=== PATIENT | female | born 1930 | race Caucasian/White ===

== ENCOUNTER 2017-08-12 14:50 | Inpatient (IN) | payer MEDICARE, OTHER ==
[~2017-08-12] VITALS: Ht 152.4 cm; Wt 75.4 kg
[~2017-08-12 14:50] MED LIST: CALCTAB36 PO; CAND32TA10 PO; CART300C PO; DORZ2SOL EACH EYE; LATA0.002 EACH EYE; MONT10TA4 PO; MULT1TAB59 PO; TOBRSUS9 RIGHT EYE; VITA2000 PO
[2017-08-12 14:58] VITALS: PULSE 104; RESP 18; TEMP 97.9; O2SAT 95
[2017-08-12 15:02] VITALS: BP 106/50; PULSE 104; RESP 20; O2SAT 95
[2017-08-12 15:10] VITALS: BP 106/50; O2SAT 95
--- NOTE | 2017-08-12 15:11 | PD ---
HPI Chief Complaint: Chest Pain Time Seen by Provider: 14:56 Travel History International Travel<30 days: No Contact w/Intl Traveler<30days: No Traveled to known affect area: No History of Present Illness HPI Patient comes from an [facility] complaining of chest pain that began shortly prior to arrival. Patient states she was sitting when she began feeling of pressure on left side of her chest with associated shortness of breath. Patient received 162 mg of aspirin along with oxygen by EMS that seemed to improve her symptoms, but not completely resolved. 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 Denies anything making it worse. Denies any radiation of the pain. Denies any headache, dizziness, numbness or tingling anywhere, back pain , headache, loss or change in bowel or bladder, or abdominal pain. PFSH Past Medical History Hx Anticoagulant Therapy: No Arthritis: Yes (OSTEOARTHRITIS) Asthma: Yes Autoimmune Disease: No Blood Disorders: Yes Anxiety: No Depression: No Heart Rhythm Problems: No Cancer: No Cardiovascular Problems: Yes High Cholesterol: Yes Chemotherapy: No Chest Pain: No Congestive Heart Failure: No COPD: No Cerebrovascular Accident: No Diabetes: No Diminished Hearing: No Endocrine: No Gastrointestinal Disorders: Yes GERD: No Glaucoma: Yes Genitourinary: No Hepatitis: No Hiatal Hernia: Yes Hypertension: Yes Immune Disorder: Yes (ITP) Musculoskeletal: Yes Neurologic: No Psychiatric: No Reproductive: Yes Respiratory: Yes Immunizations Current: Yes Myocardial Infarction: No Radiation Therapy: No Sickle Cell Disease: No Sleep Apnea: No Ulcer: No ?: Not Menopausal: Yes Past Surgical History Abdominal Surgery: Yes (EPIGASTRIC HERNIA) Appendectomy: Yes Arteriovenous Shunt: No Cholecystectomy: No Eye Surgery: Yes (BILAT CATARACT SURGERY WITH OLR) Gynecologic Surgery: Yes (HYSTERECTOMY) Hysterectomy: No Insulin Pump: No Joint Replacement: Yes (RT TKR; RT RADIAL HEAD) Neurologic Surgery: No Oral Surgery: Yes (DENTURE PREP) Pacemaker: No Other Surgery: Yes (IVC filter April 2007-PE) Social History Alcohol Use: Yes Tobacco Use: No Substance Use: No Allergies-Medications (Allergen,Severity, Reaction): Coded Allergies: No Known Allergies (Verified , 08/12/17) Reported Meds & Prescriptions Reported Meds & Active Scripts Active Dorzolamide Opth Drops (Dorzolamide HCl) 2% Soln 1 Drop EACH EYE BID Latanoprost Opth Drops (Latanoprost) 0.005% Drops 1 Drop EACH EYE HS Refrigerate until opened. Reported Bactrim DS (Sulfamethoxazole-Trimethoprim) 800-160 Mg Tab 1 Tab PO BID Ventolin Hfa 18 GM Inh (Albuterol Sulfate) 90 Mcg/Act Aer 2 Puff INH Q6H PRN Fluticasone Nasal [place] 50 Mcg/Act Naspr 50 Mcg EACH NARE BID 50 mcg/spray Calcium 500+D (Calcium Carbonate-Cholecalciferol) 500-400 Mg-Unit Tab 1 Tab PO DAILY Centrum Women Tablet (Multivitamin/Iron/Folic Acid) 1 Each Tablet 1 Tab PO DAILY Montelukast (Montelukast Sodium) 10 Mg Tab 1 Tab PO HS Cartia Xt (Diltiazem ER 24 HR) 300 Mg Caper 1 Cap PO DAILY Candesartan (Candesartan Cilexetil) 32 Mg Tab 1 Tab PO DAILY Vitamin D3 (Cholecalciferol) 2,000 Unit Cap 1 Cap PO DAILY Review of Systems Except as stated in HPI: all other systems reviewed are Neg Physical Exam Narrative GENERAL: Well-developed, overly nourished, in no acute distress, and non-ill appearing. SKIN: Focused skin assessment warm and dry. HEAD: Atraumatic. Normocephalic. EYES: Pupils equal and round. EOMI. No scleral icterus. No injection or drainage. ENT: No nasal bleeding or discharge. Mucous membranes pink and moist. NECK: Trachea midline. Supple. No nuclear rigidity. CARDIOVASCULAR: Regular rate and rhythm. Murmur appreciated. Radial pulses 2+ , intact, equal bilaterally. RESPIRATORY: No accessory muscle use. No respiratory distress. Clear to auscultation. Breath sounds equal bilaterally. MUSCULOSKELETAL: No obvious deformities. No clubbing. No cyanosis. No edema. Full range of motion. NEUROLOGICAL: Awake and alert. No obvious cranial nerve deficits. Motor grossly within normal limits. Normal speech. PSYCHIATRIC: Appropriate mood and affect; insight and judgment normal. Data Data Last Documented VS Vital Signs Date Time Temp Pulse Resp B/P (MAP) Pulse Ox O2 Delivery O2 Flow Rate FiO2 08/12/17 15:10 106/50 (68) 95 08/12/17 15:08 Room Air 08/12/17 15:02 104 20 08/12/17 14:58 97.9 Orders Orders Electrocardiogram (08/12/17 15:02) Basic Metabolic Panel (Bmp) (08/12/17 15:02) B-Type Natriuretic Peptide (08/12/17 15:02) Ckmb (Isoenzyme) Profile (08/12/17 15:02) Complete Blood Count With Diff (08/12/17 15:02) Magnesium (Mg) (08/12/17 15:02) Prothrombin Time / Inr (Pt) (08/12/17 15:02) Act Partial Throm Time (Ptt) (08/12/17 15:02) Troponin I (08/12/17 15:02) Chest, Single Ap (08/12/17 15:02) Ecg Monitoring (08/12/17 15:02) Bilateral Bp Monitoring (08/12/17 15:02) Iv Access Insert/Monitor (08/12/17 15:02) Oximetry (08/12/17 15:02) Oxygen Administration (08/12/17 15:02) Sodium Chloride 0.9% Flush (Ns Flush) (08/12/17 15:15) Admit Order (Ed Use Only) (08/12/17 16:44) Labs Laboratory Tests Test 08/12/17 15:25 White Blood Count 8.0 TH/MM3 Red Blood Count 4.38 MIL/MM3 Hemoglobin 12.7 GM/DL Hematocrit 39.6 % Mean Corpuscular Volume 90.3 FL Mean Corpuscular Hemoglobin 28.9 PG Mean Corpuscular Hemoglobin Concent 32.0 % Red Cell Distribution Width 16.0 % Platelet Count 63 TH/MM3 Mean Platelet Volume 12.7 FL Neutrophils (%) (Auto) 69.6 % Lymphocytes (%) (Auto) 17.7 % Monocytes (%) (Auto) 10.8 % Eosinophils (%) (Auto) 1.5 % Basophils (%) (Auto) 0.4 % Neutrophils # (Auto) 5.6 TH/MM3 Lymphocytes # (Auto) 1.4 TH/MM3 Monocytes # (Auto) 0.9 TH/MM3 Eosinophils # (Auto) 0.1 TH/MM3 Basophils # (Auto) 0.0 TH/MM3 CBC Comment AUTO DIFF Prothrombin Time 11.7 SEC Prothromb Time International Ratio 1.1 RATIO Activated Partial Thromboplast Time 24.0 SEC Blood Urea Nitrogen 25 MG/DL Creatinine 1.53 MG/DL Random Glucose 121 MG/DL Calcium Level 9.1 MG/DL Magnesium Level 2.5 MG/DL Sodium Level 141 MEQ/L Potassium Level 4.3 MEQ/L Chloride Level 108 MEQ/L Carbon Dioxide Level 26.1 MEQ/L Anion Gap 7 MEQ/L Estimat Glomerular Filtration Rate 32 ML/MIN Total Creatine Kinase 59 U/L Troponin I 0.20 NG/ML B-Type Natriuretic Peptide 311 PG/ML MDM Medical Decision Making Medical Screen Exam Complete: Yes Emergency Medical Condition: Yes Interpretation(s) EKG reviewed by Dr. Wright shows normal sinus rhythm with ventricular rate of 96. No STEMI. Chest x-ray read by the radiologist shows: Cardiomegaly with small left basilar effusion and atelectasis. Differential Diagnosis Acute coronary syndrome, pneumonia, electrolyte abnormality, pneumothorax, angina, other Narrative Course Patient was seen and examined. IV was established patient states and cardiac monitoring. Initial laboratory and radiological studies were ordered. Discussed all findings and plan care of patient was agreeable for admission. All questions were answered. Discussed patient with Dr. Wright, who is in agreement with plan of care and disposition. Discussed patient with hospitalist who is agreeable to admit the patient. Patient remained stable throughout ED course. Physician Communication Physician Communication [id number] Kumar's QUINTEN Emelina, who is agreeable to admit the patient. Diagnosis Primary Impression: Non-STEMI (non-ST elevated myocardial infarction) Additional Impression: Pleural effusion Admitting Information Admitting Physician Requests: Admit Condition: Stable Nguyễn Hernandez Aug 12, 2017 15:11
[2017-08-12] MEDS ORDERED: SODIUM CHLORIDE 0.9% FLUSH 10 ML FLUSH IVF PRN (15:15)
[2017-08-12] MEDS ORDERED: BACT800T5 PO (15:15)
[2017-08-12] MEDS ORDERED: VENTAER INH (15:15)
[2017-08-12] MEDS ORDERED: FLUT50SP EACH NARE (15:15)
--- NOTE | 2017-08-12 15:39 | RADRPT ---
EXAM DATE/TIME: 08/12/2017 15:12 [place] COMPARISON: SHOULDER RIGHT COMPLETE (>2VWS), November 19, 2014, 16:52. INDICATIONS : Short of breath. MEDICAL HISTORY : None. SURGICAL HISTORY : None. ENCOUNTER: Initial ACUITY: 1 day PAIN SCORE: 0/10 LOCATION: Bilateral chest FINDINGS: The exam demonstrates cardiomegaly. There is a small left basilar effusion. There are chronic appeari ng interstitial changes. The visualized bony structures are grossly intact. CONCLUSION: 1. Cardiomegaly with small left basilar effusion and atelectasis. Alex Mondragon MD on August 12, 2017 at 15:33 Board Certified Radiologist. This report was verified electronically.
[2017-08-12 15:41] LABS: AUTOMATED NEUTROPHIL # 5.6 TH/MM3 (1.8-7.7); BASOPHIL % 0.4 % (0.0-2.0); EOSINOPHIL # 0.1 TH/MM3 (0-0.4); EOSINOPHIL % 1.5 % (0.0-4.0); HEMATOCRIT 39.6 % (35.0-46.0); LYMPH % 17.7 % (9.0-44.0); LYMPHOCYTE # 1.4 TH/MM3 (1.0-4.8); MEAN CELL VOLUME 90.3 FL (80.0-100.0); MEAN CORPUSCULAR HEMOGLOBIN 28.9 PG (27.0-34.0); MONO % 10.8 % (0.0-8.0); NEUT % 69.6 % (16.0-70.0); PLATELET COUNT 63 TH/MM3 (150-450); RED BLOOD COUNT 4.38 MIL/MM3 (4.00-5.30)
[2017-08-12 15:49] LABS: INTERNATIONAL NORMALIZED RATIO 1.1 RATIO; PROTHROMBIN TIME - PATIENT 11.7 SEC (9.8-11.6)
[2017-08-12 15:59] LABS: BICARBONATE 26.1 MEQ/L (21.0-32.0); MAGNESIUM 2.5 MG/DL (1.5-2.5); POTASSIUM 4.3 MEQ/L (3.5-5.1)
[2017-08-12 16:19] LABS: HEMO FLAGS AUTO DIFF
[2017-08-12 17:00] VITALS: BP 111/53; PULSE 81; RESP 16; O2SAT 96
[2017-08-12 17:01] LABS: OVALOCYTES 1+ (NORMAL); PLATELET ESTIMATE SMEAR LOW (NORMAL); PLATELET MORPHOLOGY GIANT (NORMAL); SCAN/DIFF AUTO DIFF CONFIRMED
[2017-08-12] MEDS ORDERED: LACTULOSE SYRUP 20 GM/30 ML CUP PO PRN (17:15)
[2017-08-12] MEDS ORDERED: ONDANSETRON HCL 4 MG/2 ML VIAL IVP PRN (17:15)
[2017-08-12] MEDS ORDERED: NALOXONE HCL 0.4 MG/ML AMP IV PUSH PRN (17:15)
[2017-08-12] MEDS ORDERED: SENNOSIDES 8.6 MG TAB PO PRN (17:15)
[2017-08-12] MEDS ORDERED: BISACODYL 10 MG SUPP RECTAL PRN (17:15)
[2017-08-12] MEDS ORDERED: METOCLOPRAMIDE HCL 10 MG/2 ML VIAL IV PUSH PRN (17:15)
[2017-08-12] MEDS ORDERED: SODIUM CHLORIDE 0.9% FLUSH 10 ML FLUSH IV FLUSH PRN (17:15)
[2017-08-12] MEDS ORDERED: ACETAMINOPHEN 325 MG TAB PO PRN (17:15)
[2017-08-12] MEDS ORDERED: MAGNESIUM HYDROXIDE SUSP 30 ML CUP PO PRN (17:15)
[2017-08-12] MEDS ORDERED: PROCHLORPERAZINE 25 MG SUPP RECTAL PRN (17:15)
[2017-08-12] MEDS ORDERED: RESP: ALBUTEROL 2.5 MG/IPRATROPIUM 0.5 MG NEB (PRN) NEB (17:30)
[2017-08-12] MEDS ORDERED: MORPHINE SULFATE 4 MG/ML INJ IV PUSH PRN (17:30)
[2017-08-12] MEDS ORDERED: NITROGLYCERIN 400 MCG/SPRAY 4.9 GM BOTTLE SL PRN (17:45)
[2017-08-12] MEDS ORDERED: ALBUTEROL SULFATE 90 MCG/ACT HFA 8 GM INHALER INH PRN (17:45)
[2017-08-12] MEDS ORDERED: FUROSEMIDE 40 MG/4 ML VIAL IV PUSH ONE (18:00)
[2017-08-12] MEDS ORDERED: PANTOPRAZOLE SOD 40 MG DELAYED RELEASE TAB PO ONE (18:00)
--- NOTE | 2017-08-12 18:05 | HHI.HP ---
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 Covington, aortic stenosis, history of PE previously on Coumadin status post IVC filter placement, dyslipidemia, asthma and glaucoma who presents to [facility] ED with complaints of chest pain and shortness of breath x 1 day. Patient states that she was at the assisted living facility [facility] earlier today when she woke up from a nap and experienced left- sided chest pain while still in bed with associated shortness of breath. Patient denies any radicular complaints. Patient was given 162mg aspirin as well as oxygen by EMS with improvement in her symptoms. At present, patient denies any complaints of chest pain but does report some mild dyspnea. She states she's only had lower extremity swelling since she's been in our ED today. Patient was at home up until last Friday when she was admitted to [facility] due to her normal caregiver being out of town. In the ED, patient was noted to have elevated troponin 0.20. EKG was unremarkable. Patient's BNP is slightly elevated at 311. Chest x-ray revealed a small left pleural effusion. She was also noted to have elevated creatinine 1.53. Patient has a natural science curator who she thinks is Dr. Lao. Review of Systems Constitutional: COMPLAINS OF: Fatigue, DENIES: Diaphoretic episodes, Fever, Weight gain, Weight loss, Chills, Dizziness, Change in appetite Endocrine: DENIES: Abnorml menstrual pattern, Heat/cold intolerance, Polydipsia Eyes: DENIES: Blurred vision, Diplopia, Eye inflammation, Eye pain Ears, nose, mouth, throat: DENIES: Tinnitus, Hearing loss, Vertigo, Nasal discharge, Oral lesions Respiratory: DENIES: Apneas, Cough, Snoring, Wheezing, Hemoptysis Cardiovascular: COMPLAINS OF: Chest pain, Lower Extremity Edema, DENIES: Palpitations, Syncope, Dyspnea on Exertion, PND Gastrointestinal: DENIES: Abdominal pain, Black stools, Bloody stools Genitourinary: DENIES: Abnormal vaginal bleeding, Dysmenorrhea, Dyspareunia Musculoskeletal: DENIES: Joint pain, Muscle aches, Stiffness Integumentary: DENIES: Abnormal pigmentation, Pruritus Hematologic/lymphatic: DENIES: Bruising, Lymphadenopathy Immunologic/allergic: DENIES: Eczema, Urticaria Neurologic: COMPLAINS OF: Abnormal gait, DENIES: Headache, Localized weakness, Paresthesias, Seizures, Speech Problems Psychiatric: DENIES: Anxiety, Confusion, Mood changes, Depression, Hallucinations, Agitation, Suicidal Ideation, Homicidal Ideation Except as stated in HPI: all other systems reviewed are Neg Past Family Social History Past Medical History Hypertension Hyperlipidemia Aortic stenosis Chronic ITP with platelet count chronically around 30,000 Asthma Glaucoma 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 Bactrim DS (Sulfamethoxazole-Trimethoprim) 800-160 Mg Tab 1 Tab PO BID Ventolin Hfa 18 GM Inh (Albuterol Sulfate) 90 Mcg/Act Aer 2 Puff INH Q6H PRN Fluticasone Nasal [place] 50 Mcg/Act Naspr 50 Mcg EACH NARE BID 50 mcg/spray Calcium 500+D (Calcium Carbonate-Cholecalciferol) 500-400 Mg-Unit Tab 1 Tab PO DAILY Centrum Women Tablet (Multivitamin/Iron/Folic Acid) 1 Each Tablet 1 Tab PO DAILY Montelukast (Montelukast Sodium) 10 Mg Tab 1 Tab PO HS Cartia Xt (Diltiazem ER 24 HR) 300 Mg Caper 1 Cap PO DAILY Candesartan (Candesartan Cilexetil) 32 Mg Tab 1 Tab PO DAILY Vitamin D3 (Cholecalciferol) 2,000 Unit Cap 1 Cap PO DAILY Allergies: Coded Allergies: No Known Allergies (Verified , 08/12/17) Active Ordered Medications Current Medications Medications (Trade) Dose Ordered Sig/Anamika Route Start Time Stop Time Status Last Admin (NS Flush) 2 ml UNSCH PRN IVF 08/12/17 15:15 (NS Flush) 2 ml UNSCH PRN IV FLUSH 08/12/17 17:15 UNV (NS Flush) 2 ml BID IV FLUSH 08/12/17 21:00 UNV (Tylenol) 650 mg Q4H PRN PO 08/12/17 17:15 UNV (Zofran Inj) 4 mg Q6H PRN IVP 08/12/17 17:15 UNV (Reglan Inj) 5 mg Q6H PRN IV PUSH 08/12/17 17:15 UNV (Compazine Supp) 25 mg Q12H PRN SD 08/12/17 17:15 UNV (Narcan Inj) 0.4 mg UNSCH PRN IV PUSH 08/12/17 17:15 UNV (Mary-Colace) 1 tab BID PO 08/12/17 21:00 UNV (Milk Of Magnesia Liq) 30 ml Q12H PRN PO 08/12/17 17:15 UNV (Senokot) 17.2 mg Q12H PRN PO 08/12/17 17:15 UNV (Dulcolax Supp) 10 mg DAILY PRN RECTAL 08/12/17 17:15 UNV (Lactulose Liq) 30 ml DAILY PRN PO 08/12/17 17:15 UNV (Lasix Inj) 40 mg ONCE ONCE IV PUSH 08/12/17 17:30 08/12/17 17:31 UNV (Ecotrin Ec) 81 mg DAILY PO 08/13/17 09:00 UNV (Morphine Inj) 2 mg Q3H PRN IV PUSH 08/12/17 17:30 UNV Family History Patient denies any significant past family medical history. Social History Patient denies any tobacco use. She admits alcohol consumption of 2 glasses of white wine nightly. She denies any illicit drug use. 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 Physical Exam Vital Signs Vital Signs Date Time Temp Pulse Resp B/P (MAP) Pulse Ox O2 Delivery O2 Flow Rate FiO2 08/12/17 17:00 81 16 111/53 (72) 96 Room Air 08/12/17 15:10 106/50 (68) 95 08/12/17 15:08 96 Room Air 08/12/17 15:02 104 20 106/50 (68) 95 Room Air 08/12/17 14:58 97.9 104 18 95 Physical Exam GENERAL: This is a well-nourished, well-developed patient, in no apparent distress. Awake and alert. Sitting up in hospital bed. SKIN: (+)hyperpigmentation changes noted anterior BLEs. Warm and dry. HEAD: Atraumatic. Normocephalic. No temporal or scalp tenderness. EYES: Pupils equal round and reactive. Extraocular motions intact. No scleral icterus. No injection or drainage. ENT: Nose without bleeding, purulent drainage. Throat without erythema, tonsillar hypertrophy or exudate. Uvula midline. Airway patent. NECK: Trachea midline. No lymphadenopathy. Supple, nontender, no meningeal signs. CARDIOVASCULAR: Regular rate and rhythm without murmurs, gallops, or rubs. S1. S2 NO S3 OR S4 RESPIRATORY: Clear to auscultation. Breath sounds equal bilaterally. No wheezes , rales, or rhonchi. GASTROINTESTINAL: Abdomen soft, non-tender, nondistended. No hepato-splenomegaly , or palpable masses. No guarding. MUSCULOSKELETAL: 2+ pitting edema bilateral lower extremities. NO CLUBBING OR CYANOSIS NEUROLOGICAL: Awake and alert. Patient is able to move all extremities spontaneously. Normal speech. INSIGHT AND JUDGEMENT ARE GOOD MOOD AND BEHAVIOR ARE APPROPRIATE Laboratory Laboratory Tests Test 08/12/17 15:25 White Blood Count 8.0 Red Blood Count 4.38 Hemoglobin 12.7 Hematocrit 39.6 Mean Corpuscular Volume 90.3 Mean Corpuscular Hemoglobin 28.9 Mean Corpuscular Hemoglobin Concent 32.0 Red Cell Distribution Width 16.0 Platelet Count 63 Mean Platelet Volume 12.7 Neutrophils (%) (Auto) 69.6 Lymphocytes (%) (Auto) 17.7 Monocytes (%) (Auto) 10.8 Eosinophils (%) (Auto) 1.5 Basophils (%) (Auto) 0.4 Neutrophils # (Auto) 5.6 Lymphocytes # (Auto) 1.4 Monocytes # (Auto) 0.9 Eosinophils # (Auto) 0.1 Basophils # (Auto) 0.0 CBC Comment AUTO DIFF Differential Comment AUTO DIFF CONFIRMED Platelet Estimate LOW Platelet Morphology Comment GIANT Ovalocytes 1+ Prothrombin Time 11.7 Prothromb Time International Ratio 1.1 Activated Partial Thromboplast Time 24.0 Blood Urea Nitrogen 25 Creatinine 1.53 Random Glucose 121 Calcium Level 9.1 Magnesium Level 2.5 Sodium Level 141 Potassium Level 4.3 Chloride Level 108 Carbon Dioxide Level 26.1 Anion Gap 7 Estimat Glomerular Filtration Rate 32 Total Creatine Kinase 59 Troponin I 0.20 B-Type Natriuretic Peptide 311 Result Diagram: 08/12/17 1525 08/12/17 1525 Imaging Last Impressions Chest X-Ray 08/12/17 1502 Signed Impressions: Service Date/Time: Saturday, August 12, 2017 15:12 - CONCLUSION: 1. Cardiomegaly with small left basilar effusion and atelectasis. MD Sabina Edwards VTE Risk Assessment Sabina VTE Risk Assessment: Mod/High Risk (score >= 2) VTE Pharm Contraindication: Thrombocytopenia(<50) N[place]ini Risk Assessment Model Point Value = 1 Point Value = 2 Point Value = 3 Point Value = 5 Age 41-60 Minor surgery BMI > 25 kg/m2 Swollen legs Varicose veins or History of unexplained or recurrent spontaneous Oral contraceptives or hormone replacement Sepsis (< 1 month) Serious lung disease, including pneumonia (< 1 month) Abnormal pulmonary function Acute myocardial infarction Congestive heart failure (< 1 month) History of inflammatory bowel disease Medical patient at bed rest Age 61-74 Arthroscopic surgery Major open surgery (> 45 min) Laparoscopic surgery (> 45 min) Malignancy Confined to bed (> 72 hours) Immobilizing plaster cast Central venous access Age >= 75 History of VTE Family history of VTE Factor V Leiden Prothrombin [id number] Lupus anticoagulant Anticardiolipin antibodies Elevated serum homocysteine Heparin-induced thrombocytopenia Other congenital or acquired thrombophilia Stroke (< 1 month) Elective arthroplasty Hip, pelvis, or leg fracture Acute spinal cord injury (< 1 month) Prophylaxis Regimen Total Risk Factor Score Risk Level Prophylaxis Regimen 0-1 Low Early ambulation 2 Moderate Order ONE of the following: *Sequential Compression Device (SCD) *Heparin 5000 units SQ BID 3-4 Higher Order ONE of the following medications: *Heparin 5000 units SQ TID *Enoxaparin/Lovenox 40 mg SQ daily (WT < 150 kg, CrCl > 30 mL/min) *Enoxaparin/Lovenox 30 mg SQ daily (WT < 150 kg, CrCl > 10-29 mL/min) *Enoxaparin/Lovenox 30 mg SQ BID (WT < 150 kg, CrCl > 30 mL/min) AND/OR *Sequential Compression Device (SCD) 5 or more Highest Order ONE of the following medications: *Heparin 5000 units SQ TID (Preferred with Epidurals) *Enoxaparin/Lovenox 40 mg SQ daily (WT < 150 kg, CrCl > 30 mL/min) *Enoxaparin/Lovenox 30 mg SQ daily (WT < 150 kg, CrCl > 10-29 mL/min) *Enoxaparin/Lovenox 30 mg SQ BID (WT < 150 kg, CrCl > 30 mL/min) AND *Sequential Compression Device (SCD) Assessment and Plan Assessment and Plan 86-year-old female with a past medical history significant for hypertension, 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 Covington, aortic stenosis, history of PE previously on Coumadin status post IVC filter placement, dyslipidemia, asthma and glaucoma who presents to [facility] ED with complaints of chest pain and shortness of breath x 1 day. NSTEMI - Initial troponin 0.20 - EKG personally interpreted revealing normal sinus rhythm with no evidence of acute ischemia - Consult cardiology - Continue to cycle cardiac enzymes and EKGs - ASA daily - Morphine IV prn chest pain - Continuous cardiac monitoring - Supplemental oxygen - unable to start on Heparin drip due to hx of chronic ITP CHF, acute - CXR personally reviewed showing cardiomegaly with small left basilar effusion and atelectasis - BNP 311 - Lasix IV 40 mg 1 - strict I&Os - obtain 2D echocardiogram - fluid/salt restricted diet - Supplemental oxygen. Monitor strict I's. SABIHA - Creatinine 1.53, GFR 32 - Baseline creatinine appears to be around 0.9 - Avoid nephrotoxic agents - BUN elevated, possibly due to dehydration - am labs to monitor trend Chronic ITP - Patient follows with Dr. Covington as outpatient with a chronic platelet level of 30,000. Currently plt count 63,000. - Consult hematology/Dr. Covington to assist with anticoagulation Hypertension - Controlled at present - Resume patient's home antihypertensives to include diltiazem 300 mg by mouth daily, candesartan 32mg daily (may need to hold if creatinine fxn worsens) - Monitor BP Asthma, not in acute exacerbation - Albuterol inhaler when necessary - Resume patient's montelukast 10mg daily Glaucoma - Resume home eyedrops Hx of PE previously on Coumadin s/p IVC filter placement - stable Elevated blood sugar - No documented history of diabetes - obtain HgbA1c DVT prophylaxis - Bilateral SCD/TANA hose The exam, history, and the medical decision-making described in the above note were completed with the assistance of the mid-level provider. I reviewed and agree with the findings presented. I attest that I had a [id number] encounter with the patient on the same day, and personally performed and documented my assessment and findings in the medical record. Code Status FULL CODE Discussed Condition With ALEXEY ALMENDAREZ, patient, Dr. Kumar AND FAMILY AT BEDSIDE Physician Certification 2 Midnight Certification Type: Admission for Inpatient Services Order for Inpatient Services The services are ordered in accordance with Medicare regulations or non- Medicare payer requirements, as applicable. In the case of services not specified as inpatient-only, they are appropriately provided as inpatient services in accordance with the 2-midnight benchmark. Estimated LOS (days): 3 3 days is the estimated time the patient will need to remain in the hospital, assuming treatment plan goals are met and no additional complications. Post-Hospital Plan: Not yet determined Emelina Montalvo Aug 12, 2017 18:05 Bradley Kumar DO Aug 12, 2017 18:38
[2017-08-12 18:15] LABS: BACTERIA, URINE RARE /hpf; BLOOD, URINE NEG (NEG); COMMENT (UR) CULTURE INDICATED; CULTURE IF INDICATED CULTURE INDICATED; GLUCOSE,URINE NEG (NEG); KETONE, URINE NEG (NEG); NITRITE,URINE NEG (NEG); RENAL EPITHELIAL CELLS <1 /hpf; URINE COLOR YELLOW (YELLW/STRAW)
[2017-08-12 18:35] VITALS: O2SAT 97
[2017-08-12 20:00] VITALS: BP 107/54; PULSE 69; PULSE 78; RESP 18; TEMP 97.3; O2SAT 96
[2017-08-12] MEDS: DORZOLAMIDE 2% OPTH SOLN 200 DROP/10 ML BTLO EACH EYE SCH (20:33)
[2017-08-12] MEDS: LATANOPROST 0.005% OPHT SOLN 2.5 ML BTL EACH EYE SCH (20:33)
[2017-08-12] MEDS: FLUTICASONE PROPIONATE 50 MCG/ACT 16 GM NASAL SPRAY EACH NARE SCH (20:33)
[2017-08-12] MEDS: SODIUM CHLORIDE 0.9% FLUSH 10 ML FLUSH IV FLUSH SCH (20:34)
[2017-08-12] MEDS: MONTELUKAST SODIUM 10 MG TAB PO SCH (20:35)
[2017-08-12] MEDS: DOCUSATE SODIUM 50 MG/SENNA 8.6 MG TAB PO SCH (20:35)
[2017-08-12] MEDS: guaiFENesin E.R. 600 MG TAB PO SCH (20:35)
[2017-08-12] MEDS: SULFAMETHOXAZOLE-TRIMETHOPRIM DS 800-160 MG TAB PO SCH (20:35)
[2017-08-13] VITALS (9 sets, daily range): BP systolic 96–114; BP diastolic 47–55; PULSE 67–82; RESP 16–20; TEMP 97.3–98.5; O2SAT 93–97
[2017-08-13 03:47] LABS: AUTOMATED NEUTROPHIL # 3.8 TH/MM3 (1.8-7.7); BASOPHIL % 0.4 % (0.0-2.0); EOSINOPHIL # 0.2 TH/MM3 (0-0.4); EOSINOPHIL % 2.9 % (0.0-4.0); HEMATOCRIT 37.2 % (35.0-46.0); LYMPH % 25.3 % (9.0-44.0); LYMPHOCYTE # 1.7 TH/MM3 (1.0-4.8); MEAN CELL VOLUME 89.5 FL (80.0-100.0); MEAN CORPUSCULAR HEMOGLOBIN 29.5 PG (27.0-34.0); NEUT % 56.4 % (16.0-70.0); PLATELET COUNT 53 TH/MM3 (150-450); RED BLOOD COUNT 4.16 MIL/MM3 (4.00-5.30); WHITE BLOOD COUNT 6.8 TH/MM3 (4.0-11.0)
[2017-08-13 03:50] LABS: HEMO FLAGS AUTO DIFF
[2017-08-13 04:04] LABS: ALT (GPT) 30 U/L (10-53); ANION GAP 7 MEQ/L (5-15); AST (GOT) 16 U/L (15-37); BICARBONATE 26.1 MEQ/L (21.0-32.0); BLOOD UREA NITROGEN 26 MG/DL (7-18); CHLORIDE 108 MEQ/L (98-107); GLOMERULAR FILTRATION RATE 33 ML/MIN (>89); MAGNESIUM 2.5 MG/DL (1.5-2.5); POTASSIUM 3.9 MEQ/L (3.5-5.1); SODIUM (NA) 141 MEQ/L (136-145)
[2017-08-13 04:07] LABS: ALKALINE PHOSPHATASE 67 U/L (45-117); FREE T4 0.89 NG/DL (0.76-1.46); HDL CHOLESTEROL 78.2 MG/DL (40.0-60.0); LDL CHOLESTEROL 93 MG/DL (0-99); TOTAL BILIRUBIN ADULT 0.5 MG/DL (0.2-1.0)
[2017-08-13 05:05] LABS: ACANTHOCYTES OCC (NORMAL); OVALOCYTES 1+ (NORMAL); PLATELET ESTIMATE SMEAR LOW (NORMAL); PLATELET MORPHOLOGY ENLARGED (NORMAL); SCAN/DIFF AUTO DIFF CONFIRMED
[2017-08-13] MEDS: guaiFENesin E.R. 600 MG TAB PO SCH ×2 (09:12→20:18)
[2017-08-13] MEDS: DILTIAZEM-CD 300 MG CAP ER PO SCH (09:12)
[2017-08-13] MEDS: LOSARTAN 50 MG TAB PO SCH (09:12)
[2017-08-13] MEDS: SULFAMETHOXAZOLE-TRIMETHOPRIM DS 800-160 MG TAB PO SCH ×2 (09:12→20:18)
[2017-08-13] MEDS: MULTIVITAMIN TAB PO SCH (09:12)
[2017-08-13] MEDS: DOCUSATE SODIUM 50 MG/SENNA 8.6 MG TAB PO SCH (09:13)
[2017-08-13] MEDS: PANTOPRAZOLE SOD 40 MG DELAYED RELEASE TAB PO SCH (09:13)
[2017-08-13] MEDS: FUROSEMIDE 40 MG TAB PO SCH (09:13)
[2017-08-13] MEDS: CALCIUM/VITAMIN D 250 MG/125 U TAB PO SCH (09:13)
[2017-08-13] MEDS: CHOLECALCIFEROL (VIT D3) 1000 UNIT TAB PO SCH (09:13)
[2017-08-13] MEDS: ASPIRIN EC 81 MG TABEC PO SCH (09:13)
[2017-08-13] MEDS: DORZOLAMIDE 2% OPTH SOLN 200 DROP/10 ML BTLO EACH EYE SCH ×2 (09:17→20:19)
[2017-08-13] MEDS: FLUTICASONE PROPIONATE 50 MCG/ACT 16 GM NASAL SPRAY EACH NARE SCH ×2 (09:17→20:19)
[2017-08-13] MEDS: SODIUM CHLORIDE 0.9% FLUSH 10 ML FLUSH IV FLUSH SCH ×2 (09:20→20:17)
[2017-08-13 09:33] LABS: HEMOGLOBIN A1a 1.3 %; HEMOGLOBIN A1b 0.9 %; HEMOGLOBIN Ao 84.5 %; HEMOGLOBIN P3 5.6 %
--- NOTE | 2017-08-13 10:20 | HHI.PR ---
Subjective Remarks Follow-up atypical chest pain/angina 08/13/17-patient seen and examined, denies anymore chest pain since admission. No other issues. Awaiting for cardiology consult Objective Vitals Vital Signs Date Time Temp Pulse Resp B/P (MAP) Pulse Ox O2 Delivery O2 Flow Rate FiO2 08/13/17 08:00 97.3 81 20 107/53 (71) 93 08/13/17 04:00 97.9 82 16 104/52 (69) 95 08/13/17 00:00 98.2 67 18 101/55 (70) 95 08/12/17 20:00 69 08/12/17 20:00 Room Air 08/12/17 20:00 97.3 78 18 107/54 (71) 96 08/12/17 18:35 97 21 08/12/17 17:00 81 16 111/53 (72) 96 Room Air 08/12/17 15:10 106/50 (68) 95 08/12/17 15:08 96 Room Air 08/12/17 15:02 104 20 106/50 (68) 95 Room Air 08/12/17 14:58 97.9 104 18 95 I/O 08/12/17 08/12/17 08/12/17 08/13/17 08/13/17 08/13/17 07:00 15:00 23:00 07:00 15:00 23:00 Output Total 900 ml Balance -900 ml Output Urine Total 900 ml Result Diagram: 08/13/17 0320 08/13/17 0320 Imaging Last Impressions Chest X-Ray 08/12/17 1502 Signed Impressions: Service Date/Time: Saturday, August 12, 2017 15:12 - CONCLUSION: 1. Cardiomegaly with small left basilar effusion and atelectasis. Alex Mondragon MD Objective Remarks GENERAL: NAD SKIN: Warm and dry. HEAD: Normocephalic. EYES: No scleral icterus. No injection or drainage. NECK: Supple, trachea midline. No JVD or lymphadenopathy. CARDIOVASCULAR: Regular rate and rhythm without murmurs, gallops, or rubs. RESPIRATORY: Breath sounds equal bilaterally. No accessory muscle use. GASTROINTESTINAL: Abdomen soft, non-tender, nondistended. MUSCULOSKELETAL: No cyanosis, or edema. BACK: Nontender without obvious deformity. No CVA tenderness. A/P Problem List: (1) Pleural effusion ICD Code: J90 - Pleural effusion, not elsewhere classified Status: Acute (2) Non-STEMI (non-ST elevated myocardial infarction) ICD Code: I21.4 - Non-ST elevation (NSTEMI) myocardial infarction Status: Acute Assessment and Plan 86-year-old female with NSTEMI - Consult cardiology - ASA daily - Morphine IV prn chest pain - unable to start on Heparin drip due to hx of chronic ITP - 2-D echo pending CHF, acute - CXR personally reviewed showing cardiomegaly with small left basilar effusion and atelectasis - BNP 311 - Lasix IV 40 mg 1 - strict I&Os - obtain 2D echocardiogram SABIHA - Creatinine 1.53, GFR 32 - Baseline creatinine appears to be around 0.9 - Avoid nephrotoxic agents Chronic ITP - Patient follows with Dr. Covington as outpatient with a chronic platelet level of 30,000. Currently plt count 63,000. - Consult hematology/Dr. Covington to assist with anticoagulation Hypertension - BP soft - Currently on diltiazem 300 mg by mouth daily, candesartan 32mg daily (may need to hold if creatinine fxn worsens) - Monitor BP Asthma, not in acute exacerbation - Albuterol inhaler when necessary - Continue montelukast 10mg daily Glaucoma - Continue home eyedrops Hx of PE previously on Coumadin s/p IVC filter placement - stable Elevated blood sugar - No documented history of diabetes - HgbA1c pending DVT prophylaxis - Bilateral SCD/Salty Olson MD Aug 13, 2017 10:20
--- NOTE | 2017-08-13 12:20 | ECHRPT ---
Indication: heart failure CONCLUSIONS Normal left ventricular size. Mild concentric left ventricular hypertrophy. The left ventricular systolic function is normal with an estimated ejection fraction in the range of 60-65%. The left atrial size is moderately dilated. Mild mitral valve regurgitation. Mitral annular calcification is present. Severe aortic valve stenosis. There is mild tricuspid valve regurgitation. The estimated pulmonary arterial pressure is 46.2 mmHg. BP: / HR: Rhythm: MEASUREMENTS (Male / Female) Normal Values Technical Quality:Good 2D ECHO LV Diastolic Diameter PLAX 4.6 cm 4.2 - 5.9 / 3.9 - 5.3 cm LV Systolic Diameter PLAX 3.2 cm IVS Diastolic Thickness 1.2 cm 0.6 - 1.0 / 0.6 - 0.9 cm LVPW Diastolic Thickness 0.8 cm 0.6 - 1.0 / 0.6 - 0.9 cm LV Relative Wall Thickness 0.4 RV Internal Dim ED PLAX 2.1 cm LVOT Diameter 1.9 cm LA Systolic Diameter LX 4.2 cm 3.0 - 4.0 / 2.7 - 3.8 cm DOPPLER AV Peak Velocity 554.0 cm/s AV Peak Gradient 122.8 mmHg AV Mean Gradient 79.0 mmHg AV Velocity Time Integral 148.0 cm LVOT Peak Velocity 95.5 cm/s LVOT Peak Gradient 3.7 mmHg LVOT Velocity Time Integral 24.6 cm AV Area Cont Eq vti 0.5 cm AV Area Cont Eq pk 0.5 cm MV Peak Velocity 178.0 cm/s MV Peak Gradient 12.7 mmHg MV Mean Velocity 89.3 cm/s MV Mean Gradient 4.0 mmHg Mitral E Point Velocity 110.0 cm/s Mitral A Point Velocity 150.0 cm/s Mitral E to A Ratio 0.7 TR Peak Velocity 301.0 cm/s TR Peak Gradient 36.2 mmHg Right Atrial Pressure 10.0 mmHg Pulmonary Artery Systolic Pressu 46.2 mmHg Right Ventricular Systolic Press 46.2 mmHg FINDINGS LEFT VENTRICLE Normal left ventricular size. Mild concentric left ventricular hypertrophy. The left ventricular systolic function is normal with an estimated ejection fraction in the range of 60-65%. RIGHT VENTRICLE Normal right ventricular size and systolic function. LEFT ATRIUM The left atrial size is moderately dilated. RIGHT ATRIUM The right atrial size is normal. ATRIAL SEPTUM Normal atrial septal thickness without atrial level shunting by limited color doppler interrogation. AORTA The aortic root and proximal ascending aorta are normal in size on limited imaging. MITRAL VALVE Mild mitral valve regurgitation. Mitral annular calcification is present. AORTIC VALVE Severe aortic valve stenosis. Aortic valve area is 0.47 cm. Aortic valve mean gradient is 79 mmHg. max gradient 123 mmHg Vmax 554 cm/s TRICUSPID VALVE There is mild tricuspid valve regurgitation. The estimated pulmonary arterial pressure is 46.2 mmHg. PULMONARY VALVE No pulmonary valve regurgitation or stenosis. VESSELS The inferior vena cava is normal in size. PERICARDIUM No pericardial effusion. Daryl Tabares MD, FACC (Electronically Signed) Final Date:13 August 2017 12:19
--- NOTE | 2017-08-13 14:26 | MB ---
cc: ROXI HUTCHINSON M.D. DATE OF CONSULTATION: August 13, 2017. ATTENDING PHYSICIAN Dr. Nguyen. REASON FOR CONSULTATION Hematology is consulted to render opinion regarding patient with chronic ITP and to recommend anticoagulation. HISTORY OF PRESENT ILLNESS The patient is a very pleasant 86-year-old female with history of chronic idiopathic thrombocytopenic purpura, presented to the hospital with complaint of chest pain and associated with shortness of breath. She stated that she woke up from a nap and experienced some left-sided chest pain with shortness of breath. She stated that the episode lasted about 3 hours but at that time she came to the emergency room she stated her chest pain had resolved. She was noted to have elevated troponin. On arrival CBC showed platelet count 63,000. She was started on aspirin. She has easy bruising but denies any bleeding. Denies any dysuria, hematuria, denies any bone pains or chronic joint ache. PAST MEDICAL HISTORY 1. Chronic idiopathic thrombocytopenic purpura. 2. Pulmonary embolism, she was on Coumadin until 2013. 3. Hypertension. 4. Aortic stenosis. 5. Hyperlipidemia. 6. Asthma. 7. Glaucoma. 8. Meningioma. PAST SURGICAL HISTORY 1. IVC filter placement. 2. Appendectomy. 3. Bilateral cataract surgery. 4. Hernia repair. 5. Hysterectomy. 6. Right total knee replacement. 7. Right shoulder surgery. FAMILY HISTORY Noncontributory. SOCIAL HISTORY Denies tobacco use. She says she drinks wine occasionally. ALLERGIES No known drug allergy. CURRENT MEDICATIONS 1. Aspirin. 2. Vitamin D3. 3. Diltiazem. 4. Os-Boo. 5. Losartan. 6. Multivitamin. 7. Lasix. 8. Protonix. 9. Flonase. 10. Latanoprost. 11. Montelukast. 12. Bactrim. 13. Mucinex. 14. Trusopt eyedrops. REVIEW OF SYSTEMS CONSTITUTIONAL: Negative. EYES: Negative. ENT: Negative. CARDIOVASCULAR: As above. RESPIRATORY: As above. GI: Negative. : Negative. MUSCULOSKELETAL: Has chronic joint ache. HEMATOLOGY: As above. ENDOCRINE: Negative. DERMATOLOGY: Negative. PSYCHIATRIC: Negative. NEUROLOGIC: Negative. PHYSICAL EXAMINATION VITAL SIGNS: Temperature 98.1, blood pressure 114/53, O2 saturation 96% on room air. GENERAL: She is alert and oriented x3, in no acute distress. HEENT: Atraumatic, normocephalic. Pupils equal, round and reactive to light. Extraocular muscles intact. No scleral icterus. Oropharynx moist mucosa. No lesion, no thrush. NECK: No thyromegaly. No palpable masses. LYMPHATIC: No palpable cervical, clavicular, axillary, inguinal lymph node. CARDIOVASCULAR: Regular, S1-S2. Ejection murmur noted. LUNGS: Clear to auscultation bilaterally. ABDOMEN: Soft, nontender. I could not palpate liver or spleen. EXTREMITIES: No cyanosis, clubbing. Bilateral lower extremity hyperpigmentation noted. LABORATORY DATA Laboratory data reviewed. ASSESSMENT 1. Chronic idiopathic thrombocytopenic purpura. Her platelet count fluctuated between 30,000-40,000, yesterday when she presented to the hospital her platelet count was 63,000. She has easy bruising but no bleeding, Despite her thrombocytopenia she tolerated Coumadin well from 2006 to 2013. She is currently on baby aspirin and I do not see any contraindication for that. 2. History of bilateral pulmonary embolism. Hypercoagulable workup was negative. She had IVC filter placement. She was on Coumadin from 2006 to 2013. The Coumadin was stopped because of frequent fall. She has no recurrent clot at this time. 3. Asthma with frequent exacerbation. 4. Aortic stenosis, awaiting cardiology evaluation. 5. Meningioma. She has no symptom. PLAN 1. Agree with aspirin. Await cardiology evaluation. 2. Monitor CBC. Thank you Dr. Nguyen for asking me to see this patient. MD TL Sandoval/CHRISTIAN /1:20 PM /2:00 PM KATLIN
--- NOTE | 2017-08-13 14:49 | EKG ---
Date Performed: 08/13/2017 Time Performed: 02:51:42 PTAGE: 86 years EKG: Sinus rhythm Possible left ventricular hypertrophy Extensive ST-T changes may be due to hypertrophy and/or ischem ia Abnormal ECG PREVIOUS TRACING : 08/12/2017 21.52 Compared to prior tracing no significant change DOCTOR: Fior Amin Interpretating Date/Time 08/13/2017 14:47:50
--- NOTE | 2017-08-13 14:59 | EKG ---
Date Performed: 08/12/2017 Time Performed: 21:52:48 PTAGE: 86 years EKG: Sinus rhythm WITH OCCASIONAL SUPRAVENTRICULAR PREMATURE COMPLEXES VOLTAGE CRITERIA FOR LVH NONSPECIFIC ST & T-WAV E ABNORMALITY ABNORMAL ECG PREVIOUS TRACING : 08/12/2017 15.15 Compared to prior tracing no significant change DOCTOR: Fior Amin Interpretating Date/Time 08/13/2017 14:58:48
--- NOTE | 2017-08-13 15:16 | EKG ---
Date Performed: 08/12/2017 Time Performed: 15:15:31 PTAGE: 86 years EKG: Sinus rhythm LEFT VENTRICULAR HYPERTROPHY AND ST-T CHANGE ABNORMAL ECG PREVIOUS TRACING : 05/06/2007 20.16 Compared to prior tracing no significant change DOCTOR: Fior Amin Interpretating Date/Time 08/13/2017 15:16:14
--- NOTE | 2017-08-13 19:32 | MB ---
cc: TEX BELL DO DATE OF CONSULTATION: 08/13/2017 REASON FOR CONSULTATION: Chest pain, elevated troponin. HISTORY OF PRESENT ILLNESS Helene Mulligan is a pleasant 86 year-old female who sees my partner, Dr. Lao in the office, who presented to [facility] emergency room on August 12, 2017 due to chest pain. She states that she was in the assisted living facility [facility] when she woke up from a nap and had left-sided chest pain while still in bed. This was associated with shortness of breath. She states that this lasted for about 3 hours and then she came to the emergency room. She states that for sometime she has been extremely short of breath with walking out to the mailbox. In seeing her, she is currently stable without chest pain or shortness of breath. PAST MEDICAL HISTORY 1. Known severe aortic stenosis. 2. Hypertension 3. Hyperlipidemia 4. Chronic ITP with platelet counts chronically around 30,000. 5. Asthma. 6. Glaucoma 7. History of bilateral PE, status post IVC filter placement. 8. 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 9. Meningioma. PAST SURGICAL HISTORY 1. IVC filter placement due to bilateral PE. 2. Appendectomy. 3. Bilateral cataract surgery. 4. Epigastric hernia repair 5. Hysterectomy 6. Right total knee replacement. 7. Right shoulder replacement. ALLERGIES NO KNOWN DRUG ALLERGIES. MEDICATIONS 1. Bactrim 800/160 mg b.i.d. 2. Albuterol 2 puffs every 6 hours as needed for shortness of breath. 3. Cardizem 300 mg daily. 4. Candesartan 32 milligrams daily. 5. Montelukast 10 mg every night 6. Fluticasone 50 mcg b.i.d. 7. Dorzolamide one drop each eye. 8. Latanoprost one drop each eye every night. FAMILY HISTORY Denies premature coronary artery disease or sudden cardiac within the family. SOCIAL HISTORY The patient denies tobacco abuse. She drinks one to two glasses of wine nightly. Denies drug abuse. 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 REVIEW OF SYSTEMS 14-systems were reviewed including osteopathic, pertinent positives and negatives above otherwise negative. PHYSICAL EXAMINATION Vital signs: Temperature 98.1. Heart rate 73, blood pressure 114/53, respiratory rate 18, pulse ox 96% on room air. In general, the patient appears well in no acute distress, alert awake and oriented x3. HEENT: Extraocular muscles intact. Mucous membranes moist. NECK: Neck is supple. JVD at 45 degrees. No carotid bruits heard bilaterally. Carotid upstrokes brisk in nature. HEART: Heart is regular rate and rhythm. Positive first and second heart sounds with a 3/6 crescendo-decrescendo murmur which is late peaking to the right sternal border. LUNGS: Lungs are relatively clear bilaterally. No wheezes, rales or rhonchi. ABDOMEN: Abdomen is soft, nontender, nondistended. No organomegaly noted. EXTREMITIES: No clubbing or cyanosis, bilateral hyperpigmentation noted. NEUROLOGIC: No focal deficits. Osteopathic, mild lordosis, no kyphoscoliosis or paraspinal tender points. LABORATORY WORK: Hemoglobin 12.3, hematocrit 37.2, platelet count 53. Potassium 3.9, BUN 26, creatinine 1.48, troponin 0.2, increasing to 0.46, decreasing to 0.37. Electrocardiogram (August 13, 2017 at 12:51) sinus rhythm, LVH, nonspecific ST-T wave changes possibly due to LVH versus ischemia. IMPRESSION 1. Chest pain possibly due to coronary insufficiency versus severe aortic stenosis. 2. Elevated troponin due to possible coronary insufficiency versus severe aortic stenosis. 3. Ejection fraction of 60-65%, mild concentric LVH, mild mitral regurgitation, mild tricuspid regurgitation, severe aortic stenosis (peak velocity 554, mean gradient 79, aortic valve area 0.5 cm squared) by echocardiogram (August 13, 2017). 4. Chronic idiopathic thrombocytopenic purpura. 5. History of bilateral PE status post IVC filter placement. 6. Asthma. 7. Meningioma. 8. Acute kidney injury. 9. History of hypertension. RECOMMENDATIONS 1. Ms. Mulligan presented with chest pain and an elevated troponin which could be due to either her severe aortic stenosis or possible coronary artery disease or a combination of the two. 2. I discussed with her consideration for further workup, although my overall concern is her chronic ITP. Her baseline platelet count is around 30,000. It would be difficult with numbers similar to this to be placed on dual antiplatelet therapy with stenting and TAVR versus consideration of open heart surgery which she would have to at least be on aspirin and possibly Coumadin therapy. 3. I discussed this with Ms. Mulligan and she would not like any procedures if possible. Notes going back a few years showing that the patient would not want any procedures done. 4. I will further discuss this with her to make sure that we are on the same page over this. The plan would be to continue to treat her medically as best as possible but there is no medical treatment for her aortic stenosis other than blood pressure control. 5. Further recommendations will be made based on the hospital course. Thank you for allowing me to see Helene Mulligan. If there are any questions please do not hesitate to call. Tex Bell DO VGMike/MALINI /4:46 PM /6:31 PM
[2017-08-13] MEDS: MONTELUKAST SODIUM 10 MG TAB PO SCH (20:18)
[2017-08-13] MEDS: LATANOPROST 0.005% OPHT SOLN 2.5 ML BTL EACH EYE SCH (20:19)
[2017-08-14] VITALS (8 sets, daily range): BP systolic 103–121; BP diastolic 54–57; PULSE 62–91; RESP 18–22; TEMP 97.5–98; O2SAT 95–97
[2017-08-14] MEDS: guaiFENesin E.R. 600 MG TAB PO SCH ×2 (08:39→21:55)
[2017-08-14] MEDS: PANTOPRAZOLE SOD 40 MG DELAYED RELEASE TAB PO SCH (08:39)
[2017-08-14] MEDS: LOSARTAN 50 MG TAB PO SCH (08:39)
[2017-08-14] MEDS: DILTIAZEM-CD 300 MG CAP ER PO SCH (08:39)
[2017-08-14] MEDS: FUROSEMIDE 40 MG TAB PO SCH (08:39)
[2017-08-14] MEDS: ASPIRIN EC 81 MG TABEC PO SCH (08:39)
[2017-08-14] MEDS: MULTIVITAMIN TAB PO SCH (08:39)
[2017-08-14] MEDS: SULFAMETHOXAZOLE-TRIMETHOPRIM DS 800-160 MG TAB PO SCH ×2 (08:39→21:55)
[2017-08-14] MEDS: CALCIUM/VITAMIN D 250 MG/125 U TAB PO SCH (08:40)
[2017-08-14] MEDS: SODIUM CHLORIDE 0.9% FLUSH 10 ML FLUSH IV FLUSH SCH ×2 (08:40→21:55)
[2017-08-14] MEDS: CHOLECALCIFEROL (VIT D3) 1000 UNIT TAB PO SCH (08:40)
[2017-08-14] MEDS: FLUTICASONE PROPIONATE 50 MCG/ACT 16 GM NASAL SPRAY EACH NARE SCH ×2 (08:41→21:00)
[2017-08-14] MEDS: LATANOPROST 0.005% OPHT SOLN 2.5 ML BTL EACH EYE SCH (08:41)
[2017-08-14] MEDS: DORZOLAMIDE 2% OPTH SOLN 200 DROP/10 ML BTLO EACH EYE SCH ×2 (08:41→21:00)
--- NOTE | 2017-08-14 10:00 | HHI.PR ---
Subjective Remarks Follow-up atypical chest pain/angina 08/13/17-patient seen and examined, denies anymore chest pain since admission. No other issues. Awaiting for cardiology consult 08/14/17-patient seen and examined, she denies any chest pain or shortness of breath. Cardiology recommended medical management Objective Vitals Vital Signs Date Time Temp Pulse Resp B/P (MAP) Pulse Ox O2 Delivery O2 Flow Rate FiO2 08/14/17 08:00 97.7 91 22 105/57 (73) 95 08/14/17 04:00 97.7 76 20 114/56 (75) 95 08/14/17 00:00 98.0 79 20 103/57 (72) 95 08/13/17 21:16 97 08/13/17 20:15 Room Air 08/13/17 20:15 76 08/13/17 20:00 98.5 78 20 96/47 (63) 95 08/13/17 16:00 97.6 71 20 107/52 (70) 96 08/13/17 12:00 98.1 73 18 114/53 (73) 96 I/O 08/13/17 08/13/17 08/13/17 08/14/17 08/14/17 08/14/17 07:00 15:00 23:00 07:00 15:00 23:00 Intake Total 1420 ml 220 ml Output Total 900 ml 700 ml 300 ml Balance -900 ml 720 ml -80 ml Intake Oral 1420 ml 220 ml Output Urine Total 900 ml 700 ml 300 ml # Voids 1 # Bowel Movements 0 0 Result Diagram: 08/13/17 0320 08/13/17 0320 Imaging Last Impressions Chest X-Ray 08/12/17 1502 Signed Impressions: Service Date/Time: Saturday, August 12, 2017 15:12 - CONCLUSION: 1. Cardiomegaly with small left basilar effusion and atelectasis. Alex Mondragon MD Objective Remarks GENERAL: NAD SKIN: Warm and dry. HEAD: Normocephalic. EYES: No scleral icterus. No injection or drainage. NECK: Supple, trachea midline. No JVD or lymphadenopathy. CARDIOVASCULAR: Regular rate and rhythm without murmurs, gallops, or rubs. RESPIRATORY: Breath sounds equal bilaterally. No accessory muscle use. GASTROINTESTINAL: Abdomen soft, non-tender, nondistended. MUSCULOSKELETAL: No cyanosis, or edema. BACK: Nontender without obvious deformity. No CVA tenderness. Procedures none A/P Problem List: (1) Pleural effusion ICD Code: J90 - Pleural effusion, not elsewhere classified Status: Acute (2) Non-STEMI (non-ST elevated myocardial infarction) ICD Code: I21.4 - Non-ST elevation (NSTEMI) myocardial infarction Status: Acute Assessment and Plan 86-year-old female with NSTEMI - Appreciate input from cardiology who recommended continue medical management - ASA daily - Morphine IV prn chest pain - unable to start on Heparin drip due to hx of chronic ITP - 2-D echo with EF 60-65% Severe aortic stenosis Appreciate input from cardiology Patient does not want any procedure Continue with aspirin, currently patient not a candidate for oral anticoagulation CHF, acute - CXR personally reviewed showing cardiomegaly with small left basilar effusion and atelectasis - BNP 311 - Lasix IV 40 mg 1 - strict I&Os - 2D echocardiogram with EF 60-65% SABIHA - Creatinine 1.53, GFR 32 - Baseline creatinine appears to be around 0.9 - Avoid nephrotoxic agents Chronic ITP - Patient follows with Dr. Covington as outpatient with a chronic platelet level of 30,000. Currently plt count 63,000. - Appreciate input from hematology/Dr. Covington Hypertension - BP soft - Currently on diltiazem 300 mg by mouth daily, candesartan 32mg daily - Monitor BP Asthma, not in acute exacerbation - Albuterol inhaler when necessary - Continue montelukast 10mg daily Glaucoma - Continue home eyedrops Hx of PE previously on Coumadin s/p IVC filter placement - stable Elevated blood sugar - No documented history of diabetes - HgbA1c pending DVT prophylaxis - Bilateral SCD/Salty Olson MD Aug 14, 2017 10:00
[2017-08-14] MEDS ORDERED: ASPI-99 PO (10:04)
--- NOTE | 2017-08-14 10:07 | HHI.DS ---
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 Covington, aortic stenosis, history of PE previously on Coumadin status post IVC filter placement, dyslipidemia, asthma and glaucoma who presents to [facility] ED with complaints of chest pain and shortness of breath x 1 day. Patient states that she was at the assisted living facility [facility] earlier today when she woke up from a nap and experienced left- sided chest pain while still in bed with associated shortness of breath. Patient denies any radicular complaints. Patient was given 162mg aspirin as well as oxygen by EMS with improvement in her symptoms. At present, patient denies any complaints of chest pain but does report some mild dyspnea. She states she's only had lower extremity swelling since she's been in our ED today. Patient was at home up until last Friday when she was admitted to [facility] due to her normal caregiver being out of town. In the ED, patient was noted to have elevated troponin 0.20. EKG was unremarkable. Patient's BNP is slightly elevated at 311. Chest x-ray revealed a small left pleural effusion. She was also noted to have elevated creatinine 1.53. Patient has a plant cytologist who she thinks is Dr. Lao. CBC/BMP: 08/13/17 0320 08/13/17 0320 Significant Findings Laboratory Tests Test 08/12/17 15:25 08/12/17 17:40 08/12/17 21:19 08/13/17 03:20 Platelet Count 63 TH/MM3 (150-450) 53 TH/MM3 (150-450) Mean Platelet Volume 12.7 FL (7.0-11.0) 13.1 FL (7.0-11.0) Monocytes (%) (Auto) 10.8 % (0.0-8.0) 15.0 % (0.0-8.0) Platelet Estimate LOW (NORMAL) LOW (NORMAL) Platelet Morphology Comment GIANT (NORMAL) ENLARGED (NORMAL) Ovalocytes 1+ (NORMAL) 1+ (NORMAL) Prothrombin Time 11.7 SEC (9.8-11.6) Activated Partial Thromboplast Time 24.0 SEC (24.3-30.1) Blood Urea Nitrogen 25 MG/DL (7-18) 26 MG/DL (7-18) Creatinine 1.53 MG/DL (0.50-1.00) 1.48 MG/DL (0.50-1.00) Random Glucose 121 MG/DL (74-106) Chloride Level 108 MEQ/L (98-107) 108 MEQ/L (98-107) Estimat Glomerular Filtration Rate 32 ML/MIN (>89) 33 ML/MIN (>89) Troponin I 0.20 NG/ML (0.02-0.05) 0.46 NG/ML (0.02-0.05) 0.37 NG/ML (0.02-0.05) B-Type Natriuretic Peptide 311 PG/ML (0-100) Urine Turbidity HAZY (CLEAR) Urine WBC 10 /hpf (0-5) Urine Bacteria RARE /hpf (NONE) Monocytes # (Auto) 1.0 TH/MM3 (0-0.9) Acanthocytes OCC (NORMAL) Total Protein 6.1 GM/DL (6.4-8.2) Albumin 3.3 GM/DL (3.4-5.0) Calcium Level 8.3 MG/DL (8.5-10.1) HDL Cholesterol 78.2 MG/DL (40.0-60.0) Imaging Last Impressions Chest X-Ray 08/12/17 1502 Signed Impressions: Service Date/Time: Saturday, August 12, 2017 15:12 - CONCLUSION: 1. Cardiomegaly with small left basilar effusion and atelectasis. Alex Mondragon MD PE at Discharge GENERAL: NAD SKIN: Warm and dry. HEAD: Normocephalic. EYES: No scleral icterus. No injection or drainage. NECK: Supple, trachea midline. No JVD or lymphadenopathy. CARDIOVASCULAR: Regular rate and rhythm without murmurs, gallops, or rubs. RESPIRATORY: Breath sounds equal bilaterally. No accessory muscle use. GASTROINTESTINAL: Abdomen soft, non-tender, nondistended. MUSCULOSKELETAL: No cyanosis, or edema. BACK: Nontender without obvious deformity. No CVA tenderness. Hospital Course Patient admitted secondary to non-ST elevation PR for which cardiology was consulted however she was treated medically secondary to history of chronic ITP. Hematology was also consulted regarding history of ITP and advised on continue baby aspirin. She was continued on her treatment for other chronic medical conditions. Patient discharged in stable condition. Pt Condition on Discharge: Stable Discharge Disposition: Discharge Home Discharge Time: > 30 minutes Discharge Instructions DIET: Follow Instructions for: Heart Healthy Diet Activities you can perform: Regular-No Restrictions Follow up Referrals: Cardiology Oncology PCP Follow-up - 1 Week New Medications: Aspirin DR (Adult Aspirin EC Low Strength) 81 Mg Tabec 81 MG PO DAILY for Prevent Blood Clot, #30 TAB Continued Medications: Albuterol 18 GM Inh (Ventolin Hfa 18 GM Inh) 90 Mcg/Act Aer 2 PUFF INH Q6H PRN for SHORTNESS OF BREATH, #1 INHALER 0 Refills Calcium Carbonate-Cholecalciferol (Calcium 500+D) 500-400 Mg-Unit Tab 1 TAB PO DAILY, TAB Candesartan (Candesartan) 32 Mg Tab 1 TAB PO DAILY for Blood Pressure Management, #30 TAB 0 Refills Cholecalciferol (Vitamin D3) 2,000 Unit Cap 1 CAP PO DAILY for Nutritional Supplement, #1 BOTTLE 0 Refills Diltiazem ER 24 HR (Cartia Xt) 300 Mg Caper 1 CAP PO DAILY, #30 CAP 0 Refills Dorzolamide Opth Drops (Dorzolamide Opth Drops) 2% Soln 1 DROP EACH EYE BID for Glaucoma, #1 BOTTLE 6 Refills Fluticasone Nasal Avinger (Fluticasone Nasal Avinger) 50 Mcg/Act Naspr 50 MCG EACH NARE BID for Allergy Management, #1 BOTTLE 0 Refills 50 mcg/spray Latanoprost Opth Drops (Latanoprost Opth Drops) 0.005% Drops 1 DROP EACH EYE HS for Glaucoma, #2.5 ML 6 Refills Refrigerate until opened. Montelukast (Montelukast) 10 Mg Tab 1 TAB PO HS, #30 TAB 0 Refills Multivitamin/Iron/Folic Acid (Centrum Women Tablet) 1 Each Tablet 1 TAB PO DAILY Sulfamethoxazole-Trimethoprim (Bactrim DS) 800-160 Mg Tab 1 TAB PO BID for Infection, TAB 0 Refills Salty Nguyen MD Aug 14, 2017 10:06
--- NOTE | 2017-08-14 10:35 | HHI.PR ---
Addendum to Inpatient Note Addendum Reason: Additional Documentation Additional Information Case discussed with Cardiology this AM Will keep patient for 1 more day discharge 08/15/17 Salty Nguyen MD Aug 14, 2017 10:35
[2017-08-14 12:28] LABS: AUTOMATED NEUTROPHIL # 5.4 TH/MM3 (1.8-7.7); BASOPHIL % 0.3 % (0.0-2.0); EOSINOPHIL # 0.2 TH/MM3 (0-0.4); HEMATOCRIT 40.7 % (35.0-46.0); LYMPH % 18.4 % (9.0-44.0); LYMPHOCYTE # 1.5 TH/MM3 (1.0-4.8); MEAN CORPUSCULAR HEMOGLOBIN 29.6 PG (27.0-34.0); MEAN CORPUSCULAR HGB CONC 32.9 % (32.0-36.0); MONO % 12.4 % (0.0-8.0); NEUT % 66.9 % (16.0-70.0); PLATELET COUNT 64 TH/MM3 (150-450); RED BLOOD COUNT 4.52 MIL/MM3 (4.00-5.30); RED CELL DISTRIBUTION WIDTH 16.1 % (11.6-17.2)
[2017-08-14 12:37] LABS: HEMO FLAGS AUTO DIFF
--- NOTE | 2017-08-14 13:03 | PD.ONC.PN ---
Subjective Subjective Remarks Afebrile Patient looking forward to going home today No bleeding Objective Data Date Time Temp Pulse Resp B/P (MAP) Pulse Ox O2 Delivery O2 Flow Rate FiO2 08/14/17 08:00 97.7 91 22 105/57 (73) 95 08/14/17 08:00 Room Air 08/14/17 04:00 97.7 76 20 114/56 (75) 95 08/14/17 00:00 98.0 79 20 103/57 (72) 95 08/13/17 21:16 97 08/13/17 20:15 Room Air 08/13/17 20:15 76 08/13/17 20:00 98.5 78 20 96/47 (63) 95 08/13/17 16:00 97.6 71 20 107/52 (70) 96 08/14/17 08/14/17 08/14/17 07:00 15:00 23:00 Intake Total 220 ml Output Total 300 ml Balance -80 ml Result Diagram: 08/14/17 1202 08/13/17 0320 Laboratory Results Laboratory Tests Test 08/14/17 12:02 08/14/17 12:12 White Blood Count 8.0 TH/MM3 Red Blood Count 4.52 MIL/MM3 Hemoglobin 13.4 GM/DL Hematocrit 40.7 % Mean Corpuscular Volume 90.0 FL Mean Corpuscular Hemoglobin 29.6 PG Mean Corpuscular Hemoglobin Concent 32.9 % Red Cell Distribution Width 16.1 % Platelet Count 64 TH/MM3 Mean Platelet Volume 13.6 FL Neutrophils (%) (Auto) 66.9 % Lymphocytes (%) (Auto) 18.4 % Monocytes (%) (Auto) 12.4 % Eosinophils (%) (Auto) 2.0 % Basophils (%) (Auto) 0.3 % Neutrophils # (Auto) 5.4 TH/MM3 Lymphocytes # (Auto) 1.5 TH/MM3 Monocytes # (Auto) 1.0 TH/MM3 Eosinophils # (Auto) 0.2 TH/MM3 Basophils # (Auto) 0.0 TH/MM3 CBC Comment AUTO DIFF Culture Results Microbiology Date/Time Source Procedure Growth Status 08/12/17 17:40 Urine Clean Catch Urine Culture - Final NO GROWTH IN 48 HOURS. Complete Administered Medications Medications (Trade) Dose Ordered Sig/Anamika Route PRN Reason Start Time Stop Time Status Last Admin Dose Admin Sodium Chloride (NS Flush) 2 ml BID IV FLUSH 08/12/17 21:00 08/14/17 08:40 Aspirin (Ecotrin Ec) 81 mg DAILY PO 08/13/17 09:00 08/14/17 08:39 Cholecalciferol (Vitamin D3) 2,000 units DAILY PO 08/13/17 09:00 08/14/17 08:40 Diltiazem HCl (Cardizem Cd) 300 mg DAILY PO 08/13/17 09:00 08/14/17 08:39 Dorzolamide HCl (Trusopt 2% Opth Soln) 1 drop BID EACH EYE 08/12/17 21:00 08/14/17 08:41 Fluticasone Propionate (Flonase Luis Spr) 1 spray BID EACH NARE 08/12/17 21:00 08/14/17 08:41 Latanoprost (Xalatan 0.005% Opth Soln) 1 drop HS EACH EYE 08/12/17 21:00 08/14/17 08:41 Montelukast Sodium (Singulair) 10 mg HS PO 08/12/17 21:00 08/13/17 20:18 Trimethoprim/ Sulfamethoxazole (Bactrim Ds 800-160 Mg) 1 tab BID PO 08/12/17 21:00 08/14/17 08:39 Calcium/Vitamin D (Oscal-D 250-125) 500 mg DAILY PO 08/13/17 09:00 08/14/17 08:40 Losartan Potassium (Cozaar) 100 mg DAILY PO 08/13/17 09:00 08/14/17 08:39 Multivitamins (Theragran) 1 tab DAILY PO 08/13/17 09:00 08/14/17 08:39 Furosemide (Lasix) 40 mg DAILY PO 08/13/17 09:00 08/14/17 08:39 Pantoprazole Sodium (Protonix) 40 mg DAILY PO 08/13/17 09:00 08/14/17 08:39 Guaifenesin (Mucinex Er) 600 mg BID PO 08/12/17 21:00 08/14/17 08:39 Objective Remarks GENERAL: Well appearing elderly female sitting up in chair at bedside in no acute distress SKIN: Warm and dry. HEAD: Normocephalic. EYES: No injection or drainage. NECK: Supple, trachea midline. CARDIOVASCULAR: Regular rate and rhythm without murmurs. RESPIRATORY: Breath sounds equal bilaterally. No accessory muscle use. GASTROINTESTINAL: Abdomen soft, non-tender, nondistended. EXTREMITIES: No cyanosis. MUSCULOSKELETAL: Adequate muscle tone. NEUROLOGICAL: No obvious focal deficit. Awake, alert, and oriented x3. Assessment/Plan Problem List: (1) Chronic ITP (idiopathic thrombocytopenia) ICD Codes: D69.3 - Immune thrombocytopenic purpura Plan: -- Patient has history of chronic idiopathic, cytopenic purpura -- Okay for aspirin -- Platelet count fluctuates between 30-40,000 (2) Non-STEMI (non-ST elevated myocardial infarction) ICD Codes: I21.4 - Non-ST elevation (NSTEMI) myocardial infarction Status: Acute Plan: -- Cardiology following -- Patient was previously on Coumadin for many years for a history of pulmonary embolism Assessment 86-year-old female admitted for cardiac workup; hematology consulted for chronic ITP and recommendations on anticoagulation Plan 1. Agree with 81 mg aspirin daily 2. Monitor CBC 3. Okay for discharge from hematology standpoint 4. Follow up in clinic Attending Statement The exam, history, and the medical decision-making described in the above note were completed with the assistance of the mid-level provider. I reviewed and agree with the findings presented. I attest that I had a [id number] encounter with the patient on the same day, and personally performed and documented my assessment and findings in the medical record. No CP/SOB. No bleeding. Platelet stable 64k. Continue ASA. Monitor platelet. Alivia Espinosa Aug 14, 2017 13:03 Silvano Covington MD Aug 14, 2017 13:36
[2017-08-14 13:09] LABS: OVALOCYTES 1+ (NORMAL); PLATELET ESTIMATE SMEAR LOW (NORMAL); PLATELET MORPHOLOGY ENLARGED (NORMAL); SCAN/DIFF AUTO DIFF CONFIRMED
[2017-08-14 13:16] LABS: BICARBONATE 24.6 MEQ/L (21.0-32.0); POTASSIUM 3.9 MEQ/L (3.5-5.1)
--- NOTE | 2017-08-14 17:18 | PD.CARD.PN ---
Subjective Subjective Remarks No events overnight Doing well today, less SOB Objective Medications Current Medications Medications (Trade) Dose Ordered Sig/Anamika Route Start Time Stop Time Status Last Admin (NS Flush) 2 ml UNSCH PRN IV FLUSH 08/12/17 17:15 (NS Flush) 2 ml BID IV FLUSH 08/12/17 21:00 08/14/17 08:40 (Tylenol) 650 mg Q4H PRN PO 08/12/17 17:15 (Zofran Inj) 4 mg Q6H PRN IVP 08/12/17 17:15 (Reglan Inj) 5 mg Q6H PRN IV PUSH 08/12/17 17:15 (Compazine Supp) 25 mg Q12H PRN RECTAL 08/12/17 17:15 (Narcan Inj) 0.4 mg UNSCH PRN IV PUSH 08/12/17 17:15 (Milk Of Magnesia Liq) 30 ml Q12H PRN PO 08/12/17 17:15 (Ecotrin Ec) 81 mg DAILY PO 08/13/17 09:00 08/14/17 08:39 (Morphine Inj) 2 mg Q3H PRN IV PUSH 08/12/17 17:30 (Duoneb Neb) 1 ampule Q4HR NEB PRN NEB 08/12/17 17:30 (Proair Hfa Inh) 2 puff Q6H PRN INH 08/12/17 17:45 (Vitamin D3) 2,000 units DAILY PO 08/13/17 09:00 08/14/17 08:40 (Cardizem Cd) 300 mg DAILY PO 08/13/17 09:00 08/14/17 08:39 (Trusopt 2% Opth Soln) 1 drop BID EACH EYE 08/12/17 21:00 08/14/17 08:41 (Flonase Luis Spr) 1 spray BID EACH NARE 08/12/17 21:00 08/14/17 08:41 (Xalatan 0.005% Opth Soln) 1 drop HS EACH EYE 08/12/17 21:00 08/14/17 08:41 (Singulair) 10 mg HS PO 08/12/17 21:00 08/13/17 20:18 (Bactrim Ds 800-160 Mg) 1 tab BID PO 08/12/17 21:00 08/14/17 08:39 (Oscal-D 250-125) 500 mg DAILY PO 08/13/17 09:00 08/14/17 08:40 (Cozaar) 100 mg DAILY PO 08/13/17 09:00 08/14/17 08:39 (Theragran) 1 tab DAILY PO 08/13/17 09:00 08/14/17 08:39 (Lasix) 40 mg DAILY PO 08/13/17 09:00 08/14/17 08:39 (Nitrolingual Sl [place]) 1 spray Q5M PRN SL 08/12/17 17:45 (Protonix) 40 mg DAILY PO 08/13/17 09:00 08/14/17 08:39 (Mucinex Er) 600 mg BID PO 08/12/17 21:00 08/14/17 08:39 Vital Signs / I&O Vital Signs Date Time Temp Pulse Resp B/P (MAP) Pulse Ox O2 Delivery O2 Flow Rate FiO2 08/14/17 12:00 97.5 91 20 108/54 (72) 96 08/14/17 08:07 89 08/14/17 08:00 97.7 91 22 105/57 (73) 95 08/14/17 08:00 Room Air 08/14/17 04:00 97.7 76 20 114/56 (75) 95 08/14/17 00:00 98.0 79 20 103/57 (72) 95 08/13/17 21:16 97 08/13/17 20:15 Room Air 08/13/17 20:15 76 08/13/17 20:00 98.5 78 20 96/47 (63) 95 I/O 08/13/17 08/13/17 08/13/17 08/14/17 08/14/17 08/14/17 07:00 15:00 23:00 07:00 15:00 23:00 Intake Total 1420 ml 220 ml Output Total 900 ml 700 ml 300 ml Balance -900 ml 720 ml -80 ml Intake Oral 1420 ml 220 ml Output Urine Total 900 ml 700 ml 300 ml # Voids 1 # Bowel Movements 0 0 Physical Exam GENERAL: NAD, AAOx3 SKIN: Warm and dry. HEAD: Atraumatic. Normocephalic. EYES: Pupils equal and round. No scleral icterus. No injection or drainage. ENT: No nasal bleeding or discharge. Mucous membranes pink and moist. NECK: Trachea midline. No JVD. CARDIOVASCULAR: Regular rate and rhythm. 3/6 crescendo-decrescendo murmur to RSB RESPIRATORY: No accessory muscle use. Clear to auscultation. Breath sounds equal bilaterally. GASTROINTESTINAL: Abdomen soft, non-tender, nondistended. Hepatic and splenic margins not palpable. MUSCULOSKELETAL: Extremities without clubbing, cyanosis. Bilateral venous stasis changes. No obvious deformities. NEUROLOGICAL: Awake and alert. No obvious cranial nerve deficits. Motor grossly within normal limits. Five out of 5 muscle strength in the arms and legs. Normal speech. PSYCHIATRIC: Appropriate mood and affect; insight and judgment normal. Laboratory Laboratory Tests Test 08/14/17 12:02 08/14/17 12:12 White Blood Count 8.0 TH/MM3 Red Blood Count 4.52 MIL/MM3 Hemoglobin 13.4 GM/DL Hematocrit 40.7 % Mean Corpuscular Volume 90.0 FL Mean Corpuscular Hemoglobin 29.6 PG Mean Corpuscular Hemoglobin Concent 32.9 % Red Cell Distribution Width 16.1 % Platelet Count 64 TH/MM3 Mean Platelet Volume 13.6 FL Neutrophils (%) (Auto) 66.9 % Lymphocytes (%) (Auto) 18.4 % Monocytes (%) (Auto) 12.4 % Eosinophils (%) (Auto) 2.0 % Basophils (%) (Auto) 0.3 % Neutrophils # (Auto) 5.4 TH/MM3 Lymphocytes # (Auto) 1.5 TH/MM3 Monocytes # (Auto) 1.0 TH/MM3 Eosinophils # (Auto) 0.2 TH/MM3 Basophils # (Auto) 0.0 TH/MM3 CBC Comment AUTO DIFF Differential Comment AUTO DIFF CONFIRMED Platelet Estimate LOW Platelet Morphology Comment ENLARGED Ovalocytes 1+ Blood Urea Nitrogen 28 MG/DL Creatinine 1.43 MG/DL Random Glucose 102 MG/DL Calcium Level 9.2 MG/DL Sodium Level 136 MEQ/L Potassium Level 3.9 MEQ/L Chloride Level 102 MEQ/L Carbon Dioxide Level 24.6 MEQ/L Anion Gap 9 MEQ/L Estimat Glomerular Filtration Rate 35 ML/MIN Assessment and Plan Problem List: (1) Aortic stenosis, severe ICD Codes: I35.0 - Nonrheumatic aortic (valve) stenosis (2) Elevated troponin I level ICD Codes: R74.8 - Abnormal levels of other serum enzymes (3) Pleural effusion ICD Codes: J90 - Pleural effusion, not elsewhere classified Status: Acute (4) Meningioma ICD Codes: D32.9 - Benign neoplasm of meninges, unspecified Status: Acute Assessment and Plan 1) Discussed with the patient her options for elevated troponin and severe aortic stenosis She would like to continue medical management, not ready to decide one way or another on what she should have done She would like to further discuss this with her niece who is currently out of town, as well as Dr. Lao 2) ITP with platelets around 60k, previously mostly in the 30s 3) Con't ASA 4) Watch overnight, if stable then discharge in the morning, but overall looks well 5) Elevated troponin most likely due to severe aortic stenosis, but also possible CAD In discussion with her, overall most likely would be a TAVR candidate, concern would be placing on ASA/Plavix post-procedure intermediate Tex Delgadillo DO Aug 14, 2017 17:18
[2017-08-14] MEDS: MONTELUKAST SODIUM 10 MG TAB PO SCH (21:00)
[2017-08-15] VITALS: BP 96/51; PULSE 73; RESP 18; TEMP 98.4; O2SAT 97
[2017-08-15 04:00] VITALS: BP 96/50; PULSE 70; RESP 18; TEMP 98.5; O2SAT 96
[2017-08-15 08:00] VITALS: BP 101/56; PULSE 82; RESP 22; TEMP 97.4; O2SAT 96
[2017-08-15] MEDS: PANTOPRAZOLE SOD 40 MG DELAYED RELEASE TAB PO SCH (09:29)
[2017-08-15] MEDS: guaiFENesin E.R. 600 MG TAB PO SCH (09:29)
[2017-08-15] MEDS: SULFAMETHOXAZOLE-TRIMETHOPRIM DS 800-160 MG TAB PO SCH (09:29)
[2017-08-15] MEDS: CHOLECALCIFEROL (VIT D3) 1000 UNIT TAB PO SCH (09:30)
[2017-08-15] MEDS: CALCIUM/VITAMIN D 250 MG/125 U TAB PO SCH (09:30)
[2017-08-15] MEDS: ASPIRIN EC 81 MG TABEC PO SCH (09:30)
[2017-08-15] MEDS: FUROSEMIDE 40 MG TAB PO SCH (09:30)
[2017-08-15] MEDS: SODIUM CHLORIDE 0.9% FLUSH 10 ML FLUSH IV FLUSH SCH (09:30)
[2017-08-15] MEDS: MULTIVITAMIN TAB PO SCH (09:30)
[2017-08-15] MEDS: DORZOLAMIDE 2% OPTH SOLN 200 DROP/10 ML BTLO EACH EYE SCH (09:32)
[2017-08-15] MEDS: FLUTICASONE PROPIONATE 50 MCG/ACT 16 GM NASAL SPRAY EACH NARE SCH (09:32)
--- NOTE | 2017-08-15 10:20 | HHI.PR ---
Subjective Remarks Follow-up atypical chest pain/angina 08/13/17-patient seen and examined, denies anymore chest pain since admission. No other issues. Awaiting for cardiology consult 08/14/17-patient seen and examined, she denies any chest pain or shortness of breath. Cardiology recommended medical management 08/15/17-patient seen and examined, reports shortness of breath however states this is not new for her. Objective Vitals Vital Signs Date Time Temp Pulse Resp B/P (MAP) Pulse Ox O2 Delivery O2 Flow Rate FiO2 08/15/17 08:00 97.4 82 22 101/56 (71) 96 08/15/17 04:00 98.5 70 18 96/50 (65) 96 08/15/17 00:00 98.4 73 18 96/51 (66) 97 08/14/17 20:00 97.7 63 18 113/54 (73) 97 08/14/17 19:45 62 08/14/17 19:45 Room Air 08/14/17 16:00 97.6 80 22 121/54 (76) 96 08/14/17 12:00 97.5 91 20 108/54 (72) 96 I/O 08/14/17 08/14/17 08/14/17 08/15/17 08/15/17 08/15/17 07:00 15:00 23:00 07:00 15:00 23:00 Intake Total 220 ml 720 ml 480 ml Output Total 300 ml Balance -80 ml 720 ml 480 ml Intake Oral 220 ml 720 ml 480 ml Output Urine Total 300 ml # Voids 4 3 # Bowel Movements 0 1 1 Result Diagram: 08/14/17 1202 08/14/17 1212 Objective Remarks GENERAL: NAD SKIN: Warm and dry. HEAD: Normocephalic. EYES: No scleral icterus. No injection or drainage. NECK: Supple, trachea midline. No JVD or lymphadenopathy. CARDIOVASCULAR: Regular rate and rhythm without murmurs, gallops, or rubs. RESPIRATORY: Breath sounds equal bilaterally. No accessory muscle use. GASTROINTESTINAL: Abdomen soft, non-tender, nondistended. MUSCULOSKELETAL: No cyanosis, or edema. BACK: Nontender without obvious deformity. No CVA tenderness. Procedures none A/P Problem List: (1) Pleural effusion ICD Code: J90 - Pleural effusion, not elsewhere classified Status: Acute (2) Non-STEMI (non-ST elevated myocardial infarction) ICD Code: I21.4 - Non-ST elevation (NSTEMI) myocardial infarction Status: Acute Assessment and Plan 86-year-old female with NSTEMI - Appreciate input from cardiology who recommended continue medical management - ASA daily - Morphine IV prn chest pain - unable to start on Heparin drip due to hx of chronic ITP - 2-D echo with EF 60-65% Severe aortic stenosis Appreciate input from cardiology Patient does not want any procedure Continue with aspirin, currently patient not a candidate for oral anticoagulation CHF, acute - CXR personally reviewed showing cardiomegaly with small left basilar effusion and atelectasis - BNP 311 - Lasix IV 40 mg 1 - strict I&Os - 2D echocardiogram with EF 60-65% SABIHA - Creatinine 1.53, GFR 32 - Baseline creatinine appears to be around 0.9 - Avoid nephrotoxic agents Chronic ITP - Patient follows with Dr. Covington as outpatient with a chronic platelet level of 30,000. - Appreciate input from hematology/Dr. Covington Hypertension - BP soft - Currently on diltiazem 300 mg by mouth daily, candesartan 32mg daily - Monitor BP Asthma, not in acute exacerbation - Albuterol inhaler when necessary - Continue montelukast 10mg daily Glaucoma - Continue home eyedrops Hx of PE previously on Coumadin s/p IVC filter placement - stable Elevated blood sugar - No documented history of diabetes - HgbA1c 5.8 DVT prophylaxis - Bilateral SCD/Salty Olson MD Aug 15, 2017 10:20
--- NOTE | 2017-08-15 10:21 | PD.ONC.PN ---
Subjective Subjective Remarks Afebrile overnight. Patient resting in room in nad. She is hoping to go home soon. Objective Data Date Time Temp Pulse Resp B/P (MAP) Pulse Ox O2 Delivery O2 Flow Rate FiO2 08/15/17 08:00 97.4 82 22 101/56 (71) 96 08/15/17 04:00 98.5 70 18 96/50 (65) 96 08/15/17 00:00 98.4 73 18 96/51 (66) 97 08/14/17 20:00 97.7 63 18 113/54 (73) 97 08/14/17 19:45 62 08/14/17 19:45 Room Air 08/14/17 16:00 97.6 80 22 121/54 (76) 96 08/14/17 12:00 97.5 91 20 108/54 (72) 96 08/15/17 08/15/17 08/15/17 07:00 15:00 23:00 Intake Total 480 ml Balance 480 ml Result Diagram: 08/14/17 1202 08/14/17 1212 Laboratory Results Laboratory Tests Test 08/14/17 12:02 08/14/17 12:12 White Blood Count 8.0 TH/MM3 Red Blood Count 4.52 MIL/MM3 Hemoglobin 13.4 GM/DL Hematocrit 40.7 % Mean Corpuscular Volume 90.0 FL Mean Corpuscular Hemoglobin 29.6 PG Mean Corpuscular Hemoglobin Concent 32.9 % Red Cell Distribution Width 16.1 % Platelet Count 64 TH/MM3 Mean Platelet Volume 13.6 FL Neutrophils (%) (Auto) 66.9 % Lymphocytes (%) (Auto) 18.4 % Monocytes (%) (Auto) 12.4 % Eosinophils (%) (Auto) 2.0 % Basophils (%) (Auto) 0.3 % Neutrophils # (Auto) 5.4 TH/MM3 Lymphocytes # (Auto) 1.5 TH/MM3 Monocytes # (Auto) 1.0 TH/MM3 Eosinophils # (Auto) 0.2 TH/MM3 Basophils # (Auto) 0.0 TH/MM3 CBC Comment AUTO DIFF Differential Comment AUTO DIFF CONFIRMED Platelet Estimate LOW Platelet Morphology Comment ENLARGED Ovalocytes 1+ Blood Urea Nitrogen 28 MG/DL Creatinine 1.43 MG/DL Random Glucose 102 MG/DL Calcium Level 9.2 MG/DL Sodium Level 136 MEQ/L Potassium Level 3.9 MEQ/L Chloride Level 102 MEQ/L Carbon Dioxide Level 24.6 MEQ/L Anion Gap 9 MEQ/L Estimat Glomerular Filtration Rate 35 ML/MIN Culture Results Microbiology Date/Time Source Procedure Growth Status 08/12/17 17:40 Urine Clean Catch Urine Culture - Final NO GROWTH IN 48 HOURS. Complete Administered Medications Medications (Trade) Dose Ordered Sig/Anamika Route PRN Reason Start Time Stop Time Status Last Admin Dose Admin Sodium Chloride (NS Flush) 2 ml BID IV FLUSH 08/12/17 21:00 08/15/17 09:30 Aspirin (Ecotrin Ec) 81 mg DAILY PO 08/13/17 09:00 08/15/17 09:30 Cholecalciferol (Vitamin D3) 2,000 units DAILY PO 08/13/17 09:00 08/15/17 09:30 Diltiazem HCl (Cardizem Cd) 300 mg DAILY PO 08/13/17 09:00 08/14/17 08:39 Dorzolamide HCl (Trusopt 2% Opt Soln) 1 drop BID EACH EYE 08/12/17 21:00 08/15/17 09:32 Fluticasone Propionate (Flonase Luis Spr) 1 spray BID EACH NARE 08/12/17 21:00 08/15/17 09:32 Latanoprost (Xalatan 0.005% Opth Soln) 1 drop HS EACH EYE 08/12/17 21:00 08/14/17 08:41 Montelukast Sodium (Singulair) 10 mg HS PO 08/12/17 21:00 08/14/17 21:00 Trimethoprim/ Sulfamethoxazole (Bactrim Ds 800-160 Mg) 1 tab BID PO 08/12/17 21:00 08/15/17 09:29 Calcium/Vitamin D (Oscal-D 250-125) 500 mg DAILY PO 08/13/17 09:00 08/15/17 09:30 Losartan Potassium (Cozaar) 100 mg DAILY PO 08/13/17 09:00 08/14/17 08:39 Multivitamins (Theragran) 1 tab DAILY PO 08/13/17 09:00 08/15/17 09:30 Furosemide (Lasix) 40 mg DAILY PO 08/13/17 09:00 08/15/17 09:30 Pantoprazole Sodium (Protonix) 40 mg DAILY PO 08/13/17 09:00 08/15/17 09:29 Guaifenesin (Mucinex Er) 600 mg BID PO 08/12/17 21:00 08/15/17 09:29 Objective Remarks GENERAL: Elderly female upright in bed in nad. SKIN: Warm and dry. HEAD: Normocephalic. EYES: No injection or drainage. NECK: Supple, trachea midline. CARDIOVASCULAR: Regular rate and rhythm RESPIRATORY: Breath sounds equal bilaterally. No accessory muscle use. GASTROINTESTINAL: Abdomen soft, non-tender, nondistended. EXTREMITIES: No cyanosis NEUROLOGICAL: awake and alert, normal speech. moving all extremities. Assessment/Plan Problem List: (1) Chronic ITP (idiopathic thrombocytopenia) ICD Codes: D69.3 - Immune thrombocytopenic purpura Plan: -- Patient has history of chronic idiopathic, cytopenic purpura -- Okay for aspirin -- Platelet count fluctuates between 30-40,000 (2) Non-STEMI (non-ST elevated myocardial infarction) ICD Codes: I21.4 - Non-ST elevation (NSTEMI) myocardial infarction Status: Acute Plan: -- Cardiology following -- Patient was previously on Coumadin for many years for a history of pulmonary embolism Assessment 86-year-old female admitted for cardiac workup; hematology consulted for chronic ITP and recommendations on anticoagulation Plan 1. hematology clear for discharge 2. ok to continue ASA 3. monitor CBC Attending Statement The exam, history, and the medical decision-making described in the above note were completed with the assistance of the mid-level provider. I reviewed and agree with the findings presented. I attest that I had a [id number] encounter with the patient on the same day, and personally performed and documented my assessment and findings in the medical record. Late entry. No CP /SOB. No bleeding, +easy bruising. Platelet stable. Continue ASA. F/u hematology clinic. 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 Milly Mcelroy Aug 15, 2017 10:21 Silvano Covington MD Aug 15, 2017 15:32
[2017-08-15] MEDS ORDERED: PNEUMOCOCCAL POLYVALENT INJ 25 MCG/0.5 ML SYR IM ONE (11:00)
[2017-08-15] MEDS ORDERED: INFLUENZA VIRUS VACCINE (QUADRIVALENT) 0.5 ML SYR IM ONE (11:00)
--- NOTE | 2017-08-15 13:26 | PD.CARD.PN ---
Subjective Subjective Remarks Patient seen earlier No complaints, back to baseline Waiting to be discharged Objective Medications Current Medications Sodium Chloride (NS Flush) 2 ml UNSCH PRN IVF FLUSH AFTER USING IV ACCESS; Start 08/12/17 at 15:15; Stop 08/12/17 at 17:35; Status DC Sodium Chloride (NS Flush) 2 ml UNSCH PRN IV FLUSH FLUSH AFTER USING IV ACCESS ; Start 08/12/17 at 17:15; Stop 08/15/17 at 12:15; Status DC Sodium Chloride (NS Flush) 2 ml BID IV FLUSH Last administered on 08/15/17 09: 30; Start 08/12/17 at 21:00; Stop 08/15/17 at 12:15; Status DC Acetaminophen (Tylenol) 650 mg Q4H PRN PO TEMP > 100.4; Start 08/12/17 at 17:15 ; Stop 08/15/17 at 12:15; Status DC Ondansetron HCl (Zofran Inj) 4 mg Q6H PRN IVP NAUSEA OR VOMITING; Start at 17:15; Stop 08/15/17 at 12:15; Status DC Metoclopramide HCl (Reglan Inj) 5 mg Q6H PRN IV PUSH NAUSEA OR VOMITING; Start 08/12/17 at 17:15; Stop 08/15/17 at 12:15; Status DC Prochlorperazine (Compazine Supp) 25 mg Q12H PRN RECTAL NAUSEA OR VOMITING; Start 08/12/17 at 17:15; Stop 08/15/17 at 12:15; Status DC Naloxone HCl (Narcan Inj) 0.4 mg UNSCH PRN IV PUSH SEE LABEL COMMENTS; Start at 17:15; Stop 08/15/17 at 12:15; Status DC Senna/Docusate Sodium (Mary-Colace) 1 tab BID PO Last administered on 09:13; Start 08/12/17 at 21:00; Stop 08/13/17 at 10:17; Status DC Magnesium Hydroxide (Milk Of Magnesia Liq) 30 ml Q12H PRN PO MILD - MODERATE CONSTIPATION; Start 08/12/17 at 17:15; Stop 08/15/17 at 12:15; Status DC Sennosides (Senokot) 17.2 mg Q12H PRN PO MODERATE - SEVERE CONSTIPATION; Start 08/12/17 at 17:15; Stop 08/13/17 at 10:17; Status DC Bisacodyl (Dulcolax Supp) 10 mg DAILY PRN RECTAL SEVERE CONSITIPATION; Start at 17:15; Stop 08/13/17 at 10:17; Status DC Lactulose (Lactulose Liq) 30 ml DAILY PRN PO SEVERE CONSITIPATION; Start at 17:15; Stop 08/13/17 at 10:17; Status DC Furosemide (Lasix Inj) 40 mg ONCE ONCE IV PUSH Last administered on 08/12/17 17:49; Start 08/12/17 at 18:00; Stop 08/12/17 at 18:01; Status DC Aspirin (Ecotrin Ec) 81 mg DAILY PO Last administered on 08/15/17 09:30; Start 08/13/17 at 09:00; Stop 08/15/17 at 12:15; Status DC Morphine Sulfate (Morphine Inj) 2 mg Q3H PRN IV PUSH CHEST PAIN; Start at 17:30; Stop 08/15/17 at 12:15; Status DC Albuterol/ Ipratropium (Duoneb Neb) 1 ampule Q4HR NEB PRN NEB WHEEZING, SOB; Start 08/12/17 at 17:30; Stop 08/15/17 at 12:15; Status DC Albuterol Sulfate (Proair Hfa Inh) 2 puff Q6H PRN INH SHORTNESS OF BREATH; Start 08/12/17 at 17:45; Stop 08/15/17 at 12:15; Status DC Cholecalciferol (Vitamin D3) 2,000 units DAILY PO Last administered on 09:30; Start 08/13/17 at 09:00; Stop 08/15/17 at 12:15; Status DC Diltiazem HCl (Cardizem Cd) 300 mg DAILY PO Last administered on 08/14/17 08: 39; Start 08/13/17 at 09:00; Stop 08/15/17 at 12:15; Status DC Dorzolamide HCl (Trusopt 2% Opt Soln) 1 drop BID EACH EYE Last administered on 08/15/17 09:32; Start 08/12/17 at 21:00; Stop 08/15/17 at 12:15; Status DC Fluticasone Propionate (Flonase Luis Spr) 1 spray BID EACH NARE Last administered on 08/15/17 09:32; Start 08/12/17 at 21:00; Stop 08/15/17 at 12:15 ; Status DC Latanoprost (Xalatan 0.005% Opt Soln) 1 drop HS EACH EYE Last administered on 08/14/17 08:41; Start 08/12/17 at 21:00; Stop 08/15/17 at 12:15; Status DC Montelukast Sodium (Singulair) 10 mg HS PO Last administered on 08/14/17 21:00 ; Start 08/12/17 at 21:00; Stop 08/15/17 at 12:15; Status DC Trimethoprim/ Sulfamethoxazole (Bactrim Ds 800-160 Mg) 1 tab BID PO Last administered on 08/15/17 09:29; Start 08/12/17 at 21:00; Stop 08/15/17 at 12:15 ; Status DC Calcium/Vitamin D (Oscal-D 250-125) 500 mg DAILY PO Last administered on 09:30; Start 08/13/17 at 09:00; Stop 08/15/17 at 12:15; Status DC Losartan Potassium (Cozaar) 100 mg DAILY PO Last administered on 08/14/17 08: 39; Start 08/13/17 at 09:00; Stop 08/15/17 at 12:15; Status DC Multivitamins (Theragran) 1 tab DAILY PO Last administered on 08/15/17 09:30; Start 08/13/17 at 09:00; Stop 08/15/17 at 12:15; Status DC Furosemide (Lasix) 40 mg DAILY PO Last administered on 08/15/17 09:30; Start 08/13/17 at 09:00; Stop 08/15/17 at 12:15; Status DC Nitroglycerin (Nitrolingual Sl [place]) 1 spray Q5M PRN SL CHEST PAIN; Start at 17:45; Stop 08/15/17 at 12:15; Status DC Pantoprazole Sodium (Protonix) 40 mg ONCE ONCE PO Last administered on 17:52; Start 08/12/17 at 18:00; Stop 08/12/17 at 18:01; Status DC Pantoprazole Sodium (Protonix) 40 mg DAILY PO Last administered on 08/15/17 09 :29; Start 08/13/17 at 09:00; Stop 08/15/17 at 12:15; Status DC Guaifenesin (Mucinex Er) 600 mg BID PO Last administered on 08/15/17 09:; Start 08/12/17 at 21:00; Stop 08/15/17 at 12:15; Status DC Pneumococcal Polyvalent Vaccine (Pneumovax-23 Inj) 25 mcg ONCE ONCE IM ; Start 08/15/17 at 11:00; Stop 08/15/17 at 11:01; Status DC Influenza Virus Vaccine (Flu (Quadrivalent) Vaccine Inj) 0.5 ml ONCE ONCE IM ; Start 08/15/17 at 11:00; Stop 08/15/17 at 11:01; Status DC Vital Signs / I&O Vital Signs Date Time Temp Pulse Resp B/P (MAP) Pulse Ox O2 Delivery O2 Flow Rate FiO2 08/15/17 08:00 97.4 82 22 101/56 (71) 96 08/15/17 08:00 Room Air 08/15/17 04:00 98.5 70 18 96/50 (65) 96 08/15/17 00:00 98.4 73 18 96/51 (66) 97 08/14/17 20:00 97.7 63 18 113/54 (73) 97 08/14/17 19:45 62 08/14/17 19:45 Room Air 08/14/17 16:00 97.6 80 22 121/54 (76) 96 I/O 08/14/17 08/14/17 08/14/17 08/15/17 08/15/17 08/15/17 07:00 15:00 23:00 07:00 15:00 23:00 Intake Total 220 ml 720 ml 480 ml Output Total 300 ml Balance -80 ml 720 ml 480 ml Intake Oral 220 ml 720 ml 480 ml Output Urine Total 300 ml # Voids 4 3 # Bowel Movements 0 1 1 Physical Exam GENERAL: NAD, AAOx3 SKIN: Warm and dry. HEAD: Atraumatic. Normocephalic. EYES: Pupils equal and round. No scleral icterus. No injection or drainage. ENT: No nasal bleeding or discharge. Mucous membranes pink and moist. NECK: Trachea midline. No JVD. CARDIOVASCULAR: Regular rate and rhythm. 3/6 crescendo-decrescendo murmur to RSB RESPIRATORY: No accessory muscle use. Clear to auscultation. Breath sounds equal bilaterally. GASTROINTESTINAL: Abdomen soft, non-tender, nondistended. Hepatic and splenic margins not palpable. MUSCULOSKELETAL: Extremities without clubbing, cyanosis. Bilateral venous stasis changes. No obvious deformities. NEUROLOGICAL: Awake and alert. No obvious cranial nerve deficits. Motor grossly within normal limits. Five out of 5 muscle strength in the arms and legs. Normal speech. PSYCHIATRIC: Appropriate mood and affect; insight and judgment normal. Assessment and Plan Problem List: (1) Aortic stenosis, severe ICD Codes: I35.0 - Nonrheumatic aortic (valve) stenosis (2) Elevated troponin I level ICD Codes: R74.8 - Abnormal levels of other serum enzymes (3) Pleural effusion ICD Codes: J90 - Pleural effusion, not elsewhere classified Status: Acute (4) Meningioma ICD Codes: D32.9 - Benign neoplasm of meninges, unspecified Status: Acute Assessment and Plan 1) Discussed with the patient her options for elevated troponin and severe aortic stenosis She would like to continue medical management, not ready to decide one way or another on what she should have done She would like to further discuss this with her niece who is currently out of town, as well as Dr. Lao 2) ITP with platelets around 50k, previously mostly in the 30s 3) Con't ASA 4) Cardiovascularly stable for discharge 5) Elevated troponin most likely due to severe aortic stenosis, but also possible CAD In discussion with her, overall most likely would be a TAVR candidate, concern would be placing on ASA/Plavix post-procedure halfway Tex Delgadillo DO Aug 15, 2017 13:26
== END 2017-08-15 12:12 | DRG 281 ==
LOC: NEPE 14:50 → NEDA 16:45 → N04A 18:41
PROVIDERS: ADMIT Hospitalist; ATTEND Hospitalist
DX: I21.4 Non-ST elevation (NSTEMI) myocardial infarction (principal); D69.3 Immune thrombocytopenic purpura; N17.9 Acute kidney failure, unspecified; I11.0 Hypertensive heart disease with heart failure; I50.9 Heart failure, unspecified; J98.11 Atelectasis; I08.3 Combined rheumatic disorders of mitral, aortic and tricuspid valves; E78.5 Hyperlipidemia, unspecified; I25.119 Atherosclerotic heart disease of native coronary artery with unspecified angina pectoris; J45.909 Unspecified asthma, uncomplicated; Z86.011 Personal history of benign neoplasm of the brain; Z96.611 Presence of right artificial shoulder joint; Z96.651 Presence of right artificial knee joint; H40.9 Unspecified glaucoma
CPT/HCPCS: 71010; 80048; 80053; 80061; 81001; 82550; 83036; 83735; 83880; 84100; 84439; 84443; 84484; 85025; 85610; 85730; 87086; 93005; 93306; 94150; J1940

== ENCOUNTER 2017-09-03 15:27 | Inpatient (IN) | payer MEDICARE, OTHER ==
[~2017-09-03] VITALS: Ht 160 cm; Wt 80.2 kg
[2017-09-03] VITALS (13 sets, daily range): BP systolic 79–162; BP diastolic 49–94; PULSE 82–127; RESP 20–25; TEMP 97.7–98.6; O2SAT 94–98
[~2017-09-03 15:27] MED LIST changes: +ASPI-99 PO; +BACT800T5 PO; +FLUT50SP EACH NARE; -TOBRSUS9 RIGHT EYE; +VENTAER INH
[2017-09-03] MEDS ORDERED: SODIUM CHLORIDE 0.9% FLUSH 10 ML FLUSH IVF PRN (15:45)
[2017-09-03] MEDS ORDERED: SODIUM CHLORID 0.9% 500 ML INJ 500 ML IV ONE (15:45)
[2017-09-03] MEDS ORDERED: POTA-243 PO (15:48)
[2017-09-03] MEDS ORDERED: FURO20TA PO (15:48)
[2017-09-03] MEDS ORDERED: SODIUM CHLOR 0.9% 250 ML INJ 250 ML IV ONE (16:00)
--- NOTE | 2017-09-03 16:09 | RADRPT ---
EXAM DATE/TIME: 09/03/2017 15:39 [facility] COMPARISON: CHEST SINGLE AP, August 12, 2017, 15:12. INDICATIONS : Chest pain. MEDICAL HISTORY : None. SURGICAL HISTORY : None. ENCOUNTER: Initial ACUITY: 1 day PAIN SCORE: 3/10 LOCATION: Bilateral chest FINDINGS: Portable AP view of the chest demonstrates cardiac silhouette size of the upper limits for normal wit h calcification of the aorta. There is slight blunting of the costophrenic sulci bilaterally. Interst itial prominence is stable bilaterally. No airspace consolidation or pneumothorax is identified. Bone s and soft tissues demonstrate no acute finding. CONCLUSION: 1. Stable slight blunting of the left costophrenic sulcus likely representing a small pleural effusio n. There is questionable trace right pleural fluid as well. 2. Stable bilateral interstitial prominence. Regan Payne MD on September 03, 2017 at 16:05 Board Certified Radiologist. This report was verified electronically.
[2017-09-03 16:12] LABS: AUTOMATED NEUTROPHIL # 6.3 TH/MM3 (1.8-7.7); BASOPHIL % 0.4 % (0.0-2.0); EOSINOPHIL # 0.3 TH/MM3 (0-0.4); EOSINOPHIL % 3.8 % (0.0-4.0); HEMATOCRIT 33.1 % (35.0-46.0); LYMPHOCYTE # 1.4 TH/MM3 (1.0-4.8); MEAN CELL VOLUME 89.3 FL (80.0-100.0); MEAN CORPUSCULAR HEMOGLOBIN 29.7 PG (27.0-34.0); MEAN CORPUSCULAR HGB CONC 33.2 % (32.0-36.0); MONO % 8.1 % (0.0-8.0); NEUT % 71.7 % (16.0-70.0); PLATELET COUNT 67 TH/MM3 (150-450); RED BLOOD COUNT 3.71 MIL/MM3 (4.00-5.30); WHITE BLOOD COUNT 8.9 TH/MM3 (4.0-11.0)
--- NOTE | 2017-09-03 16:15 | PD ---
HPI Chief Complaint: Cardiac Complaint Time Seen by Provider: 15:38 Travel History International Travel<30 days: No Contact w/Intl Traveler<30days: No Traveled to known affect area: No History of Present Illness HPI Patient is an 86-year-old female with history of severe aortic stenosis, coronary artery disease, hypertension, osteoarthritis, presents to emergency room with complaints of syncope with chest pain. Patient lives at assisted living facility, reports that they were on a trip today and patient had a syncopal episode on the bus. Reports that they tried to take the patient off the bus, patient appeared unresponsive and blue in the lips. Patient was able to come to after a few minutes, EMS arrived on scene, reports that she was given an aspirin. Reports the patient had another syncopal episode while they are trying to put on a stretcher. Reports that she was unresponsive for a few minutes. Reports that she was hypoxic with a pulse ox of 88% on room air. She was also hypotensive with a blood pressure 78/45. She presents to the emergency room hypotensive with a blood pressure of 78/39, reports that she has "a little pressure to her left chest." Patient reports that chest pain is not radiating nature. Patient does report diaphoresis as well as shortness of breath with her symptoms. Patient follows with Dr. Bowman in the office [facility] Past Medical History Hx Anticoagulant Therapy: No Arthritis: Yes (OSTEOARTHRITIS) Asthma: Yes Autoimmune Disease: No Blood Disorders: Yes Anxiety: No Depression: No Heart Rhythm Problems: No Cancer: No Cardiovascular Problems: Yes (cardiac artery stenosis) High Cholesterol: Yes Chemotherapy: No Chest Pain: No Congestive Heart Failure: Yes COPD: No Cerebrovascular Accident: No Diabetes: No Diminished Hearing: No Endocrine: No Gastrointestinal Disorders: Yes GERD: No Glaucoma: Yes Genitourinary: No Hepatitis: No Hiatal Hernia: Yes Hypertension: Yes Immune Disorder: Yes (ITP) Kidney Stones: No Musculoskeletal: Yes Neurologic: No Psychiatric: No Reproductive: Yes Respiratory: Yes Immunizations Current: Yes Migraines: No Myocardial Infarction: No Radiation Therapy: No Renal Failure: No Seizures: No Sickle Cell Disease: No Sleep Apnea: No Thyroid Disease: No Ulcer: No Menopausal: Yes Past Surgical History Abdominal Surgery: Yes (EPIGASTRIC HERNIA) AICD: No Appendectomy: Yes Arteriovenous Shunt: No Cardiac Surgery: No Cholecystectomy: No Ear Surgery: No Endocrine Surgery: No Eye Surgery: Yes (BILAT CATARACT SURGERY WITH OLR) Genitourinary Surgery: No Gynecologic Surgery: Yes (HYSTERECTOMY) Hysterectomy: No Insulin Pump: No Joint Replacement: Yes (RT TKR; RT RADIAL HEAD) Neurologic Surgery: No Oral Surgery: Yes (DENTURE PREP) Pacemaker: No Thoracic Surgery: No Tonsillectomy: Yes Other Surgery: Yes (IVC filter April 2007-PE) Social History Alcohol Use: Yes (wine occas) Tobacco Use: No Substance Use: No Allergies-Medications (Allergen,Severity, Reaction): Coded Allergies: No Known Allergies (Verified , 09/03/17) Reported Meds & Prescriptions Reported Meds & Active Scripts Active Adult Aspirin EC Low Strength (Aspirin) 81 Mg Tabec 81 Mg PO DAILY Dorzolamide Opth Drops (Dorzolamide HCl) 2% Soln 1 Drop EACH EYE BID Latanoprost Opth Drops (Latanoprost) 0.005% Drops 1 Drop EACH EYE HS Refrigerate until opened. Reported Klor-Con 10 (Potassium Chloride) 10 Meq Tab 10 Meq PO DAILY Furosemide 20 Mg Tab 20 Mg PO DAILY Ventolin Hfa 18 GM Inh (Albuterol Sulfate) 90 Mcg/Act Aer 2 Puff INH Q6H PRN Fluticasone Nasal [place] 50 Mcg/Act Naspr 50 Mcg EACH NARE BID 50 mcg/spray Calcium 500+D (Calcium Carbonate-Cholecalciferol) 500-400 Mg-Unit Tab 1 Tab PO DAILY Centrum Women Tablet (Multivitamin/Iron/Folic Acid) 1 Each Tablet 1 Tab PO DAILY Montelukast (Montelukast Sodium) 10 Mg Tab 1 Tab PO HS Cartia Xt (Diltiazem ER 24 HR) 300 Mg Caper 1 Cap PO DAILY Candesartan (Candesartan Cilexetil) 32 Mg Tab 1 Tab PO DAILY Vitamin D3 (Cholecalciferol) 2,000 Unit Cap 1 Cap PO DAILY Review of Systems General / Constitutional: No: Fever Eyes: No: Visual changes HENT: No: Headaches Cardiovascular: Positive: Chest Pain or Discomfort, Syncope Respiratory: Positive: Shortness of Breath Gastrointestinal: No: Abdominal Pain Genitourinary: No: Dysuria Musculoskeletal: No: Pain Skin: No Rash Neurologic: No: Weakness Psychiatric: No: Depression Endocrine: No: Polydipsia Hematologic/Lymphatic: No: Easy Bruising Physical Exam Narrative GENERAL: severe distress SKIN: Focused skin assessment warm/dry. HEAD: Atraumatic. Normocephalic. EYES: Pupils equal and round. No scleral icterus. No injection or drainage. ENT: No nasal bleeding or discharge. Mucous membranes pink and moist. NECK: Trachea midline. No JVD. CARDIOVASCULAR: Irregular rate and rhythm. 5/6 murmur appreciated. RESPIRATORY: No accessory muscle use. mild rales to lung bases. Breath sounds equal bilaterally. GASTROINTESTINAL: Abdomen soft, non-tender, nondistended. Hepatic and splenic margins not palpable. MUSCULOSKELETAL: No obvious deformities. No clubbing. No cyanosis. No edema. NEUROLOGICAL: Awake and alert. No obvious cranial nerve deficits. Motor grossly within normal limits. Normal speech. PSYCHIATRIC: Appropriate mood and affect; insight and judgment normal. Data Data Last Documented VS Vital Signs Date Time Temp Pulse Resp B/P (MAP) Pulse Ox O2 Delivery O2 Flow Rate FiO2 09/03/17 17:02 103 22 109/52 (71) 96 Nasal Cannula 2.00 09/03/17 15:30 97.7 Orders Orders Electrocardiogram (09/03/17 15:38) B-Type Natriuretic Peptide (09/03/17 15:38) Ckmb (Isoenzyme) Profile (09/03/17 15:38) Complete Blood Count With Diff (09/03/17 15:38) Comprehensive Metabolic Panel (09/03/17 15:38) Magnesium (Mg) (09/03/17 15:38) Prothrombin Time / Inr (Pt) (09/03/17 15:38) Act Partial Throm Time (Ptt) (09/03/17 15:38) Troponin I (09/03/17 15:38) Lipase (09/03/17 15:38) Chest, Single Ap (09/03/17 15:38) Ecg Monitoring (09/03/17 15:38) Iv Access Insert/Monitor (09/03/17 15:38) Oximetry (09/03/17 15:38) Sodium Chloride 0.9% Flush (Ns Flush) (09/03/17 15:45) Sodium Chlorid 0.9% 500 Ml Inj (Ns 500 M (09/03/17 15:45) Sodium Chlor 0.9% 250 Ml Inj (Ns 250 Ml (09/03/17 16:00) Consult Cardiology (09/03/17 ) (Hub Use Only)Inp Phy Cons/Ref (09/03/17 ) Heparin Infusion MADISNO.Q1H (09/03/17 16:54) Heparin-D5w 25,000 U/250 Ml (Heparin-D5w (09/03/17 17:00) ^ Infusion (09/03/17 ) Norepinephrine Inj (Levophed Inj) (09/03/17 17:15) Admit Order (Ed Use Only) (09/03/17 17:12) Labs Laboratory Tests Test 09/03/17 15:40 White Blood Count 8.9 TH/MM3 Red Blood Count 3.71 MIL/MM3 Hemoglobin 11.0 GM/DL Hematocrit 33.1 % Mean Corpuscular Volume 89.3 FL Mean Corpuscular Hemoglobin 29.7 PG Mean Corpuscular Hemoglobin Concent 33.2 % Red Cell Distribution Width 16.0 % Platelet Count 67 TH/MM3 Mean Platelet Volume 11.5 FL Neutrophils (%) (Auto) 71.7 % Lymphocytes (%) (Auto) 16.0 % Monocytes (%) (Auto) 8.1 % Eosinophils (%) (Auto) 3.8 % Basophils (%) (Auto) 0.4 % Neutrophils # (Auto) 6.3 TH/MM3 Lymphocytes # (Auto) 1.4 TH/MM3 Monocytes # (Auto) 0.7 TH/MM3 Eosinophils # (Auto) 0.3 TH/MM3 Basophils # (Auto) 0.0 TH/MM3 CBC Comment AUTO DIFF Differential Comment AUTO DIFF CONFIRMED Platelet Estimate LOW Platelet Morphology Comment ENLARGED Prothrombin Time 11.9 SEC Prothromb Time International Ratio 1.1 RATIO Activated Partial Thromboplast Time 24.8 SEC Blood Urea Nitrogen 27 MG/DL Creatinine 1.15 MG/DL Random Glucose 176 MG/DL Total Protein 6.5 GM/DL Albumin 3.3 GM/DL Calcium Level 8.6 MG/DL Magnesium Level 2.2 MG/DL Alkaline Phosphatase 66 U/L Aspartate Amino Transf (AST/SGOT) 131 U/L Alanine Aminotransferase (ALT/SGPT) 115 U/L Total Bilirubin 0.6 MG/DL Sodium Level 141 MEQ/L Potassium Level 4.5 MEQ/L Chloride Level 108 MEQ/L Carbon Dioxide Level 21.6 MEQ/L Anion Gap 11 MEQ/L Estimat Glomerular Filtration Rate 45 ML/MIN Total Creatine Kinase 72 U/L Troponin I 0.30 NG/ML B-Type Natriuretic Peptide 787 PG/ML Lipase 192 U/L MDM Medical Decision Making Medical Screen Exam Complete: Yes Emergency Medical Condition: Yes Medical Record Reviewed: Yes Interpretation(s) EKG at 1535: Atrial flutter at 125 bpm, QT/QTC 241/[address] segment depressions in inferior lateral leads Vital Signs Date Time Temp Pulse Resp B/P (MAP) Pulse Ox O2 Delivery O2 Flow Rate FiO2 09/03/17 16:04 110 22 79/49 (59) 96 Nasal Cannula 2.00 09/03/17 15:40 97 Nasal Cannula 2.00 09/03/17 15:30 97.7 127 24 162/94 (116) 94 Differential Diagnosis Differential includes ACS, arrhythmia, severe aortic stenosis,electrolyte abnormality Narrative Course 86-year-old female with severe aortic stenosis, hypertension, cerumen after having multiple syncopal episodes today. Patient was found to be hypotensive and hypoxic by EMS, she was given a dose of aspirin. Patient is presenting to emergency room with complaints of left-sided chest pain, reports that she has a mild left-sided pressure to her chest. Pain is nonradiating in nature. Patient was placed on a school lunch monitor upon arrival to the emergency room. Patient will be given fluids lightly at 250ml boluses. Case reviewed with Dr. Sidhu with [facility]. Recommends conservative IV fluid hydration given her hypotension as well as her severe aortic stenosis. May try amiodarone 150mg IV if she does not respond to IVF Vital Signs Date Time Temp Pulse Resp B/P (MAP) Pulse Ox O2 Delivery O2 Flow Rate FiO2 09/03/17 16:31 97 22 87/51 (63) 96 Nasal Cannula 2.00 09/03/17 16:04 110 22 79/49 (59) 96 Nasal Cannula 2.00 09/03/17 15:40 97 Nasal Cannula 2.00 09/03/17 15:30 97.7 127 24 162/94 (116) 94 BP now 109/52 after 250cc of IVF, patient with labile BP CBC & BMP Diagram 09/03/17 15:40 Total Protein 6.5, Albumin 3.3 L, Calcium Level 8.6, Magnesium Level 2.2, Alkaline Phosphatase 66, Aspartate Amino Transf (AST/SGOT) 131 H, Alanine Aminotransferase (ALT/SGPT) 115 H, Total Bilirubin 0.6 Patient with trop of 0.3, bnp 787, plan to start heparin drip and admit to ICU. She has already received dose of aspirin by EMS today Case reviewed with Dr Spears who accepts pt to service Critical Care Narrative Aggregate critical care time was 45 minutes. Time to perform other separately billable procedures was not included in the critical care time. My time did not include minutes spent treating any other patients simultaneously or on activities that did not directly contribute to the patient's treatment. The services I provided to this patient were to treat and/or prevent clinically significant deterioration that could result in: , decompensation, deterioration I provided critical care services requiring my management, as noted below: Chart data review, documentation time, medication orders and management, vital sign assessments/reviewing monitor data, ordering and reviewing lab tests, ordering and interpreting/reviewing x-rays and diagnostic studies, care of the patient and discussion of the patient with the admitting physicians. Diagnosis Primary Impression: Unstable angina Additional Impression: NSTEMI (non-ST elevated myocardial infarction) Admitting Information Admitting Physician Requests: Kendra Nagy DO Sep 03, 2017 16:15
[2017-09-03 16:20] LABS: APTT (PATIENT) 24.8 SEC (24.3-30.1); INTERNATIONAL NORMALIZED RATIO 1.1 RATIO; PROTHROMBIN TIME - PATIENT 11.9 SEC (9.8-11.6)
[2017-09-03 16:22] LABS: ANION GAP 11 MEQ/L (5-15); AST (GOT) 131 U/L (15-37); BICARBONATE 21.6 MEQ/L (21.0-32.0); BLOOD UREA NITROGEN 27 MG/DL (7-18); CHLORIDE 108 MEQ/L (98-107); GLOMERULAR FILTRATION RATE 45 ML/MIN (>89); MAGNESIUM 2.2 MG/DL (1.5-2.5); POTASSIUM 4.5 MEQ/L (3.5-5.1); SODIUM (NA) 141 MEQ/L (136-145)
[2017-09-03 16:23] LABS: ALT (GPT) 115 U/L (10-53)
[2017-09-03 16:27] LABS: ALKALINE PHOSPHATASE 66 U/L (45-117); HEMO FLAGS AUTO DIFF; TOTAL BILIRUBIN ADULT 0.6 MG/DL (0.2-1.0)
[2017-09-03 16:35] LABS: CREATINE KINASE 72 U/L (26-192)
[2017-09-03] MEDS ORDERED: HEPARIN-D5W 25,000 U/250 ML 250 ML IV PRN (17:00)
[2017-09-03 17:33] LABS: PLATELET ESTIMATE SMEAR LOW (NORMAL)
[2017-09-03 17:34] LABS: PLATELET MORPHOLOGY ENLARGED (NORMAL); SCAN/DIFF AUTO DIFF CONFIRMED
[2017-09-03] MEDS: NOREPINEPHRINE INJ 4 MG in SODIUM CHLOR 0.9% 250 ML INJ 246 ML IV PRN ×2 (17:34→18:49)
[2017-09-03] MEDS ORDERED: AMIODARONE INJ 150 MG in DEXTROSE 5% IN WATER 100ML INJ 100 ML IV ONE ×2 (18:01)
[2017-09-03] MEDS: ASPIRIN EC 81 MG TABEC PO SCH (19:46)
--- NOTE | 2017-09-03 20:21 | MB ---
cc: CYNDI LAO M.D., [place] DATE OF CONSULTATION: 09/03/2017 REASON FOR CONSULTATION: Chest pain, syncope, abnormal EKG, history of aortic stenosis. HISTORY OF PRESENT ILLNESS: The patient is an 86 year-old white female, followed in our office by Dr. Cyndi Lao, with a history of severe aortic stenosis, hypertension, hyperlipidemia, pulmonary embolism, congestive heart failure, who apparently had two syncopal episodes while traveling in a bus with assisted living facility residents today. The patient states she remembers feeling lightheaded before losing consciousness. She was able to regain consciousness briefly but lost consciousness again for a few minutes. She denies any prior episodes of syncope. Today, she also reports intermittent episodes of left upper chest discomfort described as "just a pain" never lasting more than a couple of minutes. Over the last few weeks she has noticed progressively worsening shortness of breath and pedal edema. She denies paroxysmal nocturnal dyspnea. Earlier today she also states she may have felt some rapid palpitations which she has never felt before. At the present time, she is resting comfortably denying chest pain, dizziness, shortness of breath. In the emergency department she was hypotensive with systolic blood pressures in the 70s. Her systolic pressure now is 98 with a heart rate of 90. Initial EKG suggested possible atrial fibrillation with a rapid ventricular response. PAST MEDICAL HISTORY: 1. Severe aortic stenosis. An echocardiogram 08/13/2017 showed a mean transvalvular aortic gradient of 79 mmHg with aortic valve area of 0.5 square cm. 2. Asthma 3. Deep venous thrombosis of the left lower extremity 2006. 4. Diverticulosis. 5. Hyperlipidemia. 6. Hypertension 7. Pulmonary embolism 2006 with subsequent placement of an inferior vena cava filter. 8. 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 CARDIAC MEDICATIONS AT HOME: 1. Aspirin 81 mg daily. 2. Atacand 32 mg daily. 3. Cardizem CD 300 mg daily. 4. Furosemide 20 mg daily. 5. Klor-Con 10 milliequivalents qd. ALLERGIES NO KNOWN DRUG ALLERGIES. FAMILY HISTORY Noncontributory. SOCIAL HISTORY The patient denies alcohol or tobacco abuse. REVIEW OF SYSTEMS: As in the history of present illness, otherwise negative or noncontributory. She also currently denies headache, visual changes, unilateral weakness or numbness, abdominal pain, melena, dyspepsia, bright red blood per rectum, cough. Occasionally she experiences mild wheezing. PHYSICAL EXAMINATION: On physical examination her blood pressure 92/50 with a pulse of 90, respirations 20. In general she is a well-developed, well-nourished white female in no acute distress. HEENT examination: Jugular venous pressure is 7 cm of water. Carotid pulses are trace bilaterally and without bruits. CHEST: Diminished breath sounds at the bases. CARDIAC: She has a regular rhythm and rate with grade 2/6 aortic stenosis murmur, heard best at the base of the heart. The S2 heart sound is markedly diminished. No gallop is audible. ABDOMEN: She has a soft, obese, nontender abdomen. Bowel sounds are present. There is no definite hepatosplenomegaly. EXTREMITIES: No clubbing or cyanosis. There is 2 to 3+ pretibial edema bilaterally. LABORATORY DATA: Includes WBC 8.9, hemoglobin 11.0, platelet count 67, potassium 4.5, BUN 27, creatinine 1.15. AST 131, ALT 115. Troponin 0.03. CK 72. B-natriuretic peptide level 787, INR 1.1. Chest x-ray shows possible small bilateral pleural effusion. The EKG shows probable atrial fibrillation with rapid ventricular response, marked inferior and anterolateral ST depression consider ischemia. IMPRESSION Syncope, chest pain, paroxysmal atrial fibrillation, hypotension, congestive heart failure in this 86-year-old white female with a history of severe aortic stenosis, chronic renal insufficiency, chronic thrombocytopenia, hypertension, hyperlipidemia, pulmonary embolism and deep venous thrombosis 2006. I suspect atrial fibrillation with rapid ventricular response and its associated loss of atrial contribution to left ventricular filling, in the setting of severe aortic stenosis, caused a considerable drop in the patient's blood pressure, resulting in loss of consciousness. She is now back in sinus rhythm and normotensive. By exam, symptoms, and chest x-ray she has congestive heart failure as well. The chest pains she experienced today are overall atypical for myocardial ischemia, although she has marked ST segment depression on EKG. 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 Her prognosis without intervention on her aortic valve is very poor. At this point the patient would be willing to undergo transcatheter aortic valve replacement. However, they would like to have it done at a center with more established experience. RECOMMENDATIONS 1. Start amiodarone to help maintain sinus rhythm. 2. Gentle diuresis. 3. Consider beta-norma therapy if her blood pressures will tolerate. 4. Continue daily aspirin. 5. Await subsequent cardiac enzymes. 6. When hemodynamically and clinically stable she can be discharged home with subsequent referral for transcatheter aortic valve replacement possibly in [place]. MD JONATHAN Altamirano/MALINI /5:51 PM /7:51 PM MTDFer
[2017-09-03] MEDS: AMIODARONE INJ 450 MG in DEXTROSE 5% IN WATE(EXCEL) INJ 241 ML IV PRN ×2 (22:29)
[2017-09-03] MEDS ORDERED: CHLORHEXIDINE GLUCONATE 2 % 1 PACK (2 CLOTHS)(extra cloths) TOPICAL PRN (23:00)
[2017-09-03] MEDS: CHLORHEXIDINE GLUCONATE 2 % 1 PACK (2 CLOTHS)(taper/protocol) TOPICAL SCH (23:17)
--- NOTE | 2017-09-03 23:21 | HHI.HP ---
HPI Service Critical Care Medicine Primary Care Physician Deann Bains MD Admission Diagnosis NSTEMI, unstable angina Diagnosis: Chief Complaint: shortness of breath Travel History International Travel<30 Days: No Contact w/Intl Traveler <30 Da: No Traveled to Known Affected Are: No History of Present Illness This is an 86-year-old female with a history of severe aortic stenosis who was deciding whether or not she wanted to pursue transcatheter aortic valve replacement as an outpatient who was recently admitted to an outside hospital for an STEMI secondary to her aortic stenosis who presents with a few day history of worsening shortness of breath and exertional dyspnea and was found to be in new onset A. fib RVR along with hypotension, lactic acidosis, and positive troponins. She denies overt chest pain. Does state she feels very fatigued and unable to do the same things that she was able to do earlier. Over the past few months she's had a fairly rapid decline in functional status and her long term facility. She does say that her treasury accountant was talking to her about transcatheter aortic valve replacement, she does not know if she wants to undergo this. She has idiopathic cytopenic purpura and is followed by a full time paramedic. In the emergency department, and amiodarone infusion was started along with norepinephrine to maintain coronary perfusion pressure. Review of Systems Constitutional: COMPLAINS OF: Fatigue, DENIES: Fever, Chills Respiratory: COMPLAINS OF: Shortness of breath, DENIES: Cough, Wheezing, Hemoptysis, Sputum production Cardiovascular: COMPLAINS OF: Palpitations, Dyspnea on Exertion, Lower Extremity Edema, Orthopnea, DENIES: Chest pain, Syncope Gastrointestinal: DENIES: Abdominal pain, Black stools, Constipation, Diarrhea , Nausea, Vomiting Neurologic: DENIES: Abnormal gait, Headache, Localized weakness Psychiatric: DENIES: Confusion Past Family Social History Allergies: Coded Allergies: No Known Allergies (Verified , 09/03/17) Past Medical History Severe aortic stenosis, echocardiogram 08/13 with mean gradient of 79, Aortic valve area 0.5 Asthma DVT in 2006 Diverticulosis Hyperlipidemia Hypertension Pulmonary embolism 2006 with subsequent IVC filter placement Idiopathic thrombocytopenia purpura Past Surgical History IVC filter placement Reported Medications Adult Aspirin EC Low Strength (Aspirin) 81 Mg Tabec 81 Mg PO DAILY Dorzolamide Opth Drops (Dorzolamide HCl) 2% Soln 1 Drop EACH EYE BID Latanoprost Opth Drops (Latanoprost) 0.005% Drops 1 Drop EACH EYE HS Refrigerate until opened. Klor-Con 10 (Potassium Chloride) 10 Meq Tab 10 Meq PO DAILY Furosemide 20 Mg Tab 20 Mg PO DAILY Ventolin Hfa 18 GM Inh (Albuterol Sulfate) 90 Mcg/Act Aer 2 Puff INH Q6H PRN Fluticasone Nasal [place] 50 Mcg/Act Naspr 50 Mcg EACH NARE BID 50 mcg/spray Calcium 500+D (Calcium Carbonate-Cholecalciferol) 500-400 Mg-Unit Tab 1 Tab PO DAILY Centrum Women Tablet (Multivitamin/Iron/Folic Acid) 1 Each Tablet 1 Tab PO DAILY Montelukast (Montelukast Sodium) 10 Mg Tab 1 Tab PO HS Cartia Xt (Diltiazem ER 24 HR) 300 Mg Caper 1 Cap PO DAILY Candesartan (Candesartan Cilexetil) 32 Mg Tab 1 Tab PO DAILY Vitamin D3 (Cholecalciferol) 2,000 Unit Cap 1 Cap PO DAILY Active Ordered Medications See MAR Family History Reviewed and found to be noncontributory to her acute illness Social History Denies tobacco, EtOH Physical Exam Vital Signs Vital Signs Date Time Temp Pulse Resp B/P (MAP) Pulse Ox O2 Delivery O2 Flow Rate FiO2 09/03/17 23:00 90 09/03/17 23:00 98.3 90 25 124/63 (83) 94 09/03/17 23:00 98.6 90 25 126/66 (86) 95 09/03/17 23:00 09/03/17 22:29 80 115/55 09/03/17 21:12 85 20 111/58 (75) 97 Nasal Cannula 2.00 09/03/17 20:00 86 25 115/55 (75) 98 Nasal Cannula 2.00 09/03/17 19:38 82 20 110/56 (74) 97 Nasal Cannula 2.00 09/03/17 19:27 84 108/54 09/03/17 18:49 80 106/52 09/03/17 18:25 102/58 (73) 09/03/17 18:00 97/54 (68) 09/03/17 17:26 86 22 92/50 (64) 96 Nasal Cannula 2.00 09/03/17 17:02 103 22 109/52 (71) 96 Nasal Cannula 2.00 09/03/17 16:31 97 22 87/51 (63) 96 Nasal Cannula 2.00 09/03/17 16:04 110 22 79/49 (59) 96 Nasal Cannula 2.00 09/03/17 15:40 97 Nasal Cannula 2.00 09/03/17 15:30 97.7 127 24 162/94 (116) 94 Physical Exam gen: frail elderly lady in mild distress, lying in bed heent: perrl. mucous membranes moist neck: distended neck veins. trachea midline chest: mildly tachypneic. equal chest rise cv: on my initial evaluation, HR in the 140s, irregularly irregular. on re- evaluation, NSR in the 80s. abd: soft, nontender, nondistended. no guarding extr: 1+ pitting edema. left mendes with skin tear, barrier dressing applied neuro: RASS 0. GCS 15. no focal deficits. follows commands x 4. Laboratory Laboratory Tests Test 09/03/17 15:40 White Blood Count 8.9 Red Blood Count 3.71 Hemoglobin 11.0 Hematocrit 33.1 Mean Corpuscular Volume 89.3 Mean Corpuscular Hemoglobin 29.7 Mean Corpuscular Hemoglobin Concent 33.2 Red Cell Distribution Width 16.0 Platelet Count 67 Mean Platelet Volume 11.5 Neutrophils (%) (Auto) 71.7 Lymphocytes (%) (Auto) 16.0 Monocytes (%) (Auto) 8.1 Eosinophils (%) (Auto) 3.8 Basophils (%) (Auto) 0.4 Neutrophils # (Auto) 6.3 Lymphocytes # (Auto) 1.4 Monocytes # (Auto) 0.7 Eosinophils # (Auto) 0.3 Basophils # (Auto) 0.0 CBC Comment AUTO DIFF Differential Comment AUTO DIFF CONFIRMED Platelet Estimate LOW Platelet Morphology Comment ENLARGED Prothrombin Time 11.9 Prothromb Time International Ratio 1.1 Activated Partial Thromboplast Time 24.8 Blood Urea Nitrogen 27 Creatinine 1.15 Random Glucose 176 Total Protein 6.5 Albumin 3.3 Calcium Level 8.6 Magnesium Level 2.2 Alkaline Phosphatase 66 Aspartate Amino Transf (AST/SGOT) 131 Alanine Aminotransferase (ALT/SGPT) 115 Total Bilirubin 0.6 Sodium Level 141 Potassium Level 4.5 Chloride Level 108 Carbon Dioxide Level 21.6 Anion Gap 11 Estimat Glomerular Filtration Rate 45 Total Creatine Kinase 72 Troponin I 0.30 B-Type Natriuretic Peptide 787 Lipase 192 Result Diagram: 09/03/17 1540 09/03/17 1540 Imaging Last Impressions Chest X-Ray 09/03/17 1538 Signed Impressions: Service Date/Time: Sunday, September 03, 2017 15:39 - CONCLUSION: 1. Stable slight blunting of the left costophrenic sulcus likely representing a small pleural effusion. There is questionable trace right pleural fluid as well. 2. Stable bilateral interstitial prominence. MD Sabina Beltran VTE Risk Assessment Sabina VTE Risk Assessment: Mod/High Risk (score >= 2) Caprini Risk Assessment Model Point Value = 1 Point Value = 2 Point Value = 3 Point Value = 5 Age 41-60 Minor surgery BMI > 25 kg/m2 Swollen legs Varicose veins or History of unexplained or recurrent spontaneous Oral contraceptives or hormone replacement Sepsis (< 1 month) Serious lung disease, including pneumonia (< 1 month) Abnormal pulmonary function Acute myocardial infarction Congestive heart failure (< 1 month) History of inflammatory bowel disease Medical patient at bed rest Age 61-74 Arthroscopic surgery Major open surgery (> 45 min) Laparoscopic surgery (> 45 min) Malignancy Confined to bed (> 72 hours) Immobilizing plaster cast Central venous access Age >= 75 History of VTE Family history of VTE Factor V Leiden Prothrombin [id number] Lupus anticoagulant Anticardiolipin antibodies Elevated serum homocysteine Heparin-induced thrombocytopenia Other congenital or acquired thrombophilia Stroke (< 1 month) Elective arthroplasty Hip, pelvis, or leg fracture Acute spinal cord injury (< 1 month) Prophylaxis Regimen Total Risk Factor Score Risk Level Prophylaxis Regimen 0-1 Low Early ambulation 2 Moderate Order ONE of the following: *Sequential Compression Device (SCD) *Heparin 5000 units SQ BID 3-4 Higher Order ONE of the following medications: *Heparin 5000 units SQ TID *Enoxaparin/Lovenox 40 mg SQ daily (WT < 150 kg, CrCl > 30 mL/min) *Enoxaparin/Lovenox 30 mg SQ daily (WT < 150 kg, CrCl > 10-29 mL/min) *Enoxaparin/Lovenox 30 mg SQ BID (WT < 150 kg, CrCl > 30 mL/min) AND/OR *Sequential Compression Device (SCD) 5 or more Highest Order ONE of the following medications: *Heparin 5000 units SQ TID (Preferred with Epidurals) *Enoxaparin/Lovenox 40 mg SQ daily (WT < 150 kg, CrCl > 30 mL/min) *Enoxaparin/Lovenox 30 mg SQ daily (WT < 150 kg, CrCl > 10-29 mL/min) *Enoxaparin/Lovenox 30 mg SQ BID (WT < 150 kg, CrCl > 30 mL/min) AND *Sequential Compression Device (SCD) Assessment and Plan Assessment and Plan Assessment: 86yF with severe aortic stenosis, recent NSTEMI, myocardial ischemia from LVH, and now new-onset atrial fibrillation with associated cardiogenic shock, CHF exacerbation secondary to valvulopathy, and recurrent NSTEMI. Critically ill. I have talked at length with the patient about her need to continue work-up for TAVR. If she does not elect to undergo TAVR, she would likely be a good Hospice candidate, as she has had multiple recent NSTEMI secondary to severe aortic stenosis, and her functionality is rapidly declining in her SNF. Her median survival is < 1 year at best. She said she would like to talk again to Dr. Bowman and re-address the possibility of TAVR. Plan: New-onset atrial fibrillation - now back in NSR - continue amio drip. will need to convert this to PO amio once complete - continue heparin drip NSTEMI - secondary to severe aortic stenosis and demand ischemia from CAD and LVH - trend troponins until downtrending - heparin drip - cards consult Severe aortic stenosis - high risk for open AVR - good TAVR candidate - patient needs to decide if she wants to undergo elective TAVR in the future - goal HR < 90, maintain adequate coronary perfusion pressure Cardiogenic Shock - secondary to tachycardia and afib - wean levophed for map > 65 mmHg. - now back in sinus rhythm, will likely wean more quickly. Acute kidney injury - unknown baseline Cr - appears euvolemic - renal injury likely secondary to cardiogenic shock from tachycardia. - trend Cr, close monitoring of UOP, strict I/Os Acute hypoxemia CHF exacerbation secondary to valvular heart disease - wean o2 by NC for spo2 > 90% - will not pursue aggressive forced diuresis: now that she is back in sinus rhythm, should autodiurese. IVC with significant respiratory variation- likely not grossly volume overloaded. - prn nebs. Left leg laceration - wound care consult. SCDs, heparin drip Remain in ICU. Critically ill on vasopressors, in cardiogenic shock with recurrent NSTEMI. Critical Care time: 51 minutes, exclusive of separately billable procedures. Norman Knight MD Sep 03, 2017 23:21
[2017-09-04] VITALS (22 sets, daily range): BP systolic 86–130; BP diastolic 50–69; PULSE 71–119; RESP 16–39; TEMP 98–98.5; O2SAT 93–100
[2017-09-04 00:37] LABS: APTT (PATIENT) 32.6 SEC (24.3-30.1)
[2017-09-04] MEDS ORDERED: DEXTROSE 50% IN WATER 50 ML VIAL(D50) IV PUSH PRN (02:00)
[2017-09-04] MEDS ORDERED: MAGNESIUM SULFATE INJ 2 GM in SODIUM CHLORIDE 0.9% INJ 96 ML IV PRN (02:00)
[2017-09-04] MEDS ORDERED: POTASSIUM PHOSPHATE MONOBASIC 500 MG TAB PO PRN (02:00)
[2017-09-04] MEDS ORDERED: MAGNESIUM SULFATE INJ 4 GM in SODIUM CHLORIDE 0.9% INJ 92 ML IV PRN (02:00)
[2017-09-04] MEDS ORDERED: MAGNESIUM OXIDE 400 MG TAB PO PRN (02:00)
[2017-09-04] MEDS ORDERED: ONDANSETRON HCL 4 MG/2 ML VIAL IV PUSH PRN (02:00)
[2017-09-04] MEDS ORDERED: MAGNESIUM HYDROXIDE SUSP 30 ML CUP PO PRN (02:00)
[2017-09-04] MEDS ORDERED: POTASSIUM PHOSPHATE INJ 30 MMOL in SODIUM CHLOR 0.9% 250 ML INJ 250 ML IV PRN (02:00)
[2017-09-04] MEDS ORDERED: POTASSIUM PHOSPHATE MONOBASIC 500 MG TAB PO/TUBE PRN (02:00)
[2017-09-04] MEDS ORDERED: MISCELLANEOUS NURSING INFORMATION XX SCH (02:00)
[2017-09-04] MEDS ORDERED: SODIUM PHOSPHATE INJ 30 MMOL in SODIUM CHLOR 0.9% 250 ML INJ 240 ML IV PRN (02:00)
[2017-09-04] MEDS ORDERED: POTASSIUM CHLOR 20 MEQ PREMIX 100 ML IV PRN ×2 (02:00)
[2017-09-04] MEDS ORDERED: RESP: ALBUTEROL 2.5 MG/IPRATROPIUM 0.5 MG NEB (PRN) INH (02:00)
[2017-09-04] MEDS ORDERED: CHLORHEXIDINE GLUCONATE 2 % 1 PACK (2 CLOTHS) TOP PRN (02:00)
[2017-09-04] MEDS ORDERED: POTASSIUM CHLOR 40 MEQ PREMIX 100 ML IV PRN ×2 (02:00)
[2017-09-04] MEDS: CHLORHEXIDINE GLUCONATE 2 % 1 PACK (2 CLOTHS) TOP SCH (02:03)
[2017-09-04] MEDS: AMIODARONE INJ 450 MG in DEXTROSE 5% IN WATE(EXCEL) INJ 241 ML IV PRN ×4 (04:54→22:38)
[2017-09-04] MEDS: INSULIN NovoLIN REGULAR SUPPLEMENTAL SCALE SQ SCH ×2 (05:31→12:00)
--- NOTE | 2017-09-04 07:27 | PD.CARD.PN ---
Subjective Subjective Remarks Feels "much better". Denies CP, dyspnea, dizziness, palpitations, nausea, abdominal pain. Objective Medications Item Value Date Time Aspirin 81 mg 09/03/17 1900 (Ecotrin Ec) DAILY/PO 09/03/17 1946 Amiodarone HCl 250 ml @ 33.33 mls/hr 09/03/17 1811 450 mg/Dextrose .Q7H31M PRN/IV 09/04/17 0454 Norepinephrine 250 ml @ 7.5 mls/hr 09/03/17 1715 Bitartrate 4 mg/ TITRATE PRN/IV 09/03/17 1849 Sodium Chloride Heparin Sodium/ 250 ml @ 8 mls/hr 09/03/17 1700 Dextrose TITRATE PRN/IV 09/03/17 1807 Current Medications Medications (Trade) Dose Ordered Sig/Anamika Route Start Time Stop Time Status Last Admin (NS Flush) 2 ml UNSCH PRN IVF 09/03/17 15:45 Heparin Sodium/ Dextrose 250 ml @ 8 mls/hr TITRATE PRN IV 09/03/17 17:00 09/03/17 18:07 Norepinephrine Bitartrate 4 mg/ Sodium Chloride 250 ml @ 7.5 mls/hr TITRATE PRN IV 09/03/17 17:15 09/03/17 18:49 (Ecotrin Ec) 81 mg DAILY PO 09/03/17 19:00 09/03/17 19:46 Amiodarone HCl 450 mg/Dextrose 250 ml @ 33.33 mls/ hr Q7H31M PRN IV 09/03/17 18:11 09/04/17 04:54 Miscellaneous Information Patient in critical care unit? Ass... Q361D .XX 09/03/17 23:00 09/03/17 23:00 (Chlorhexidine 2% Cloth) 3 pack DAILY@04 TOPICAL 09/04/17 04:00 09/08/17 04:01 09/03/17 23:17 (Chlorhexidine 2% Cloth) 3 pack UNSCH PRN TOPICAL 09/03/17 23:00 09/08/17 22:54 (Mag-Ox) 800 mg UNSCH PRN PO 09/04/17 02:00 Magnesium Sulfate 4 gm/Sodium Chloride 100 ml @ 50 mls/hr UNSCH PRN IV 09/04/17 02:00 Magnesium Sulfate 2 gm/Sodium Chloride 100 ml @ 50 mls/hr UNSCH PRN IV 09/04/17 02:00 Potassium Chloride 100 ml @ 50 mls/hr Q2H PRN IV 09/04/17 02:00 Potassium Chloride 100 ml @ 50 mls/hr Q2H PRN IV 09/04/17 02:00 Potassium Chloride 100 ml @ 50 mls/hr Q2H PRN IV 09/04/17 02:00 Potassium Chloride 100 ml @ 25 mls/hr UNSCH PRN IV 09/04/17 02:00 (K-Phos) 2,000 mg Q4H PRN PO 09/04/17 02:00 (K-Phos) 2,000 mg UNSCH PRN PO/TUBE 09/04/17 02:00 Potassium Phosphate 30 mmol/ Sodium Chloride 260 ml @ 42 mls/hr UNSCH PRN IV 09/04/17 02:00 Sodium Phosphate 30 mmol/Sodium Chloride 250 ml @ 42 mls/hr UNSCH PRN IV 09/04/17 02:00 (D50w (Vial) Inj) 25 ml UNSCH PRN IV PUSH 09/04/17 02:00 (NovoLIN R SUPPLEMENTAL SCALE) 1 Q6HR SQ 09/04/17 06:00 (Zofran Inj) 4 mg Q6H PRN IV PUSH 09/04/17 02:00 (Duoneb Neb) 1 ampule Q2HR NEB PRN INH 09/04/17 02:00 09/04/17 04:02 Miscellaneous Information 1 Q361D XX 09/04/17 02:00 09/04/17 02:00 (Chlorhexidine 2% Cloth) 3 pack Taper DAILY@04 TOP 09/04/17 04:00 08/31/18 03:59 09/04/17 02:03 (Chlorhexidine 2% Cloth) 3 pack UNSCH PRN TOP 09/04/17 02:00 (Mary-Colace) 1 tab BID PO 09/04/17 09:00 (Milk Of Magnesia Liq) 30 ml Q12H PRN PO 09/04/17 02:00 (Duoneb Neb) 1 ampule Q4HR NEB NEB 09/04/17 08:00 Vital Signs / I&O Vital Signs Date Time Temp Pulse Resp B/P (MAP) Pulse Ox O2 Delivery O2 Flow Rate FiO2 10/19/17 06:00 80 09/04/17 04:54 80 102/52 09/04/17 04:00 79 09/04/17 04:00 98.0 79 20 109/62 (78) 95 09/04/17 02:00 98.0 80 22 119/69 (86) 96 09/04/17 02:00 81 09/04/17 00:38 98 Nasal Cannula 2.00 09/04/17 00:00 90 09/04/17 00:00 98.3 90 22 130/66 (87) 96 09/03/17 23:21 98.6 91 20 120/62 (81) 96 09/03/17 23:00 90 09/03/17 23:00 98.3 90 25 124/63 (83) 94 09/03/17 23:00 98.6 90 25 126/66 (86) 95 09/03/17 23:00 09/03/17 22:29 80 115/55 09/03/17 21:12 85 20 111/58 (75) 97 Nasal Cannula 2.00 09/03/17 20:00 86 25 115/55 (75) 98 Nasal Cannula 2.00 09/03/17 19:38 82 20 110/56 (74) 97 Nasal Cannula 2.00 09/03/17 19:27 84 108/54 09/03/17 18:49 80 106/52 09/03/17 18:25 102/58 (73) 09/03/17 18:00 97/54 (68) 09/03/17 17:26 86 22 92/50 (64) 96 Nasal Cannula 2.00 09/03/17 17:02 103 22 109/52 (71) 96 Nasal Cannula 2.00 09/03/17 16:31 97 22 87/51 (63) 96 Nasal Cannula 2.00 09/03/17 16:04 110 22 79/49 (59) 96 Nasal Cannula 2.00 09/03/17 15:40 97 Nasal Cannula 2.00 09/03/17 15:30 97.7 127 24 162/94 (116) 94 I/O 09/03/17 09/03/17 09/03/17 09/04/17 09/04/17 09/04/17 07:00 15:00 23:00 07:00 15:00 23:00 Intake Total 353 ml Balance 353 ml Intake IV Total 353 ml # Voids 3 Physical Exam GENERAL: Well developed, well nourished. No acute distress. HEENT: Jugular venous pressure is normal. CHEST: Diffuse rhonchi. CARDIAC: Regular rate and rhythm without S3, S4. II/ SOHAIL base. Diminished S2. ABDOMEN: Soft, nontender, no hepatosplenomegaly. Bowel sounds present. EXTREMITIES: No clubbing, cyanosis. 2+ pretibial edema. Laboratory Laboratory Tests Test 09/03/17 15:40 09/03/17 22:49 09/04/17 00:12 White Blood Count 8.9 TH/MM3 Red Blood Count 3.71 MIL/MM3 Hemoglobin 11.0 GM/DL Hematocrit 33.1 % Mean Corpuscular Volume 89.3 FL Mean Corpuscular Hemoglobin 29.7 PG Mean Corpuscular Hemoglobin Concent 33.2 % Red Cell Distribution Width 16.0 % Platelet Count 67 TH/MM3 Mean Platelet Volume 11.5 FL Neutrophils (%) (Auto) 71.7 % Lymphocytes (%) (Auto) 16.0 % Monocytes (%) (Auto) 8.1 % Eosinophils (%) (Auto) 3.8 % Basophils (%) (Auto) 0.4 % Neutrophils # (Auto) 6.3 TH/MM3 Lymphocytes # (Auto) 1.4 TH/MM3 Monocytes # (Auto) 0.7 TH/MM3 Eosinophils # (Auto) 0.3 TH/MM3 Basophils # (Auto) 0.0 TH/MM3 CBC Comment AUTO DIFF Differential Comment AUTO DIFF CONFIRMED Platelet Estimate LOW Platelet Morphology Comment ENLARGED Prothrombin Time 11.9 SEC Prothromb Time International Ratio 1.1 RATIO Activated Partial Thromboplast Time 24.8 SEC 32.6 SEC Blood Urea Nitrogen 27 MG/DL Creatinine 1.15 MG/DL Random Glucose 176 MG/DL Total Protein 6.5 GM/DL Albumin 3.3 GM/DL Calcium Level 8.6 MG/DL Magnesium Level 2.2 MG/DL Alkaline Phosphatase 66 U/L Aspartate Amino Transf (AST/SGOT) 131 U/L Alanine Aminotransferase (ALT/SGPT) 115 U/L Total Bilirubin 0.6 MG/DL Sodium Level 141 MEQ/L Potassium Level 4.5 MEQ/L Chloride Level 108 MEQ/L Carbon Dioxide Level 21.6 MEQ/L Anion Gap 11 MEQ/L Estimat Glomerular Filtration Rate 45 ML/MIN Total Creatine Kinase 72 U/L Troponin I 0.30 NG/ML B-Type Natriuretic Peptide 787 PG/ML Lipase 192 U/L Nasal Screen MRSA (PCR) MRSA NOT DETECTED Imaging Last 24 hours Impressions Chest X-Ray 09/03/17 1538 Signed Impressions: Service Date/Time: Sunday, September 03, 2017 15:39 - CONCLUSION: 1. Stable slight blunting of the left costophrenic sulcus likely representing a small pleural effusion. There is questionable trace right pleural fluid as well. 2. Stable bilateral interstitial prominence. Regan Payne MD Assessment and Plan Problem List: (1) Syncope ICD Codes: R55 - Syncope and collapse Status: Acute Plan: Hemodynamically more stable overnight. No further syncope. Suspect patient developed atrial fibrillation with RVR in the setting of severe , resulting in hemodynamic compromise and loss of consciousness. REC continue Amiodarone to help maintain NSR (2) Paroxysmal atrial fibrillation ICD Codes: I48.0 - Paroxysmal atrial fibrillation Status: Acute Plan: Remains in NSR on IV Amiodarone. Continue same. Continue heparin drip. Overall rec anticoagulation therapy such as with Eliquis as her thromboembolic risk is at least moderately elevated. (3) Chest pain ICD Codes: R07.9 - Chest pain, unspecified Status: Acute Plan: No further atypical CP's. Subsequent cardiac enzymes pending. (4) Congestive heart failure (CHF) ICD Codes: I50.9 - Heart failure, unspecified Status: Acute Plan: Clinically stable. Suspect mild CHF precipitated by atrial fib with RVR in the setting of severe . Her chronic pedal edema probably more due to chronic deep venous insufficiency. Consider mild diuresis. (5) Aortic stenosis, severe ICD Codes: I35.0 - Nonrheumatic aortic (valve) stenosis Status: Chronic Plan: Severe by echo last month and by exam. Long discussion with patient and cement rubber yesterday. They both agree to TAVR, but in [place]. Rec referral to TAVR program in [place] after discharge. Code Status full code Discussed Condition With patient Problem Qualifiers (1) Syncope: Qualified Codes: R55 - Syncope and collapse (2) Chest pain: Qualified Codes: R07.9 - Chest pain, unspecified (3) Congestive heart failure (CHF): Qualified Codes: I50.9 - Heart failure, unspecified Cirilo Sidhu MD Sep 04, 2017 07:27
[2017-09-04 07:56] LABS: HEMATOCRIT 32.1 % (35.0-46.0); MEAN CELL VOLUME 90.6 FL (80.0-100.0); MEAN CORPUSCULAR HEMOGLOBIN 29.7 PG (27.0-34.0); MEAN CORPUSCULAR HGB CONC 32.7 % (32.0-36.0); RED BLOOD COUNT 3.55 MIL/MM3 (4.00-5.30); RED CELL DISTRIBUTION WIDTH 16.4 % (11.6-17.2); WHITE BLOOD COUNT 8.8 TH/MM3 (4.0-11.0)
[2017-09-04] MEDS: RESP: ALBUTEROL 2.5 MG/IPRATROPIUM 0.5 MG NEB (SCH) NEB ×4 (08:30→19:52)
[2017-09-04 08:32] LABS: BICARBONATE 23.8 MEQ/L (21.0-32.0); POTASSIUM 3.9 MEQ/L (3.5-5.1)
[2017-09-04 08:51] LABS: REVIEW FLAG AUTO DIFF
[2017-09-04] MEDS: DOCUSATE SODIUM 50 MG/SENNA 8.6 MG TAB PO SCH ×2 (09:00→21:46)
[2017-09-04] MEDS: ASPIRIN EC 81 MG TABEC PO SCH (09:05)
--- NOTE | 2017-09-04 11:02 | HHI.CCPN ---
Subjective Remarks/Hospital Course DUPLICATE NOTE Objective Vital Signs Date Time Temp Pulse Resp B/P (MAP) Pulse Ox O2 Delivery O2 Flow Rate FiO2 09/04/17 09:30 93 Nasal Cannula 6.00 09/04/17 06:00 80 09/04/17 04:54 102/52 09/04/17 04:00 98.0 20 Result Diagram: 09/04/17 0616 09/04/17 0616 Imaging Last Impressions Chest X-Ray 09/03/17 1538 Signed Impressions: Service Date/Time: Sunday, September 03, 2017 15:39 - CONCLUSION: 1. Stable slight blunting of the left costophrenic sulcus likely representing a small pleural effusion. There is questionable trace right pleural fluid as well. 2. Stable bilateral interstitial prominence. MD Regan Beltran Sinoj K. MD Sep 04, 2017 11:02
--- NOTE | 2017-09-04 11:25 | HHI.CCPN ---
Subjective Remarks/Hospital Course This is an 86-year-old female with a history of severe aortic stenosis who was deciding whether or not she wanted to pursue transcatheter aortic valve replacement as an outpatient who was recently admitted to an outside hospital for an STEMI secondary to her aortic stenosis who presents with a few day history of worsening shortness of breath and exertional dyspnea and was found to be in new onset A. fib RVR along with hypotension, lactic acidosis, and positive troponins. She denies overt chest pain. Does state she feels very fatigued and unable to do the same things that she was able to do earlier. Over the past few months she's had a fairly rapid decline in functional status and her longterm facility. She does say that her cullet crusher and washer was talking to her about transcatheter aortic valve replacement, she does not know if she wants to undergo this. She has idiopathic cytopenic purpura and is followed by a resizer operator. In the emergency department, and amiodarone infusion was started along with norepinephrine to maintain coronary perfusion pressure. SUBJ 09/04/17: Remains on Amiodarone and IV heparin. Complaints of intermittent chest pain. Troponin peaked at 23. Getting cardiac catheterization by Dr. Sidhu today. Patient is requesting PO TAVR eval at [place]. Objective Vital Signs Date Time Temp Pulse Resp B/P (MAP) Pulse Ox O2 Delivery O2 Flow Rate FiO2 09/04/17 09:30 93 Nasal Cannula 6.00 09/04/17 06:00 80 09/04/17 04:54 102/52 09/04/17 04:00 98.0 20 Result Diagram: 09/04/17 0616 09/04/17 0616 Imaging Last Impressions Chest X-Ray 09/03/17 1538 Signed Impressions: Service Date/Time: Sunday, September 03, 2017 15:39 - CONCLUSION: 1. Stable slight blunting of the left costophrenic sulcus likely representing a small pleural effusion. There is questionable trace right pleural fluid as well. 2. Stable bilateral interstitial prominence. Regan Payne MD Objective Remarks gen: frail elderly lady in mild distress, lying in bed heent: perrl. mucous membranes moist neck: distended neck veins. trachea midline chest: mildly tachypneic. equal chest rise. Bilateral expiratory wheezes cv: HR in the 80s, sinus rhythm. Systolic murmur at the left sternal border abd: soft, nontender, nondistended. no guarding extr: 1+ pitting edema. left mendes with skin tear, barrier dressing applied neuro: AOx3. no focal deficits. follows commands x 4. A/P Assessment and Plan Assessment: 86yF with severe aortic stenosis, recent NSTEMI, myocardial ischemia from LVH, and now new-onset atrial fibrillation with associated cardiogenic shock, CHF exacerbation secondary to valvulopathy, and no with recurrent NSTEMI. Critically ill. I have talked at length with the patient about her need to continue work-up for TAVR. If she does not elect to undergo TAVR, she would likely be a good Hospice candidate, as she has had multiple recent NSTEMI secondary to severe aortic stenosis, and her functionality is rapidly declining in her SNF. Her median survival is < 1 year at best. She said she would like to talk again to Dr. Bowman and re-address the possibility of TAVR. Plan: New-onset atrial fibrillation - now back in NSR - continue amio drip. will convert this to PO amio probably after cath - continue heparin drip NSTEMI - secondary to severe aortic stenosis and demand ischemia from CAD and LVH - Troponin peaked at 23 today. Use morphine and nitroglycerin when necessary - heparin drip. Cardiac catheterization today - ASA daily, DAPT after cath - Hypotensive, will not tolerate beta blockers Severe aortic stenosis - high risk for open AVR - TAVR eval, patient wants to do it in [place] - patient needs to decide if she wants to undergo elective TAVR in the future - goal HR < 90, maintain adequate coronary perfusion pressure Cardiogenic Shock - secondary to tachycardia and afib - wean levophed for map > 65 mmHg. Currently off Acute kidney injury - unknown baseline Cr - Repeat CXR, Diuresis is CHF - renal injury likely secondary to cardiogenic shock from tachycardia. - trend Cr, close monitoring of UOP, strict I/Os Acute hypoxemia CHF exacerbation secondary to valvular heart disease - wean o2 by NC for spo2 > 90% - Diuresis as needed: now that she is back in sinus rhythm, - prn nebs. Left leg laceration - wound care consult. SCDs, heparin drip Remain in ICU. Critically ill on vasopressors, in cardiogenic shock with recurrent NSTEMI. Critical Care time: 35 minutes, exclusive of separately billable procedures. Cath today Payam Spears MD Sep 04, 2017 11:25
[2017-09-04] MEDS ORDERED: diphenhydrAMINE HCL 50 MG CAP PO SCH (11:45)
[2017-09-04] MEDS ORDERED: DIAZEPAM 5 MG TAB PO SCH (11:45)
[2017-09-04] MEDS ORDERED: MORPHINE SULFATE 4 MG/ML INJ IV PUSH PRN (11:45)
--- NOTE | 2017-09-04 11:53 | RADRPT ---
EXAM DATE/TIME: 09/04/2017 11:27 [facility] COMPARISON: CHEST SINGLE AP, September 03, 2017, 15:39. INDICATIONS : Respiratory disease MEDICAL HISTORY : Deep venous thrombosis. Hypercholesterolemia. HypClaustrophobia. Thrombocytopenia. Measles.ertension. Cataracts, Glaucoma. Bilateral pulmonary embolism. Asthma. Dyspnea. Wheezing. Endometriosis SURGICAL HISTORY : Hysterectomy. IVC Filter placement. Appendectomy. Bilateral cataract surgery. Hiatal hernia repair. R ight elbow repair. Left wrist repair. Right radial headreplacement. Diskectomy. Blood transfusion ENCOUNTER: Subsequent ACUITY: 2 days PAIN SCORE: 0/10 LOCATION: chest FINDINGS: R. excellent is enlarged with indistinct central pulmonary vasculature. Slightly worsening small left and trace right pleural effusions. Remainder of exam is unchanged. CONCLUSION: 1. Cardiomegaly with worsening mild positive fluid bones. 2. Slightly progressed trace right and small left pleural effusions. Manoj Drew MD on September 04, 2017 at 11:50 Board Certified Radiologist. This report was verified electronically.
--- NOTE | 2017-09-04 12:26 | EKG ---
Date Performed: 09/03/2017 Time Performed: 15:35:14 PTAGE: 86 years EKG: Underlying rhythm is atrial fibrillation with rapid ventricular response Marked ST depressi on, indicating global ischemia, which is a severe change from the prior tracing Clinical correlation needed. ABNORMAL ECG PREVIOUS TRACING : 08/13/2017 02.51 DOCTOR: Martinez Smith Interpretating Date/Time 09/04/2017 12:25:19
--- NOTE | 2017-09-04 12:27 | EKG ---
Date Performed: 09/04/2017 Time Performed: 07:22:31 PTAGE: 86 years EKG: Normal Sinus rhythm Mild ST depression, which is tremendously improved from the prior tracing. ABNORMAL ECG PREVIOUS TRACING : 09/03/2017 16.04 Atrial fibrillation is no longer present from the prior tra cing. DOCTOR: Martinez Smith Interpretating Date/Time 09/04/2017 12:26:43
--- NOTE | 2017-09-04 12:27 | EKG ---
Date Performed: 09/03/2017 Time Performed: 16:04:26 PTAGE: 86 years EKG: ATRIAL FIBRILLATION WITH RAPID VENTRICULAR RESPONSE VOLTAGE CRITERIA FOR LVH MARKED ST DEPR ESSION, CONSIDER SUBENDOCARDIAL INJURY ABNORMAL ECG PREVIOUS TRACING : 09/03/2017 15.35 Ventricular rate is a little slower; otherwise, no change f rom the prior tracing. DOCTOR: Martinez Smith Interpretating Date/Time 09/04/2017 12:25:44
[2017-09-04] MEDS ORDERED: ALBUMIN 25% INJ 50 ML IV ONE (12:45)
[2017-09-04 12:55] LABS: APTT (PATIENT) 36.4 SEC (24.3-30.1)
[2017-09-04] MEDS ORDERED: POTASSIUM CHLORIDE 25 MEQ EFFERVESCENT TAB PO ONE (13:00)
[2017-09-04] MEDS ORDERED: FUROSEMIDE 20 MG/2 ML VIAL IV PUSH ONE (13:00)
[2017-09-04 13:06] LABS: BACTERIA, URINE MANY /hpf; BLOOD, URINE NEG (NEG); COMMENT (UR) CATH-CULTURE IND; CULTURE IF INDICATED CATH CULTURE IND; GLUCOSE,URINE NEG (NEG); KETONE, URINE NEG (NEG); MUCUS URINE FEW /lpf (OCC); NITRITE,URINE POS (NEG); PH, URINE 5.5 (5.0-8.5); SQUAMOUS EPITHELIAL CELL URINE <1 /hpf (0-5); URINE COLOR YELLOW (YELLW/STRAW)
[2017-09-04] MEDS: SODIUM CHLOR 0.9% 1000 ML INJ 1,000 ML IV SCH (13:22)
[2017-09-04 13:29] LABS: CKMB 38.5 NG/ML (0.5-3.6)
[2017-09-04] MEDS ORDERED: PROPOFOL 500 MG/50 ML INJ 50 ML ONE ×3 (14:15→19:05)
[2017-09-04] MEDS ORDERED: NOREPINEPHRINE-DEXTROSE DRIP 250 ML IV ONE (14:16)
--- NOTE | 2017-09-04 14:38 | PD.PROCEDR ---
Procedure Note Procedure Emergency intubation INTUBATION: The patient was put in optimal position for the procedure. DL with Mac 4 blade Grade 1 view. Rapid sequence intubation was initiated by me using 20 milligrams of etomidate IV and 50 milligrams of Rocuronium IV. The patient was intubated with a 7.5 cuffed endotracheal tube. Tube placement was confirmed by visualization of the tube and balloon passing through the cords, capnometry and subsequent chest x-ray. Breath sounds were equal and well aerated bilaterally postintubation. No breath sounds over stomach. Patient tolerated procedure well. Payam Spears MD Sep 04, 2017 14:38
[2017-09-04] MEDS ORDERED: MIDAZOLAM 100 MG/100 ML INJ 100 ML IV PRN (14:45)
[2017-09-04] MEDS ORDERED: fentaNYL DRIP 250 ML IV PRN (14:45)
--- NOTE | 2017-09-04 15:03 | RADRPT ---
EXAM DATE/TIME: 09/04/2017 14:38 [facility] COMPARISON: CHEST SINGLE AP, September 04, 2017, 11:27. INDICATIONS : ET tube placement. MEDICAL HISTORY : Deep venous thrombosis. Hypercholesterolemia. HypClaustrophobia.Thrombocytopenia. Measles.ertension. Cataracts, Glaucoma. Bilateral pulmonary embolism. Asthma. Dyspnea. Wheezing. Endometriosis SURGICAL HISTORY : pulmonary embolism. Asthma. Dyspnea. Wheezing. Endometriosis surgery. Hiatal hernia repair. Right elb ow repair. Left wrist repair. Right radialheadreplacement. Diskectomy. Blood transfusion ENCOUNTER: Subsequent ACUITY: 3 days PAIN SCORE: Non-responsive. LOCATION: Bilateral chest FINDINGS: Status post placement of an endotracheal tube. ET tube appears in good position. There is no pneumoth orax. There continues to be bilateral pulmonary infiltrates suggestive of pulmonary edema. The heart size is enlarged but stable. The bony structures are stable. CONCLUSION: 1. ET tube in good position. 2. No pneumothorax. Soto Sheppard MD on September 04, 2017 at 15:00 Board Certified Radiologist. This report was verified electronically.
[2017-09-04 15:05] LABS: BLOOD GAS BASE EXCESS -1.7 mmol/L (-2-2); BLOOD GAS CARBOXYHEMOGLOBIN 1.5 % (0-4); BLOOD GAS HCO3 22 mmol/L (22-26); BLOOD GAS METHEMOGLOBIN 1.2 % (0-2); BLOOD GAS O2 HGB SATURATION 96 % (90-100); BLOOD GAS OXYGEN CONTENT 14.5 Vol % (12.0-20.0); BLOOD GAS PCO2 36 mmHg (38-42); BLOOD GAS PO2 115 mmHg (61-120); BLOOD GAS TOTAL HGB 10.6 G/DL (12.0-16.0); CRITICAL VALUE NO; TEMP CORR TO 98.6
[2017-09-04 15:06] LABS: DRAW SITE RT RADIAL; FIO2 45 %; NUMBER OF ARTERIAL PUNCTURES 1; OXYGEN DEVICE VENTILATOR; STAT YES; ULNAR PULSE PRESENT; VENT SETTINGS AC500/16/PEEP+8
[2017-09-04] MEDS ORDERED: HEPARIN-NS/PF INJ 1,000 ML ONE (15:37)
[2017-09-04] MEDS ORDERED: SODIUM CHLORID 0.9% 500 ML INJ 500 ML ONE (15:38)
[2017-09-04] MEDS ORDERED: MIDAZOLAM HCL 5 MG/5 ML VIAL ONE (15:45)
[2017-09-04] MEDS ORDERED: SODIUM CHLOR 0.9% 1000 ML INJ 1,000 ML IV SCH (16:09)
[2017-09-04] MEDS ORDERED: SODIUM CHLOR 0.9% 250 ML INJ 250 ML IV PRN (16:15)
[2017-09-04] MEDS ORDERED: ATROPINE SULFATE 1 MG/ML VIAL IV PRN (16:15)
--- NOTE | 2017-09-04 16:42 | CATHPROC ---
[employer] HIS Report Study Information Study Number Admission Scheduled Start Study Start [id number] Sep 03 2017 5:15PM 09/04/2017 Sep 04 2017 3:05PM [facility] Cardiac Catheterization Admit Source Facility Department Emergency department [facility] - Wind Plant Manager Physician and Clinical Staff Initial Cirilo Kulkarni Waiter Waitress Jeanie Sandoval RN Waiter Waitress Pooja Bell BSRN Other cathlab, cathlab Recorder Brigida Rodriguez,RT(R) Scrub Laura Johnson,CONCESSION SUPERVISOR TECH2 Procedures Performed Procedure Location (Site) Vessel Name Coronary Angiograms LCA Left Coronary Coronary Angiograms RCA Right Coronary L Heart Cath Equipment Time Power Plant Supervisor Description Size Mfg Part Number Used/Scraped TRANSDUCER, TRUWAVE [id number] 15:39 FRY SÁNCHEZ * Used W/STOCKCOCK *[id number] 16:00 [employer] MEDICAL VASCADE, FR6 CLOSURE SYSTEM FR 6\7 Used *[id number] *[id number] *[id number] [id number] *[id number] 15:39 [employer] PACK, CCL CUSTOM * Used *[id number] 15:39 [employer]LINE PACER PEN, SKIN DUAL W/ RULER * Used *[id number] 15:39 [employer] MEDICAL SHEATH, FR6.5 PRELUDE 11CM FR 6.5 038ACT Used *[id number] 15:47 [employer] MEDICAL SHEATH, FR6.5 PRELUDE 11CM FR 6.5 038ACT Used *[id number] 15:39 [employer] MEDICAL WIRE, 3MMJ .035 180CM 180CM Used *[id number] 15:57 [employer] MEDICAL WIRE, STRAIGHT TIP .035 * Used *[id number] 15:39 [employer]AM[employer] MANIFOLD, 4 PORT * Used *[id number] 15:39 [employer] OMNIPAQUE, 350 MG, 150ML 150ML [id number] Used [id number] 15:39 [employer] MEDICAL BLANKET,WARM AIR CCL * Used *[id number] History: Current Medications Medication Dosage/Unit Route Frequency Last Date/Time Taken ASA Coumadin CARDIZEM ATACAND History: Allergies Allergy Reaction No Known Allergies History: Risk Factors Family History of Hypertension Dyslipidemia Previous ND Previous Heart Failure Premature CAD Yes Yes No Yes Yes Prior Valve Prior PCI Prior CABG Surgery No No No Cerebrovascular Peripheral Artery Chronic Lung On Dialysis Diabetes Disease Disease Disease No Yes Yes Yes No History: Stress Tests Stress or Imaging Studies Performed No History: Other Current Smoker No Labs Hgb (g/dl) Hct (%) WBC (l/cumm) Platelets (thousands) 11.60-17.00 35.00-51.00 4.00-11.00 150.00-450.00 10.5 32.1 8.8 95 Glucose (mg/dl) BUN (mg/dl) Creatinine (mg/dl) BUN:Creatinine (1:x) 74.00-106.00 7.00-18.00 0.50-1.30 10.00-20.00 118 23 0.8 28.8 Na (meq/l) K (meq/l) 136.00-145.00 3.50-5.10 140 3.9 INR (PTT:PT) 0.90-1.10 1.1 Troponin I (ng/ml) CPK (u/l) CPK-MB (ng/ML) 0.02-0.05 26.00-308.00 0.50-3.60 22.9 72 Not Drawn Medication Medication Total Dose (Bolus/Oral) Medication Total Dosage/Unit 1% XYLOCAINE 20 mL PROPOFOL 5 mcg/kg/min VERSED 5 mg Medications (Bolus/Oral) Medication Time Given Dosage/Unit Administered By Reason PROPOFOL 09/04/2017 3:15:35 PM 5 mcg/kg/min Patient arrived on 5 mcg/kg/min PROPOFOL in Right shoulder via Peripheral IV. Pump/Drip Flow = 2.4 ml /hr using [Solution Name] with a concentration of 1000 mg in 100 ml. 1% XYLOCAINE 09/04/2017 3:46:57 PM 20 mL Cirilo Sidhu 20 mL 1% XYLOCAINE given in lab by Cirilo Sidhu in Right Groin via Subcutaneous. VERSED 09/04/2017 3:47:17 PM 4 mg Pooja Bell 4 mg VERSED given in lab by Pooja Bell BSRN in Left Antecubital via Peripheral IV. Ordered by Cirilo Sidhu. VERSED 09/04/2017 4:09:00 PM 1 mg Jeanie Sandoval 1 mg VERSED given in lab by Jeanie Sandoval, RN in Left Antecubital via Peripheral IV. Ordered by Cirilo Saunders. Medication (Drip) Medication Time Given Dosage/Unit Concentration/Unit Diluent (ml) Solution Amiodarone Drip 09/04/2017 3:15:00 PM 16.6 mL/hr 450 mL 250 D5W Patient arrived on 16.6 mL/hr Amiodarone Drip in Right Hand via Peripheral IV. Pump/Drip Flow = 9.22 ml/hr using D5W with a concentration of 450 mL in 250 ml. HEPARIN DRIP 09/04/2017 3:15:00 PM 900 units/hr 73638 units 250 D5W Patient arrived on 900 units/hr HEPARIN DRIP given by marie salazar in Left Antecubital via Periph eral IV. Pump/Drip Flow = 9 ml/hr [place] D5[place] [address] units in 250 ml. HEPARIN DRIP STOPPED 09/04/2017 4:14:35 PM 900 units/hr 0 900 units/hr HEPARIN DRIP STOPPED given in lab by Jeanie Sandoval, ROYCE. Pump/Drip Flow = 0 ml/hr using [Solution Name]. Ordered by Cirilo Sidhu. LEVOPHED 09/04/2017 3:15:00 PM 4 mcg/min 4 mg 250 D5W Patient arrived on 4 mcg/min LEVOPHED given by cathlab cathlab in Right Hand via Central IV. Pump/Dr ip Flow = 15 ml/hr using D5W with a concentration of 4 mg in 250 ml. Initial Case Assessment Cardiovascular HR Rhythm NIBP 121 tachy 153/93 Circulatory - Right Pulses Dorsalis Pedis Femoral 2 2 Scale (0,1,2,3,4,d) Circulatory - Left Pulses Dorsalis Pedis Femoral 2 2 Scale (0,1,2,3,4,d) Neurological State Unresponsive Respiration - General Respiration Rate SpO2 (%) (B/min) 25 97 Respiration - Ventilator Type Ventilator Type Intubation Type univent ET(oral) Respiration - Ventilator Settings TV (ml) IMV (L) FIO2 (%) 500 16 100 Chronological Log Time Study Chronological Log 15:14:02 Patient arrived via Bed. Patient arrived on 16.6 mL/hr Amiodarone Drip in Right Hand via Peripheral IV. Pump/Drip Flow = 9.22 ml/hr using 15:15:00 D5W with a concentration of 450 mL in 250 ml. Patient arrived on 4 mcg/min LEVOPHED given by cathlab, cathlab in Right Hand via Central IV. P ump/Drip Flow = 15 15:15:00 ml/hr using D5W with a concentration of 4 mg in 250 ml. Patient arrived on 900 units/hr HEPARIN DRIP given by cathlab, cathlab in Left Antecubital via Peripheral IV. Pump/Drip 15:15:00 Flow = 9 ml/hr [place] [address] units in 250 ml. Patient arrived on 5 mcg/kg/min PROPOFOL in Right shoulder via Peripheral IV. Pump/Drip Flow = 2.4 ml/hr using 15:15:35 [Solution Name] with a concentration of 1000 mg in 100 ml. 15:23:00 Propofol drip to 10 mcg/kg/min 15:29:44 Patient Name, D.O.B, / Armband Verified By R.N. 15:29:46 Consent signed by the physician and the patient and verified by the Wind Plant Manager staff. 15:29:47 Pre-op and post- op instructions given; patient acknowledges understanding of instructions. 15:30:06 Patient has been NPO for More than 6Hrs. 15:30:20 Patient Warmer Placed on the Table. 15:30:21 Disposable Defibrillator Pads Placed On Patient. 15:30:23 Dav Prominences Protected 15:30:28 A # 20 IV was noted in the Antecubital (right). Grade = 0 IV pulled out, replaced with #20 in right upper arm 15:30:28 A # 20 IV was noted in the Antecubital (left). Grade = 0 15:30:28 A # 20 IV was noted in the Hand (right). Grade = 0 15:30:29 A # 20 IV was noted in the Upper Arm (right). Grade = 0 Assessment: Initial Case, UM=295 BPM, Rhythm=tachy, KZHW=624/93 mmhg Right Pulses: Krish Ped=2, Femoral=2 Left Pulses: Krish Ped=2, Femoral=2 15:30:39 Neurological: State=Unresponsive Respiration: Resp=25 B/min, SpO2=97 %, Ventilator type=univent, Type=ET(Oral), KP=647 mL, IMV=1 6 L, PUK7=990 % Vitals capture started with the following parameters, Patient=Adult, Interval=5 min, Initial Pr jmgqxm=684 mmHg, 15:35:59 Deflation Rate=5 mmHg, Cuff placed on Left Arm 15:36:45 VO=204 bpm, KOHQ=629/93 mmhg, SpO2=95.0 %, Resp=26 B/min 15:41:40 RP=456 bpm, KLYS=598/94 mmhg, SpO2=97 %, Resp=27 B/min 15:41:57 Reference ECG taken 15:42:26 Pressure channel 1 zeroed. 15:43:31 MD arrived. 15:45:00 Propofol drip to 20 mcg/kg/min Time Out. Correct patient, correct procedure, correct physician, power injector loaded, or not loaded with contrast with 15:46:02 surgical team present. Time Out Concurred by MD and individual staff in procedure. 15:46:43 DL=995 bpm, PKTN=743/83 mmhg, SpO2=99.0 %, Resp=27 B/min 15:46:53 Case Start 15:46:57 20 mL 1% XYLOCAINE given in lab by Cirilo Sidhu in Right Groin via Subcutaneous. 15:47:17 4 mg VERSED given in lab by Pooja Bell BSRN in Left Antecubital via Peripheral IV. O rdered by Cirilo Sidhu. 15:48:59 Access site was Right Femoral Vein. 15:49:09 A SHEATH, FR6.5 PRELUDE 11CM FR 6.5 was advanced into the Fem Vein (right) using the Percut aneous technique. 15:49:21 Access site was Right Femoral Artery. 15:49:25 A SHEATH, FR6.5 PRELUDE 11CM FR 6.5 was advanced into the Fem Art (right) using the Percuta neous technique. A JL 4.0 INFINITI CATHETER FR 6 was advanced over a wire. OMNIPAQUE, 350 MG, 150ML 150ML was us ed for 15:49:56 injections. 15:51:03 The LCA was injected and visualized at various angles. OMNIPAQUE, 350 MG, 150ML 150ML used . 15:51:38 IM=216 bpm, MVNC=415/64 mmhg, SpO2=96.0 %, Resp=25 B/min 15:51:52 Catheter was removed A 3DRC INFINITI CATHETER FR 6 was advanced over a wire. OMNIPAQUE, 350 MG, 150ML 150ML was used for 15:51:54 injections. 15:52:58 The RCA was injected and visualized at various angles. OMNIPAQUE, 350 MG, 150ML 150ML used . 15:54:22 Catheter was removed A MPA-2 INFINITI CATHETER FR 6 was advanced over a wire. OMNIPAQUE, 350 MG, 150ML 150ML was use d for 15:54:25 injections. 15:56:37 KW=333 bpm, YUTM=021/75 mmhg, SxL8=590.0 %, Resp=29 B/min 15:56:45 Catheter was removed A JL 4.0 INFINITI CATHETER FR 6 was advanced over a wire. OMNIPAQUE, 350 MG, 150ML 150ML was us ed for 15:56:47 injections. Recorded Pressure: Ao, IM=433, Condition=Condition 1 15:57:26 (Aorta) Ao 116/68/89 15:58:00 Catheter was removed 15:58:09 An injection in the Fem Art (right) was made through the SHEATH, FR6.5 PRELUDE 11CM FR 6.5 . 15:58:37 VASCADE, FR6 CLOSURE SYSTEM FR 6\7 placement in the Fem Art (right) 15:59:59 Case End 16:00:03 Sterile dressing applied to site 16:00:04 No case complications noted. 16:00:05 Cine recording checked. 16:00:21 Bedside Report will be given. 16:00:25 Contrast Scanned 16:00:28 A Left Heart Cath was performed. 16:01:43 OW=043 bpm, WGBD=767/62 mmhg, JfN1=083.0 %, Resp=25 B/min 16:06:40 GC=079 bpm, JVPG=501/71 mmhg, SpO2=99.0 %, Resp=24 B/min 16:09:00 Propofol drip to 30 mcg/kg/min 16:09:00 1 mg VERSED given in lab by Jeanie Sandoval, RN in Left Antecubital via Peripheral IV. Ord ered by Cirilo Sidhu. 16:11:41 TI=715 bpm, UCKL=097/66 mmhg, SpO2=99.0 %, Resp=24 B/min 900 units/hr HEPARIN DRIP STOPPED given in lab by Jeanie Sandoval, RN. Pump/Drip Flow = 0 ml/h r using [Solution 16:14:35 Name]. Ordered by Cirilo Sidhu. 16:16:36 KS=286 bpm, RPIL=941/58 mmhg, NxB9=741.0 %, Resp=30 B/min 16:17:29 Venous Sheath removed; pressure applied to access site. 16:21:37 YV=303 bpm, NIBP=92/61 mmhg, JdO8=580 %, Resp=17 B/min 16:23:20 Levophed drip to 5 mcg/min 16:26:36 YI=151 bpm, YIFV=354/60 mmhg, NiD5=382 %, Resp=17 B/min 16:35:00 Patient moved to [facility] End Study - Contrast Media Used In Study Contrast Total Opened (mL) Total Used (mL) Total Wasted (mL) Omnipaque 60 60 0 End Study - Maximum Contrast Load Max Contrast Load (mL) 500.0 End Study - Radiation Exposure Fluoro Time (minutes) 2.6 End Study - Patient Disposition Complications Transferred To Interventional Outcome No Critical Care Bed No attempt made
--- NOTE | 2017-09-04 17:21 | MA ---
cc: FELIX LEZAMA M.D. DATE: 09/04/2017 PROCEDURE Selective coronary angiography. PROCEDURE NOTE The patient was brought to the cardiac catheterization laboratory in a fasting state after having signed informed consent. The right groin was prepped and draped as per policy and anesthetized with 1% lidocaine. Arterial access was obtained via the right femoral artery and a 6-Martiniquais sheath placed. Coronary arteriography was performed using 6-Martiniquais Shanita left 4.0 and right progressive catheters. We attempted to cross the aortic valve briefly with a multipurpose catheter and a straight tipped wire without success. There were no apparent immediate complications. CORONARY ARTERIOGRAPHY The left main has 20% mid to distal disease. The left anterior descending is a fairly large vessel giving rise to a tiny diagonal. In the proximal left anterior descending there is up to 20% stenosis. The mid left anterior descending is normal. There are minimal luminal irregularities in the distal left anterior descending. The left circumflex is a small to medium sized vessel giving rise to a fairly large branching tortuous obtuse marginal. There may be up to 20% proximal left circumflex stenosis and 30% proximal obtuse marginal disease. The right coronary artery is a tortuous dominant vessel with diffuse disease up to 15% in the proximal to mid portions and then 60% tubular stenosis just prior to the takeoff of the posterior descending artery which may have 30% ostial stenosis. CONCLUSION 1. Overall mild to moderate three-vessel coronary artery disease with no definite high-grade stenosis. 2. Known severe aortic stenosis. MD JONATHAN Altamirano/renay /4:05 PM /5:10 PM [facility]
--- NOTE | 2017-09-04 17:49 | PD.PROCEDR ---
Central Line Procedure REASON FOR PROCEDURE Central venous access PROCEDURE PERFORMED Central line placement: L subclavian central line CONSENT Informed consent for procedure was obtained. ANESTHESIA Local injection of 1% Lidocaine DESCRIPTION OF THE PROCEDURE The patient was placed in supine, mild Trendelenburg position. The area was exposed and cleansed with ChloraPrep, times two. Large sterile drape was used to cover the patient, with the site exposed, under sterile conditions including cap, face mask, sterile gown, and sterile gloves. On single attempt, the introducer needle was inserted with negative pressure in syringe and venous flash was obtained. The guide wire was then advanced without any restriction and the needle was removed. The dilator was used without any complications. Using Seldinger technique the 20 cm triple lumen catheter was advanced over the guide wire to a depth of 18 centimeters. The guide wire was removed. All ports were aspirated with dark venous blood return and flushed easily with sterile saline. All ports were capped. Antibiotic disc was placed around central line at puncture site. The central line was secured to the skin with two interrupted 2.0 silk sutures. The area was bandaged with sterile see- through central line bandage. COMPLICATIONS: No apparent complications ESTIMATED BLOOD LOSS: Less than 1 cc. Payam Spears MD Sep 04, 2017 17:49
--- NOTE | 2017-09-04 18:03 | RADRPT ---
EXAM DATE/TIME: 09/04/2017 17:48 [facility] COMPARISON: CHEST SINGLE AP, September 04, 2017, 14:38. INDICATIONS : Evaluate central line placement MEDICAL HISTORY : Deep venous thrombosis. Hypercholesterolemia HypClaustrophobia.Thrombocytopenia. Measles.ertension. C ataracts,Glaucoma. Bilateral pulmonary embolism. Asthma. Dyspnea. Wheezing.Endometriosis SURGICAL HISTORY : pulmonary embolism. Asthma. Dyspnea. Wheezing. Endometriosis surgery Hiatal hernia repair. Right elbo w repair. Left wrist repair. Rightradialheadreplacement. Diskectomy. Blood transfusion ENCOUNTER: Subsequent ACUITY: 3 days PAIN SCORE: Non-responsive. LOCATION: chest FINDINGS: There is placement of a left subclavian venous catheter terminating in the superior vena cava with no pneumothorax or complication. ET tube remains above the tyra and cardiopulmonary status is stable CONCLUSION: Stable chest other than placement of left subclavian venous catheter terminates vena cava with no pne umothorax or complication Rico Rodriguez MD on September 04, 2017 at 18:00 Board Certified Radiologist. This report was verified electronically.
[2017-09-04] MEDS ORDERED: CHLORHEXIDINE 0.12% (ORAL KIT) 15 ML CUP MT SCH (20:00)
--- NOTE | 2017-09-04 20:49 | MG ---
cc: ANA AGUAYO Lab No: Date: 09/04/17 Age: Sex: F Race: REFERRING PHYSICIAN Dr. Spears EEG TECHNIQUE This is a 17 channel EEG. DESCRIPTION The back rhythm reveals a moderate slowing predominately in the theta frequency roughly 5-6 Hz, amplitude ranges from 10-20 microvolts. There are no lateralizing features present. There are no epileptiform discharges present. There is rare muscle artifact. On a couple of occasions the slowing became more prominent in the delta frequency but the majority of the rhythm is in the theta range. IMPRESSION The study is slow, is consistent with a moderate encephalopathy but there are no underlying epileptiform discharges. MD TONJA Moore/SB /7:30 PM /8:40 PM
[2017-09-05] VITALS: BP 105/58; PULSE 112; RESP 16; TEMP 98.2; O2SAT 95
[2017-09-05] MEDS: INSULIN NovoLIN REGULAR SUPPLEMENTAL SCALE SQ SCH
[2017-09-05] MEDS: RESP: ALBUTEROL 2.5 MG/IPRATROPIUM 0.5 MG NEB (SCH) NEB ×2 (00:11→02:20)
[2017-09-05 00:35] VITALS: O2SAT 95
[2017-09-05 02:00] VITALS: PULSE 109
[2017-09-05] MEDS: CHLORHEXIDINE GLUCONATE 2 % 1 PACK (2 CLOTHS) TOP SCH (02:29)
[2017-09-05] MEDS: CHLORHEXIDINE GLUCONATE 2 % 1 PACK (2 CLOTHS)(taper/protocol) TOPICAL SCH (02:30)
[2017-09-05 03:00] VITALS: BP 95/52; PULSE 106; RESP 16; O2SAT 96
[2017-09-05] MEDS: SODIUM CHLOR 0.9% 1000 ML INJ 1,000 ML IV SCH (03:04)
[2017-09-05 03:05] VITALS: O2SAT 96
[2017-09-05 04:04] VITALS: BP 85/52; PULSE 91; RESP 14; O2SAT 91
--- NOTE | 2017-09-05 05:17 | PD.PROCEDR ---
Procedure Note Procedure CPR procedure note Presenting rhythm: PEA Event Details: Patient with critical aortic stenosis acutely decompensated, bradycardia and PEA arrest. CPR immediately started. Please see separate code documentation for details. ROSC was obtained. Procedure Description: Arrived at [facility]. Followed ACLS guidelines. See code sheet for details. I was personally present for the entire CPR event. Norman Knight MD Sep 05, 2017 05:17
[2017-09-05] MEDS ORDERED: EPINEPHrine HCL (1:10,000) 1 MG/10 ML SYRINGE IV ONE (05:21)
[2017-09-05] MEDS ORDERED: IOHEXOL 350 MG/ML 100 ML BTL (for Cath Lab) OTHER ONE (05:21)
--- NOTE | 2017-09-05 06:17 | RADRPT ---
EXAM DATE/TIME: 09/05/2017 04:28 [facility] COMPARISON: CHEST SINGLE AP, September 04, 2017, 17:48. INDICATIONS : Respiratory Failure post STEMI MEDICAL HISTORY : Deep venous thrombosis. Hypercholesterolemia. Bilateral Pulmonary Embolism SURGICAL HISTORY : Hiatal hernia repair, Right elbow repair, Right radial head replacement ENCOUNTER: Subsequent ACUITY: 3 days PAIN SCORE: Non-responsive. LOCATION: Bilateral chest FINDINGS: A single view of the chest demonstrates cardiomegaly. Bibasilar densities and small pleural effusions . Endotracheal tube and left subclavian central line are stable in position. Osseous structures are intact. CONCLUSION: 1. Stable bibasilar densities. 2. Cardiomegaly. Salty Hernandez MD on September 05, 2017 at 6:15 Board Certified Radiologist. This report was verified electronically.
--- NOTE | 2017-09-05 16:44 | DEATH SUM ---
Summary Demographics Date Pronounced : Sep 05, 2017 Time Of : 0522 Pronounced By: Dr. Nava Preliminary Cause of : Cardiac arrest Payam Spears MD Sep 05, 2017 16:44
--- NOTE | 2017-09-05 17:46 | HHI.DS ---
Summary Note Date of : Sep 05, 2017 Time Of : 521 Admission Date Sep 03, 2017 at 17:15 Admitting Diagnosis NSTEMI, unstable angina Diagnosis at Time of : (1) Acute hypoxemic respiratory failure ICD Code: J96.01 - Acute respiratory failure with hypoxia Diagnosis: Principal (2) Pulmonary edema ICD Code: J81.1 - Chronic pulmonary edema Diagnosis: Principal (3) NSTEMI (non-ST elevated myocardial infarction) ICD Code: I21.4 - Non-ST elevation (NSTEMI) myocardial infarction Diagnosis: Principal (4) Cardiogenic shock ICD Code: R57.0 - Cardiogenic shock Diagnosis: Principal (5) Congestive heart failure (CHF) ICD Code: I50.9 - Heart failure, unspecified Diagnosis: Principal (6) Atrial fibrillation with rapid ventricular response ICD Code: I48.91 - Unspecified atrial fibrillation Diagnosis: Principal (7) Chest pain ICD Code: R07.9 - Chest pain, unspecified Diagnosis: Principal (8) Paroxysmal atrial fibrillation ICD Code: I48.0 - Paroxysmal atrial fibrillation Diagnosis: Secondary (9) Aortic stenosis, severe ICD Code: I35.0 - Nonrheumatic aortic (valve) stenosis Diagnosis: Secondary Procedures Endotracheal intubation and central line placement 09/04/17 Cardiac catheterization 09/04/17 CPR 09/05/17 Brief History This is an 86-year-old female with a history of severe aortic stenosis who was deciding whether or not she wanted to pursue transcatheter aortic valve replacement as an outpatient who was recently admitted to an outside hospital for an STEMI secondary to her aortic stenosis who presents with a few day history of worsening shortness of breath and exertional dyspnea and was found to be in new onset A. fib RVR along with hypotension, lactic acidosis, and positive troponins. She denies overt chest pain. Does state she feels very fatigued and unable to do the same things that she was able to do earlier. Over the past few months she's had a fairly rapid decline in functional status and her retirement facility. She does say that her binder coverstitch was talking to her about transcatheter aortic valve replacement, she does not know if she wants to undergo this. She has idiopathic cytopenic purpura and is followed by a returns clerk. In the emergency department, and amiodarone infusion was started along with norepinephrine to maintain coronary perfusion pressure. CBC/BMP: 09/04/17 0616 09/04/17 0616 Significant Findings Laboratory Tests Test 09/03/17 15:40 09/03/17 22:49 09/04/17 00:12 09/04/17 06:16 Red Blood Count 3.71 MIL/MM3 (4.00-5.30) 3.55 MIL/MM3 (4.00-5.30) Hemoglobin 11.0 GM/DL (11.6-15.3) 10.5 GM/DL (11.6-15.3) Hematocrit 33.1 % (35.0-46.0) 32.1 % (35.0-46.0) Platelet Count 67 TH/MM3 (150-450) Mean Platelet Volume 11.5 FL (7.0-11.0) 13.2 FL (7.0-11.0) Neutrophils (%) (Auto) 71.7 % (16.0-70.0) Monocytes (%) (Auto) 8.1 % (0.0-8.0) Platelet Estimate LOW (NORMAL) Platelet Morphology Comment ENLARGED (NORMAL) Prothrombin Time 11.9 SEC (9.8-11.6) Blood Urea Nitrogen 27 MG/DL (7-18) 23 MG/DL (7-18) Creatinine 1.15 MG/DL (0.50-1.00) Random Glucose 176 MG/DL (74-106) 118 MG/DL (74-106) Albumin 3.3 GM/DL (3.4-5.0) Aspartate Amino Transf (AST/SGOT) 131 U/L (15-37) Alanine Aminotransferase (ALT/SGPT) 115 U/L (10-53) Chloride Level 108 MEQ/L (98-107) Estimat Glomerular Filtration Rate 45 ML/MIN (>89) 60 ML/MIN (>89) Troponin I 0.30 NG/ML (0.02-0.05) 22.90 NG/ML (0.02-0.05) B-Type Natriuretic Peptide 787 PG/ML (0-100) Activated Partial Thromboplast Time 32.6 SEC (24.3-30.1) Calcium Level 8.3 MG/DL (8.5-10.1) Test 09/04/17 12:00 09/04/17 12:25 09/04/17 14:46 09/04/17 14:58 Activated Partial Thromboplast Time 36.4 SEC (24.3-30.1) Total Creatine Kinase 468 U/L (26-192) Creatine Kinase MB 38.5 NG/ML (0.5-3.6) Creatine Kinase MB % 8.2 % (0.0-4.0) Troponin I 16.70 NG/ML (0.02-0.05) 14.50 NG/ML (0.02-0.05) Urine Turbidity HAZY (CLEAR) Urine Nitrite POS (NEG) Urine Leukocyte Esterase SMALL (NEG) Urine Bacteria MANY /hpf (NONE) Urine Mucus FEW /lpf (OCC) Arterial Blood Partial Pressure CO2 36 mmHg (38-42) Blood Gas Hemoglobin 10.6 G/DL (12.0-16.0) Test 09/05/17 02:00 Troponin I 12.90 NG/ML (0.02-0.05) Imaging Last Impressions Chest X-Ray 09/03/17 1538 Signed Impressions: Service Date/Time: Sunday, September 03, 2017 15:39 - CONCLUSION: 1. Stable slight blunting of the left costophrenic sulcus likely representing a small pleural effusion. There is questionable trace right pleural fluid as well. 2. Stable bilateral interstitial prominence. Regan Pyane MD Hospital Course This is an 86-year-old female with a history of severe aortic stenosis who was deciding whether or not she wanted to pursue transcatheter aortic valve replacement as an outpatient who was recently admitted to an outside hospital for an STEMI secondary to her aortic stenosis who presents with a few day history of worsening shortness of breath and exertional dyspnea and was found to be in new onset A. fib RVR along with hypotension, lactic acidosis, and positive troponins. She denies overt chest pain. Does state she feels very fatigued and unable to do the same things that she was able to do earlier. Over the past few months she's had a fairly rapid decline in functional status and her retirement facility. She does say that her binder coverstitch was talking to her about transcatheter aortic valve replacement, she does not know if she wants to undergo this. She has idiopathic cytopenic purpura and is followed by a returns clerk. In the emergency department, and amiodarone infusion was started along with norepinephrine to maintain coronary perfusion pressure. !: Remains on Amiodarone and IV heparin. Complaints of intermittent chest pain. Troponin peaked at 23. Getting cardiac catheterization by Dr. Sidhu today. Patient is requesting PO TAVR eval at [place]. Same day afternoon patient acutely decompensated, developed hypoxemic respiratory failure and was intubated and placed on mechanical ventilation. A central line was placed to administer Levophed for shock. I contacted Dr. Sidhu who did an emergency cardiac catheterization. There was only mild to moderate coronary artery disease and no critical stenosis. Patient developed cardiac arrest early am 09/05/17 and at 0522, 09/05/17. Payam Spears MD Sep 05, 2017 17:46
== END 2017-09-05 05:22 | disposition expired ==
LOC: NEPC 15:27 → NEDA 17:15 → HIMN 22:35
PROVIDERS: ADMIT Internal Medicine; ATTEND Internal Medicine
PROC: B2111ZZ Fluoroscopy of Multiple Coronary Arteries using Low Osmolar Contrast (ICD-10-PCS; 2017-09-04)
PROC: 0BH17EZ Insertion of Endotracheal Airway into Trachea, Via Natural or Artificial Opening (ICD-10-PCS; 2017-09-04)
PROC: 02HV33Z Insertion of Infusion Device into Superior Vena Cava, Percutaneous Approach (ICD-10-PCS; 2017-09-04)
PROC: 5A1935Z Respiratory Ventilation, Less than 24 Consecutive Hours (ICD-10-PCS; principal; 2017-09-04 16:15)
PROC: 5A12012 Performance of Cardiac Output, Single, Manual (ICD-10-PCS; 2017-09-05)
DX: I21.4 Non-ST elevation (NSTEMI) myocardial infarction (principal); J96.01 Acute respiratory failure with hypoxia; R57.0 Cardiogenic shock; D69.3 Immune thrombocytopenic purpura; N17.9 Acute kidney failure, unspecified; E87.2 Acidosis; I13.0 Hypertensive heart and chronic kidney disease with heart failure and stage 1 through stage 4 chronic kidney disease, or unspecified chronic kidney disease; I25.10 Atherosclerotic heart disease of native coronary artery without angina pectoris; I48.0 Paroxysmal atrial fibrillation; I50.9 Heart failure, unspecified; I35.0 Nonrheumatic aortic (valve) stenosis; S81.812A Laceration without foreign body, left lower leg, initial encounter; H40.9 Unspecified glaucoma; J45.909 Unspecified asthma, uncomplicated; E78.5 Hyperlipidemia, unspecified; N18.9 Chronic kidney disease, unspecified; I87.2 Venous insufficiency (chronic) (peripheral); M19.90 Unspecified osteoarthritis, unspecified site; Z86.711 Personal history of pulmonary embolism; Z86.718 Personal history of other venous thrombosis and embolism; Z96.651 Presence of right artificial knee joint
CPT/HCPCS: 31500; 36556; 36600; 71010; 80048; 80053; 81001; 82550; 82552; 82805; 82948; 83690; 83735; 83880; 84484; 85025; 85027; 85610; 85730; 87077; 87086; 87186; 87641; 92950; 93005; 93458; 94002; 94003; 94640; 94664; 94667; 95819; 96360; C1760; C1769; C1893; G0269; J0171; J0282; J1644; J1940; J2250; J3010; J7030; J7040; J7050; J7060; P9047; Q9967